=== PATIENT | male | born 1960 | race Caucasian/White ===

== ENCOUNTER 2018-05-28 05:49 | Inpatient (IN) ==
--- NOTE | 2018-05-08 09:18 | PAT Medication Instructions ---
Medication Instructions Date of Service May 08, 2018 Home Medications aspirin [Aspir-81] 81 mg PO DAILY atorvastatin 40 mg PO HS carbamazepine [Tegretol] 2 tab PO HS carbamazepine [Tegretol] 3 tab PO QAM carvedilol 3.125 mg PO BID clopidogrel 75 mg PO HS lamotrigine 300 mg PO HS multivitamin [Multiple Vitamins] 1 tab PO DAILY pantoprazole 40 mg PO HS ramipril 2.5 mg PO QAM ASK your prescriber and surgeon clopidogrel 75 mg PO HS aspirin [Aspir-81] 81 mg PO DAILY DO NOT take the morning of surgery multivitamin [Multiple Vitamins] 1 tab PO DAILY ramipril 2.5 mg PO QAM Take morning of surgery With a small sip of water, OTHERWISE NOTHING TO EAT OR DRINK AFTER MIDNIGHT: carbamazepine [Tegretol] 3 tab PO QAM carvedilol 3.125 mg PO BID Take evening before surgery atorvastatin 40 mg PO HS carbamazepine [Tegretol] 2 tab PO HS carvedilol 3.125 mg PO BID lamotrigine 300 mg PO HS pantoprazole 40 mg PO HS Other Notes If you have any questions please call us at [phone] or [phone] or [phone] or [phone]
--- NOTE | 2018-05-09 16:24 | PAT Medication Instructions ---
Medication Instructions Date of Service May 09, 2018 Home Medications aspirin [Aspir-81] 81 mg PO DAILY 05/02/18 05/02/18 05/02/18 atorvastatin 40 mg PO HS 05/02/18 05/02/18 05/01/18 carbamazepine [Tegretol] 2 tab PO HS 05/02/18 05/02/18 05/01/18 carbamazepine [Tegretol] 3 tab PO QAM 05/02/18 05/02/18 05/02/18 carvedilol 3.125 mg PO BID 05/02/18 05/02/18 05/02/18 clopidogrel 75 mg PO HS 05/02/18 05/02/18 05/01/18 lamotrigine 300 mg PO HS 05/02/18 05/02/18 05/01/18 multivitamin [Multiple Vitamins] 1 tab PO DAILY 05/02/18 05/02/18 05/02/18 pantoprazole 40 mg PO HS 05/02/18 05/02/18 05/01/18 ramipril 2.5 mg PO QAM Take morning of surgery With a small sip of water, OTHERWISE NOTHING TO EAT OR DRINK AFTER MIDNIGHT: Insulin Dependent Diabetic Patients * Test your blood sugar the morning of surgery * If Blood Sugar is GREATER THAN 150, take HALF of your regular dose of: * If Blood Sugar is LESS THAN 150, DO NOT TAKE ANY: Other Notes If you have any questions please call us at [phone] or [phone] or [phone] or [phone]
--- NOTE | 2018-05-10 12:01 | Anesthesiology Consultation ---
Date of Service May 10, 2018 Assessment & Plan (1) Encounter for pre-operative examination: - Continue ASA perioperatively; plavix on hold 7 days prior to surgery per surgeon/prescriber - Cardio= 10/02/17= "doing well from a cardiac standpoint.. remains active and has not had a recurrence in chest pains or shortness of breath." F/U in one year recommended. Chart Review Chart Review: Acceptable Risk for Surgery and Patient seen in Pre Admission Testing Teaching & Discussion Pre-Anesthesia Teaching/Discussion Notes: Instructed NPO after midnight before surgery,except medications with 15 cc of water. Medication instructions provided according to the PAT guidelines. History Surgery Operation Date: 05/28/18 12:05 Proposed Procedures p L3-S1 Decompression and Fusion - Joe Palafox DO Height/Weight Height: 5 ft 11 in Weight: 99.1 kg Allergies Allergy/AdvReac Type Severity Reaction Status Date / Time iv contrast AdvReac Intermediate SEE NOTES Uncoded 05/10/18 12:57 Medications Home Medications Medication Instructions Recorded Confirmed Last Taken aspirin [Aspir-81] 81 mg PO DAILY 05/02/18 05/02/18 05/02/18 atorvastatin 40 mg PO HS 05/02/18 05/02/18 05/01/18 carbamazepine [Tegretol] 2 tab PO HS 05/02/18 05/10/18 Unknown carbamazepine [Tegretol] 3 tab PO QAM 05/02/18 05/10/18 Unknown carvedilol 3.125 mg PO BID 05/02/18 05/02/18 05/02/18 clopidogrel 75 mg PO HS 05/02/18 05/02/18 05/01/18 lamotrigine 300 mg PO HS 05/02/18 05/02/18 05/01/18 multivitamin [Multiple Vitamins] 1 tab PO DAILY 05/02/18 05/02/18 05/02/18 pantoprazole 40 mg PO HS 05/02/18 05/02/18 05/01/18 ramipril 2.5 mg PO QAM 05/02/18 05/02/18 05/02/18 Past Medical History Medical History Acid reflux 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 CAD (coronary artery disease) S/P STENTS X 2 TO [facility] (2014) Grand mal seizure LAST SEIZURE 30+ YEARS AGO History of heart attack S/P STENTS X 2 TO [facility] (2014) Obesity Scoliosis Past Family History Family History Father Family history of lung cancer Past Surgical History Surgical History History of appendectomy History of cardiac cath 2015= STENTS X 2 History of colonoscopy History of foot surgery B/L (CYSTECTOMY) History of hernia repair Past Anesthesia History No Family Hx of Anesthesia Complications and Other DIFFICULTY URINATING POST-OP FOOT SURGERY History of PONV No Motion Sickness Screening History of Motion Sickness: No Social History Smoking Status: Never smoker Do You Dip or Chew Tobacco: No Hx Alcohol Use: No Hx Substance Use: No substance use type: does not use Exercise / Class Metabolic Activity III < 4 Walking/Shop/Light housework Review of Systems Patient reports LBP with B/L radiculopathy/neuropathy. Patient denies chest pain, shortness of breath, dyspnea on exertion, cough, wheezing, palpitations. Physical Exam Vital Signs VITALS BP 119/73 P 67 TEMP 97.5 SP02 96%RA RESP 18 PHYSICAL Full neck and c-spine range of motion. + cervicalgia with extension Full TMJ range of motion. TMD 3 finger breaths Mallampati Score 2 Dentition: "permanent partial" on lower Lungs: clear throughout to auscultation Cardiac: regular rate and rhythm, no murmurs noted Spine: normal Carotid arteries: negative bruit Extremities: no edema Testing Electrocardiogram Date: 05/10/18 Findings: + NSR @ (67) Chest X-Ray Date: 05/03/18 Findings: + NAD Left basilar subsegmental atelectasis without current evidence of alveolar consolidation. Heart mildly enlarged. Dextroscoliosis in thoracic spine again noted. Echocardiogram Date: 08/20/14 LVEF 60%. No RWMA. Mild MR. Cardiac Catheterization Date: 08/20/14 3V CAD (LAD, CX, RCA). LVEF "normal." Successful direct stenting to dRCA with Xience TRUNG. PTCA to right PDA. Unsuccessful PRCA of very small posterolateral branch 100% reduced to 40%. Laboratory Results 05/10/18 11:52 05/10/18 11:52 Blood Type B Positive 05/10/18 11:52 Antibody Screen NEGATIVE 05/10/18 11:52 PT 10.3 Seconds (9.0-12.0) 05/10/18 11:52 INR 1.0 (0.9-1.1) 05/10/18 11:52 APTT 24.6 Seconds (21.0-31.0) 05/10/18 11:52 Urine Color Dark Yellow 05/10/18 Unknown Urine Appearance Clear (Clear) 05/10/18 Unknown Urine pH 6.5 (4.5-7.5) 05/10/18 Unknown Ur Specific [place] 1.029 (1.000-1.030) 05/10/18 Unknown Urine Protein Negative (Negative) 05/10/18 Unknown Urine Glucose (UA) Negative (Negative) 05/10/18 Unknown Urine Ketones Trace (Negative) H 05/10/18 Unknown Urine Nitrite Negative (Negative) 05/10/18 Unknown Ur Leukocyte Esterase Negative (Negative) 05/10/18 Unknown
[2018-05-10 13:11] LABS: Basophils # (auto) 0.05 K/uL (0-0.2); Basophils % (auto) 0.9 %; Eosinophils # (auto) 0.14 K/uL (0-0.5); Eosinophils % (auto) 2.5 %; Hematocrit (blood only) 44.7 % (42-52); Hemoglobin 15.5 g/dL (14.0-18.0); Immature Granulocytes # (auto) 0.01 K/uL (0.00-0.02); Immature Granulocytes % (auto) 0.2 %; Lymphocytes # (auto) 2.17 K/uL (1.2-3.4); Lymphocytes % (auto) 38.3 %; Mean Corpuscular Hgb Conc 34.7 g/dL (32-36); Mean Corpuscular Volume 94.3 fL (80-100); Mean Platelet Volume 9.5 fL (7.4-10.4); Monocytes # (auto) 0.61 K/uL (0.11-0.59); Monocytes % (auto) 10.8 %; Neutrophils # (auto) 2.69 K/uL (1.4-6.5); Neutrophils % (auto) 47.3 %; Platelet Count 242 K/uL (130-400); RDW Coefficient of Variation 12.4 % (11.5-14.5); RDW Standard Deviation 42.6 fL (36.4-46.3); Red Blood Count 4.74 M/uL (4.7-6.1); White Blood Count 5.67 K/uL (4.8-10.8)
[2018-05-10 13:13] LABS: Appearance Urine Clear (Clear); Bilirubin Urine Negative (Negative); Blood Urine Negative (Negative); Color Urine Dark Yellow; Glucose Urine UA Negative (Negative); Ketones Urine Trace (Negative); Leukocyte Esterase Urine Negative (Negative); Nitrite Urine Negative (Negative); Protein Urine Negative (Negative); Specific Gravity Urine 1.029 (1.000-1.030); Urobilinogen Urine Negative (Negative); pH Urine 6.5 (4.5-7.5)
[2018-05-10 13:25] LABS: Partial Thromboplastin Ratio 0.9; Partial Thromboplastin Time 24.6 Seconds (21.0-31.0); Prothrombin Time 10.3 Seconds (9.0-12.0)
[2018-05-10 14:40] LABS: BUN Creatinine Ratio 13.3 (10-20); Calcium 8.2 mg/dl (8.5-10.1); Creatinine Clr Calc Pharmacy 88.4 ml/min; Est GFR (African American) 86.6; Est GFR (Non-African American) 74.7
[2018-05-28] MEDS ORDERED: CeleBREX 200 MG CAP PO SCH (06:00)
[2018-05-28] MEDS ORDERED: GABAPENTIN 300 MG PO SCH (06:00)
[2018-05-28] MEDS ORDERED: ACETAMINOPHEN 500 MG TAB PO SCH (06:00)
[2018-05-28] MEDS ORDERED: CEFAZOLIN 3000MG 65 ML IV SCH (06:00)
[2018-05-28] MEDS ORDERED: LR 15ML/HR IV SCH (06:00)
[2018-05-28] MEDS ORDERED: HYDROmorphone INJ 2 MG/ML SYR/VIAL ONE ×2 (06:28→09:11)
[2018-05-28] MEDS ORDERED: GLYCOPYRROLATE 0.2 MG/ML VIAL ONE (06:28)
[2018-05-28] MEDS ORDERED: NEOSTIGMINE METHYLSULFATE 1 MG/ML 10ML VIAL ONE (06:28)
[2018-05-28] MEDS ORDERED: LIDOCAINE HCL 2% 2 ML VIAL/AMP(20MG/ML) INFIL ONE (06:28)
[2018-05-28] MEDS ORDERED: ONDANSETRON INJ 2 MG/ML 2 ML VIAL ONE (06:28)
[2018-05-28] MEDS ORDERED: MIDAZOLAM HCL 1 MG/ML 2ML VIAL ONE (06:28)
[2018-05-28] MEDS ORDERED: DEXAMETHASONE SOD INJ 4 MG/ML VIAL ONE (06:28)
[2018-05-28] MEDS ORDERED: ROCURONIUM BROMIDE 10 MG/ML 5 ML VIAL ONE ×2 (06:28→10:17)
[2018-05-28] MEDS ORDERED: PROPOFOL IV EMULSION 10 MG/ML 20 ML VIAL IV ONE (06:28)
[2018-05-28] MEDS ORDERED: fentaNYL citrate 100 MCG/2 ML VIAL ONE ×4 (06:28→09:53)
[2018-05-28] MEDS ORDERED: BACITRACIN INJ 50,000 UNIT VIAL ONE (06:53)
[2018-05-28] MEDS ORDERED: BUPIVACAINE/EPINEPHRINE 0.5% MPF 1:200,000 30 ML VIAL ONE (06:53)
[2018-05-28] MEDS ORDERED: SODIUM CHLORIDE 0.9% INJ 10 ML VIAL ONE (07:14)
--- NOTE | 2018-05-28 07:29 | History & Physical Bridge Note ---
Date of Service May 28, 2018 History & Physical Bridge Note I have examined the patient, reviewed the History & Physical and in the interval since the performance of the History & Physical I have noted the following changes of clinical significance: no changes noted
--- NOTE | 2018-05-28 07:30 | History & Physical Report ---
Date of Service May 28, 2018 Assessment & Plan (1) Spinal stenosis, lumbar region with neurogenic claudication: L3-S1 decompression and fusion Present on Admission?: Yes History of Present Illness Chief Complaint: Back and leg pain Primary Care Provider: Roland Cali This is a 57-year-old male that presents with chronic persistent back and leg pain. After failing extensive course of nonoperative care is here for surgical intervention. Allergies Allergy/AdvReac Type Severity Reaction Status Date / Time iv contrast AdvReac Intermediate SEE NOTES Uncoded 05/28/18 06:12 Home Medications Home Medications Medication Instructions Recorded Confirmed Type aspirin [Aspir-81] 81 mg PO DAILY 05/02/18 05/02/18 History atorvastatin 40 mg PO HS 05/02/18 05/28/18 History carbamazepine [Tegretol] 2 tab PO HS 05/02/18 05/28/18 History carbamazepine [Tegretol] 3 tab PO QAM 05/02/18 05/10/18 History carvedilol 3.125 mg PO BID 05/02/18 05/02/18 History clopidogrel 75 mg PO HS 05/02/18 05/02/18 History lamotrigine 300 mg PO HS 05/02/18 05/02/18 History multivitamin [Multiple Vitamins] 1 tab PO DAILY 05/02/18 05/28/18 History ramipril 2.5 mg PO QAM 05/02/18 05/02/18 History Past Med/Surg History Family History Father Family history of lung cancer Social History Preferred Language: Salvadorean Communication Ability: Effective Communication Ability Comment: NO EYESIGHT RIGHT EYE Food Or Baggage Handling [place] Required: No Beliefs That Will Affect Care: None Current Living Situation: Spouse Other Information That Helps Us Care for You: No Feels Safe at Home: Yes Smoking Status: Never smoker Hx Alcohol Use: No Hx Substance Use: No Physical Exam Vital Signs (Past 24 Hours): Last Vital Signs Temp 36.8 C 05/28/18 06:16 Pulse 79 05/28/18 06:16 Resp 16 05/28/18 06:16 BP 134/83 05/28/18 06:16 Pulse Ox 95 05/28/18 06:16 Results & Data Medications Administered Acetaminophen (Tylenol) 1,000 mg PO PREOP GRACE Stop: 05/28/18 18:00 Last Admin: 05/28/18 06:31 Dose: 1,000 mg Documented by: [id number] Celecoxib (Celebrex) 200 mg PO PREOP GRACE Stop: 05/28/18 18:00 Last Admin: 05/28/18 06:31 Dose: 200 mg Documented by: [id number] Gabapentin (Neurontin) 300 mg PO PREOP GRACE Stop: 05/28/18 18:00 Last Admin: 05/28/18 06:31 Dose: 300 mg Documented by: [id number] Lactated Ringer's (Lr) 1,000 mls @ 15 mls/hr IV .Q24H GRACE Stop: 05/29/18 05:59 Last Admin: 05/28/18 06:34 Dose: 15 mls/hr Documented by: [id number]
[2018-05-28] MEDS ORDERED: MEPERIDINE HCL 25 MG/ML CARP IV PRN (07:35)
[2018-05-28] MEDS ORDERED: LABETALOL HCL IV 5 MG/ML 20ML IV PRN (07:35)
[2018-05-28] MEDS ORDERED: fentaNYL citrate 100 MCG/2 ML VIAL IV PRN (07:35)
[2018-05-28] MEDS ORDERED: PHENYLEPHRINE 100MCG/ML 5ML SYR IV PRN (07:35)
[2018-05-28] MEDS ORDERED: ONDANSETRON INJ 2 MG/ML 2 ML VIAL IV PRN (07:35)
[2018-05-28] MEDS ORDERED: ePHEDrine sulfate 50 MG/ML AMP IV PRN (07:35)
[2018-05-28] MEDS ORDERED: HYDROmorphone INJ 1 MG/ML SYRINGE IV PRN (07:35)
[2018-05-28] MEDS ORDERED: ATROPINE SULFATE 0.1 MG/ML 10ML SYR IV PRN (07:35)
[2018-05-28] MEDS ORDERED: FLOSEAL HEMOSTATIC MATRIX 10ML TOP ONE (08:11)
[2018-05-28] MEDS ORDERED: ePHEDrine sulfate 50 MG/ML SYR ONE (08:43)
[2018-05-28] MEDS ORDERED: PHENYLEPHRINE 100MCG/ML 5ML SYR ONE (08:43)
[2018-05-28] MEDS ORDERED: ePHEDrine sulfate 50 MG/ML AMP ONE (08:43)
[2018-05-28] MEDS ORDERED: ALBUMIN HUMAN 5% 12.5 GM/250 ML VIAL IV ONE ×2 (09:11→10:15)
[2018-05-28] MEDS ORDERED: METOCLOPRAMIDE HCL INJ 5 MG/ML 2 ML VIAL ONE (09:33)
--- NOTE | 2018-05-28 10:29 | Operative Report ---
Post Operative Report Pre & Post Diagnosis Operation Date: 05/28/18 07:45 Pre-Op Diagnosis: Spinal stenosis, lumbar region with neurogenic claudication Post-Op Diagnosis: Spinal stenosis, lumbar region with neurogenic claudication Procedure Operation Date: 05/28/18 07:45 Actual Procedures #1 lumbar decompression medial facetectomies foraminotomies L2-3 L3-4 L4-5 L5-S1 #2 posterior spinal fusion L3-4 L4-5 L5-S1. #3 placement posterior segmental instrumentation L3-S1. #4 interbody fusion L3-4 L4-5 per #5 placement of titanium cage 12 x 26 at L3-4 and 9 x 26 at L4-5. #6 treatment of local autograft in the posterior gutters. #7 placement Feese collagen sponge, mass graft in the posterior gutters and ostial amp and interbody space. Surgeon Joe Palafox DO Informatica Amna Vargas Estimated Blood Loss 750 Findings Consistent with Post-Op Diagnosis Specimens None Description of Procedure Patient was met with preoperatively case discussed all questions addressed. After informed consent obtained patient was taken to the operative suite underwent intubation and placed in a prone position on the Miguel table on top of the Lino frame. All bony prominences well-padded eyes inspected to ensure no external pressure placed upon. This point the lumbar spine was prepped and draped in the normal sterile fashion. Sharp dissection with the assistance of Bovie cautery was performed down to and exposing the lamina and transverse process of L3-L4-L5 and sacral ala bilaterally. From a caudal to cephalad fashion complete laminectomy of L5 L4 L3 partial laminectomy of L2 was performed including bilateral medial facetectomies and foraminotomies addressing severe stenosis. Pedicle screws were then placed in L3-L4-L5 and S1 levels bilaterally with assistance of fluoroscopy and the purposes madison placed by way of a transforaminal portion right complete discectomy of L4-5 was performed and endplates curetted to subcortical B bone and a 9 x 26 mm titanium cage filled ostium bone graft tapped in position. Then proceeded L3-[address] of a transforaminal approach on the right complete discectomy performed including the herniated disc completely removed. Endplates then curetted to subcortical mean bone and a 12 x 26 mm titanium cage filled with ostium bone graft tapped in position. The rods were then locked in final position bilaterally. The transverse processes of L3-L4-L5 and sacral ala bur to subcortical B bone. Infuse collagen sponge mass graft local autograft placed in the posterior gutters. 15 round KEERTHI drain inserted. Incision was then closed with 1 Vicryl in the fascia 2-0 Vicryl subtenons seen for Monocryl for final skin closure Steri- Strip sterile dressings placed. Patient will continue to PACU stable condition. Please note Amna Vargas present throughout the entire procedure involved in patient positioning complex portions of the surgery and final skin closure. I attest to the content of the Intraoperative Record and any orders documented therein. Any exceptions are noted below.
--- NOTE | 2018-05-28 10:34 | Fluoroscopy Report ---
FL lumbar spine 2-3V CLINICAL HISTORY: 57 years-old Male presenting with L4-5 DECOMPRESSION/FUSION. TECHNIQUE: 3 fluoroscopic image(s) recorded as part of an intraoperative procedure. COMPARISON: None. FINDINGS/IMPRESSION: Postsurgical changes of bilateral posterior transpedicular screw not fixation of L3-S1 with associate d laminectomy defects and interbody spacers at L3-4 and L4-5. Please see surgical report for further details. Fluoroscopy dosage (mGy): 19.43. Fluoroscopy time: 21.2 seconds. Number or time of high level fluoroscopy (HLF), digital spot, or digital subtraction images: 0. Electronically signed by: Jean Barone M.D. 05/28/2018 10:33 AM
[2018-05-28] MEDS ORDERED: ESMOLOL HCL INJ 10 MG/ML 10ML VIAL IV ONE (10:50)
--- NOTE | 2018-05-28 11:07 | Anesthesiology Progress Note ---
Date of Service May 28, 2018 Anesthesia Post Procedure Vital Signs Vital Signs: Temp Pulse Pulse Resp BP Pulse Ox 05/28/18 11:05 84 15 147/90 H 100 05/28/18 10:55 84 15 142/80 H 99 05/28/18 10:46 36.8 C 84 20 128/76 99 05/28/18 06:16 36.8 C 79 16 134/83 95 Pain Intensity Bilateral Lower Back: Pain Intensity: 2 Back: Pain Intensity: 0 Notes Mental Status: alert / awake / arousable Patient Amnestic to Procedure: Yes Nausea / Vomiting: adequately controlled Pain: adequately controlled Airway Patency, RR, SpO2: stable & adequate BP & HR: stable & adequate Hydration State: stable & adequate Anesthetic Complications: no major complications apparent and Pt Satisfied with anesthetic care Notes: The patient is awake and his vital signs are stable.
[2018-05-28] MEDS ORDERED: BISACODYL 10 MG SUPP PR PRN (11:41)
[2018-05-28] MEDS ORDERED: METOCLOPRAMIDE HCL INJ 5 MG/ML 2 ML VIAL IV PRN (11:41)
[2018-05-28] MEDS ORDERED: ONDANSETRON 4 MG TAB PO PRN (11:41)
[2018-05-28] MEDS ORDERED: DO NOT ADMINISTER FLU VACCINE PRN (11:41)
[2018-05-28] MEDS ORDERED: TRAMADOL HCL 50 MG TABLET PO PRN (11:41)
[2018-05-28] MEDS ORDERED: FAMOTIDINE 20 MG TAB PO PRN (11:41)
[2018-05-28] MEDS ORDERED: OXYCODONE HCL IR 5 MG TAB (IMMEDIATE RELEASE) PO PRN (11:41)
[2018-05-28] MEDS ORDERED: HYDROmorphone INJ 0.5 MG/0.5 ML SYR IV PRN (11:41)
[2018-05-28] MEDS ORDERED: DO NOT ADMINISTER PNEUMOCOCCAL VACCINE PRN (11:41)
[2018-05-28] MEDS ORDERED: ALUMINUM/MAGNESIUM SUSP 30 ML UDC PO PRN (11:41)
[2018-05-28] MEDS ORDERED: LORazepam 0.5 MG/1 ML VIAL IV PRN (11:41)
[2018-05-28] MEDS ORDERED: PROMETHAZINE HCL 12.5 MG in SODIUM CHLORIDE 0.9% 50 ML IV PRN (11:41)
[2018-05-28] MEDS ORDERED: ACETAMINOPHEN 1,000 MG/100 ML VIAL IV PRN (11:41)
[2018-05-28] MEDS ORDERED: LORazepam 0.5 MG TAB PO PRN (11:41)
[2018-05-28] MEDS ORDERED: SOD PHOSPHATE/SOD BIPHOSPHATE ENEMA 132 ML BTL PR PRN (11:41)
[2018-05-28] MEDS ORDERED: MAGNESIUM HYDROXIDE SUSP 30 ML UDC PO PRN (11:41)
[2018-05-28] MEDS: LACTATED RINGER'S 1,000 ML IV SCH ×2 (12:51→20:27)
[2018-05-28] MEDS ORDERED: LARYING-O-JET KIT (LTA) ONE (13:39)
[2018-05-28] MEDS: KETOROLAC TROMETHAMINE 15 MG/ML VIAL IV SCH ×3 (13:52→23:34)
--- NOTE | 2018-05-28 13:59 | Consultation ---
Date of Consultation May 28, 2018 Assessment & Plan (1) Status post lumbar surgery: Post op day# 0 S/P Lumbar Decompression and Fusion L3-S1 by Dr Palafox Currently post op pt reports pain controlled EBL#750ml -pain management per ortho -recommend avoiding tramadol as pt with seizure disorder -wound management per ortho -PT/OT as appropriate -DVT prophylaxis per ortho -incentive spirometry -monitor H&H for acute blood loss anemia (2) CAD (coronary artery disease): Hx STEMI and cardiac cath s/p Stent to RCA & Right posterior descending artery on 08/20/[address] [facility] Denies CP, SOB -plavix has been on hold for one week, resume when appropriate per ortho -continue aspirin, atorvastain, carvedilol -hold ramipril at this time while post-op and reassess tomorrow (3) Seizure disorder: Reports hasn't had a seizure for several years -continue Tegretol, lamotrigine -recommend avoiding tramadol DVT Prophylaxis -SCDs per ortho Follows with Dr Viraj Hooks for routine care Pt was seen with Dr Castillo. See addendum Pt will be followed tomorrow by Dr Castillo. Supervising Physician Co-Signing Physician Notes Pt was seen and examined. Agreed with Jimena FOSTER exam, assessment and plan. S/P day#0 Lumbar Decompression and Fusion L3-S1 by Dr Palafox. Pain control. Incentive spirometry. Fall precaution. Montior H/H. Thank you for the consult MD Jonathan History of Present Illness Reason for Consultation: Postop medical management Attending Physician: Joe Palafox DO History of Present Illness Patient is 57-year-old male with PMH seizure disorder, CAD s/p stent to RCA and right posterior descending in 2014 seen in postop medical management consult s/p lumbar decompression and fusion L3-S1 today by Dr. Palafox. Post op patient reports doing well current pain.Denies fever/chills, diaphoresis, N/V/D/C, REDDY, dizziness, syncope, vision changes, neck pain, CP, SOB, orthopnea, palpitations, cough, sore throat, choking, otalgia, rhinorrhea, abdominal pain, paresthesias, weakness, extremity weakness, extremity edema, rashes, urinary symptoms. Reports some mild numbness/tingling sensation to left foot. States prior to surgery had numbness tingling of bilateral feet and feels this has much improved. Currently has urinary catheter in. Reports last BM yesterday. Drinking fluids well. Denies any nausea or vomiting. Denies fever/chills, diaphoresis, REDDY, dizziness, seizure, CP, SOB, palpitations, cough, sore throat, choking, abdominal pain, p extremity edema, rashes. Allergies Allergy/AdvReac Type Severity Reaction Status Date / Time iv contrast AdvReac Intermediate SEE NOTES Uncoded 05/28/18 06:12 Home Medications Home Medications Medication Instructions Recorded Confirmed Type aspirin [Aspir-81] 81 mg PO DAILY 05/02/18 05/02/18 History atorvastatin 40 mg PO HS 05/02/18 05/28/18 History carvedilol 3.125 mg PO BID 05/02/18 05/02/18 History clopidogrel 75 mg PO HS 05/02/18 05/02/18 History multivitamin [Multiple Vitamins] 1 tab PO DAILY 05/02/18 05/28/18 History ramipril 2.5 mg PO BID 05/02/18 05/28/18 History carbamazepine [Tegretol XR] 400 mg PO PM 05/28/18 05/28/18 History carbamazepine [Tegretol XR] 600 mg PO DAILY 05/28/18 05/28/18 History oxycodone 5 mg PO Q4H PRN #30 tab 05/28/18 Rx lamotrigine [Lamictal XR] 300 mg PO DAILY 05/30/18 05/30/18 History Patient History Medical History CAD (coronary artery disease) (Chronic) Hx STEMI and cardiac cath s/p Stent to RCA & Right posterior descending artery on 08/20/[address] Alexei Ortiz [facility] Seizure disorder (Chronic) Blindness (Chronic) RIGHT EYE S/P IV CONTRAST DYE REACTION Obesity (Chronic) Scoliosis (Chronic) Acid reflux (Resolved) Surgical History History of cardiac cath (Chronic) H/O umbilical hernia repair (Chronic) H/O inguinal hernia repair (Chronic) History of colonoscopy (Chronic) History of foot surgery (Resolved) B/L (CYSTECTOMY) History of appendectomy Social History Preferred Language: Khmer Beliefs That Will Affect Care: None marital status: Current Living Situation: Spouse Other Information That Helps Us Care for You: No Feels Safe at Home: Yes Smoking Status: Never smoker Hx Alcohol Use: No Hx Substance Use: No Review of Systems As per HPI, all other systems reviewed and negative Physical Exam Vital Signs (Past 24 Hours): Last Vital Signs Temp 36.3 C L 05/28/18 13:48 Pulse 83 05/28/18 13:48 Resp 16 05/28/18 13:48 BP 120/74 05/28/18 13:48 Pulse Ox 100 05/28/18 13:48 Physical Exam: General: no distress, obeses Head: normocephalic, atraumatic Eyes:conjunctiva non-injected, anicteric ENT: normal inspection external ears, nose, mucous membranes moist Neck: supple, trachea midline Lungs: clear, no respiratory distress, no wheezing/rhonchi/rales CV: RRR, no murmur, no pretibial edema Abd: normal BS, soft, protuberant, non-tender Ext: no cyanosis, no calf tenderness, bilateral pedal pushes and pulls intact, distal pulses intact Neuro: A&O x 3, no focal deficits noted, normal affect Skin: warm, dry
[2018-05-28] MEDS: CEFAZOLIN 2000MG 2,000 MG/15 ML SYR IV SCH ×2 (17:59→23:34)
[2018-05-28] MEDS: CARBAMAZEPINE 200 MG PO SCH (20:30)
[2018-05-28] MEDS: DOCUSATE SODIUM/SENNA 50/8.6MG TAB PO SCH (20:31)
[2018-05-28] MEDS: ATORVASTATIN 40 MG TAB PO SCH (20:31)
[2018-05-28] MEDS: CARVEDILOL 3.125 MG TAB PO SCH (20:31)
[2018-05-28] MEDS: lamoTRIgine 100 MG TAB PO SCH (20:31)
[2018-05-28] MEDS ORDERED: carBAMazepine 200 MG TABLET PO SCH (21:00)
[2018-05-28] MEDS ORDERED: CARBAMAZEPINE 200 MG TABCR PO SCH (21:00)
[2018-05-29] MEDS: LACTATED RINGER'S 1,000 ML IV SCH (03:17)
[2018-05-29] MEDS: POLYETHYLENE (MIRALAX) 17 GM PACK PO SCH ×4 (05:14→23:17)
[2018-05-29] MEDS: KETOROLAC TROMETHAMINE 15 MG/ML VIAL IV SCH (05:14)
[2018-05-29 05:48] LABS: Basophils # (auto) 0.01 K/uL (0-0.2); Basophils % (auto) 0.1 %; Eosinophils # (auto) 0.05 K/uL (0-0.5); Eosinophils % (auto) 0.7 %; Hematocrit (blood only) 30.7 % (42-52); Hemoglobin 10.5 g/dL (14.0-18.0); Immature Granulocytes # (auto) 0.01 K/uL (0.00-0.02); Immature Granulocytes % (auto) 0.1 %; Lymphocytes # (auto) 1.38 K/uL (1.2-3.4); Lymphocytes % (auto) 20.4 %; Mean Corpuscular Hgb Conc 34.2 g/dL (32-36); Mean Platelet Volume 8.7 fL (7.4-10.4); Monocytes # (auto) 0.74 K/uL (0.11-0.59); Monocytes % (auto) 10.9 %; Neutrophils # (auto) 4.59 K/uL (1.4-6.5); Neutrophils % (auto) 67.8 %; Platelet Count 150 K/uL (130-400); RDW Coefficient of Variation 12.3 % (11.5-14.5); RDW Standard Deviation 41.8 fL (36.4-46.3); White Blood Count 6.78 K/uL (4.8-10.8)
[2018-05-29 06:22] LABS: BUN Creatinine Ratio 15.4 (10-20); Creatinine Clr Calc Pharmacy 104.3 ml/min; Est GFR (African American) 106.5; Est GFR (Non-African American) 91.9; Potassium 3.7 mmol/L (3.5-5.1)
--- NOTE | 2018-05-29 07:19 | Anesthesiology Progress Note ---
Date of Service May 29, 2018 Anesthesia Post Procedure Vital Signs Vital Signs: Temp Pulse Pulse Resp BP BP Pulse Ox 05/29/18 05:24 110/64 05/29/18 03:15 37.2 C 92 H 15 91/52 L 93 05/28/18 23:18 36.7 C 77 16 111/64 99 05/28/18 19:59 36.4 C L 78 17 107/65 100 05/28/18 14:35 82 18 114/71 100 05/28/18 13:48 36.3 C L 83 16 120/74 100 05/28/18 12:38 36.3 C L 84 16 126/79 97 05/28/18 12:10 36.3 C L 77 16 126/78 100 05/28/18 11:48 36.3 C L 82 16 151/84 H 98 05/28/18 11:25 82 15 143/88 H 97 05/28/18 11:15 36.6 C 81 14 142/83 H 97 05/28/18 11:05 84 15 147/90 H 100 05/28/18 10:55 84 15 142/80 H 99 05/28/18 10:46 36.8 C 84 20 128/76 99 Pain Intensity Bilateral Lower Back: Pain Intensity: 2 Back: Pain Intensity: 1 Notes Mental Status: alert / awake / arousable Patient Amnestic to Procedure: Yes Nausea / Vomiting: adequately controlled Pain: adequately controlled Airway Patency, RR, SpO2: stable & adequate BP & HR: stable & adequate Hydration State: stable & adequate Anesthetic Complications: no major complications apparent and Pt Satisfied with anesthetic care
[2018-05-29] MEDS: CARVEDILOL 3.125 MG TAB PO SCH ×2 (08:28→21:20)
[2018-05-29] MEDS: MULTIVITAMIN TAB PO SCH (08:28)
[2018-05-29] MEDS: ASPIRIN 81 MG ECTAB PO SCH (08:28)
[2018-05-29] MEDS: CARBAMAZEPINE 200 MG PO SCH ×2 (08:29→21:21)
[2018-05-29] MEDS ORDERED: CARBAMAZEPINE 200 MG TABCR PO SCH (09:00)
[2018-05-29] MEDS ORDERED: ENALAPRIL MALEATE 10 MG TAB PO SCH (09:00)
--- NOTE | 2018-05-29 11:35 | Orthopedic Progress Note ---
Date of Service May 29, 2018 Assessment & Plan (1) Spinal stenosis, lumbar region with neurogenic claudication: We will initiate physical therapy today advance his bowel regiment anticipate discharge home in the next few days. Present on Admission?: Yes Subjective Patient's back pain is controlled leg pain improved Physical Exam Vital Signs (Past 24 Hours): Last Vital Signs Temp 37.1 C 05/29/18 11:31 Pulse 87 05/29/18 11:31 Resp 18 05/29/18 11:31 BP 107/63 05/29/18 09:45 Pulse Ox 97 05/29/18 11:31 Physical Exam: Patient demonstrates good strength testing appears comfortable.
[2018-05-29 16:14] LABS: Appearance Urine Clear (Clear); Bacteria Urine Automated Negative (Negative); Bilirubin Urine Negative (Negative); Blood Urine 1+ (Negative); Cast Urine Automated 0 /lpf (0-5); Color Urine Yellow; Epithelial Cell Urine Auto 0-5 /lpf (0-5); Glucose Urine UA Negative (Negative); Ketones Urine Negative (Negative); Leukocyte Esterase Urine Negative (Negative); Nitrite Urine Negative (Negative); Protein Urine Negative (Negative); RBC Urine Automated 0-4 /hpf (0-4); Specific Gravity Urine 1.014 (1.000-1.030); Urobilinogen Urine Negative (Negative); WBC Urine Automated 0 /hpf (0-5)
--- NOTE | 2018-05-29 16:41 | Consultation ---
Date of Consultation May 29, 2018 History of Present Illness Attending Physician: Joe Palafox DO Allergies Allergy/AdvReac Type Severity Reaction Status Date / Time iv contrast AdvReac Intermediate SEE NOTES Uncoded 05/28/18 06:12 Home Medications Home Medications Medication Instructions Recorded Confirmed Type aspirin [Aspir-81] 81 mg PO DAILY 05/02/18 05/02/18 History atorvastatin 40 mg PO HS 05/02/18 05/28/18 History carvedilol 3.125 mg PO BID 05/02/18 05/02/18 History clopidogrel 75 mg PO HS 05/02/18 05/02/18 History lamotrigine 300 mg PO PM 05/02/18 05/28/18 History multivitamin [Multiple Vitamins] 1 tab PO DAILY 05/02/18 05/28/18 History ramipril 2.5 mg PO BID 05/02/18 05/28/18 History carbamazepine [Tegretol XR] 400 mg PO PM 05/28/18 05/28/18 History carbamazepine [Tegretol XR] 600 mg PO DAILY 05/28/18 05/28/18 History oxycodone 5 mg PO Q4H PRN #30 tab 05/28/18 Rx Patient History Medical History CAD (coronary artery disease) (Chronic) Hx STEMI and cardiac cath s/p Stent to RCA & Right posterior descending artery on 08/20/[address] Alexei Ortiz [facility] Seizure disorder (Chronic) Scoliosis (Chronic) Acid reflux (Resolved) Blindness (Chronic) RIGHT EYE S/P IV CONTRAST DYE REACTION Obesity (Chronic) Surgical History History of cardiac cath (Chronic) H/O umbilical hernia repair (Chronic) H/O inguinal hernia repair (Chronic) History of colonoscopy (Chronic) History of foot surgery (Resolved) B/L (CYSTECTOMY) History of appendectomy Social History Preferred Language: Eritrean Communication Ability: Effective Communication Ability Comment: NO EYESIGHT RIGHT EYE Confidential Secretary Required: No Beliefs That Will Affect Care: None Current Living Situation: Spouse Other Information That Helps Us Care for You: No Feels Safe at Home: Yes Smoking Status: Never smoker Hx Alcohol Use: No Hx Substance Use: No Physical Exam Vital Signs (Past 24 Hours): Last Vital Signs Temp 37.0 C 05/29/18 15:19 Pulse 89 05/29/18 15:19 Resp 17 05/29/18 15:19 BP 125/73 05/29/18 15:19 Pulse Ox 96 05/29/18 15:19
[2018-05-29] MEDS ORDERED: ALBUT/IPRATROP 3MG/0.5MG NEB 3 ML VIAL NEB PRN (17:11)
[2018-05-29] MEDS ORDERED: SODIUM CHLORIDE 0.9% 1000ML 1,000 ML IV SCH (17:15)
--- NOTE | 2018-05-29 18:06 | Hospitalist Progress Note ---
Date of Service May 29, 2018 Assessment & Plan (1) Status post lumbar surgery: S/P day 1Lumbar Decompression and Fusion L3-S1 by Dr Palafox Pain controlled Continue PT/OT Incentive spirometry Hgb dropped to 10.5 Monitor H/H (2) Acute blood loss anemia: Due to post-op Hgb pre-op was 15 Hgb dropped to 10.5 today Monitor CBC daily and transfuse if needed (3) CAD (coronary artery disease): Hx STEMI and cardiac cath s/p Stent to RCA & Right posterior descending artery on 08/20/[address] [facility] continue aspirin, atorvastain, carvedilol Denies any chest pain Resume plavix when bleeding stable (4) Seizure disorder: continue Tegretol, lamotrigine recommend avoiding tramadol No seizure activity for years Dizziness Possible related to acute blood loss Will give 1L NS Fall precaution Monitor H/H DVT Prophylaxis SCDs per ortho CODE STATUS FULL CODE Subjective Pt was seen and examined Sitting in chair with no distress Pt said that he feels dizzy He said that his pain is control Denies any chest pain, palpitation and SOB Physical Exam Vital Signs (Past 24 Hours): Last Vital Signs Temp 37.0 C 05/29/18 15:19 Pulse 89 05/29/18 15:19 Resp 17 05/29/18 15:19 BP 125/73 05/29/18 15:19 Pulse Ox 96 05/29/18 15:19 Physical Exam: General: no distress, obeses Head: normocephalic, atraumatic Eyes:conjunctiva non-injected, anicteric ENT: normal inspection external ears, nose, mucous membranes moist Neck: supple, trachea midline Lungs: clear, no respiratory distress, no wheezing/rhonchi/rales CV: RRR, no murmur, no pretibial edema Abd: normal BS, soft, protuberant, non-tender Ext: no cyanosis, no calf tenderness, bilateral pedal pushes and pulls intact, distal pulses intact Neuro: A&O x 3, no focal deficits noted, normal affect Skin: warm, dry
[2018-05-29] MEDS: lamoTRIgine 100 MG TAB PO SCH (21:18)
[2018-05-29] MEDS: DOCUSATE SODIUM/SENNA 50/8.6MG TAB PO SCH (21:19)
[2018-05-29] MEDS: ATORVASTATIN 40 MG TAB PO SCH (21:19)
[2018-05-30] MEDS: ACETAMINOPHEN 500 MG TAB PO PRN (02:15)
[2018-05-30] MEDS: ONDANSETRON INJ 2 MG/ML 2 ML VIAL IV PRN (02:19)
[2018-05-30] MEDS: POLYETHYLENE (MIRALAX) 17 GM PACK PO SCH ×3 (05:13→18:51)
[2018-05-30 06:08] LABS: Hematocrit (blood only) 32.8 % (42-52); Mean Corpuscular Hgb Conc 33.5 g/dL (32-36); Platelet Count 167 K/uL (130-400); RDW Coefficient of Variation 12.3 % (11.5-14.5); RDW Standard Deviation 41.7 fL (36.4-46.3); Red Blood Count 3.49 M/uL (4.7-6.1); White Blood Count 8.77 K/uL (4.8-10.8)
[2018-05-30 06:37] LABS: BUN Creatinine Ratio 12.8 (10-20); Calcium 7.9 mg/dl (8.5-10.1); Creatinine Clr Calc Pharmacy 109.1 ml/min; Est GFR (African American) 109.5; Est GFR (Non-African American) 94.5; Potassium 4.4 mmol/L (3.5-5.1)
[2018-05-30] MEDS: ASPIRIN 81 MG ECTAB PO SCH (08:43)
[2018-05-30] MEDS: MULTIVITAMIN TAB PO SCH (08:43)
[2018-05-30] MEDS: CARVEDILOL 3.125 MG TAB PO SCH ×2 (08:43→22:49)
--- NOTE | 2018-05-30 10:28 | Hospitalist Progress Note ---
Date of Service May 30, 2018 Assessment & Plan (1) Status post lumbar surgery: POD # 2 s/p Lumbar Decompression and Fusion L3-S1 by Dr Palafox -Pt is doing well post-operatively -Per ortho for pain control, wound care, anticoagulation and activities -Continue incentive spirometry, PT/OT (2) Acute blood loss anemia: Post-op anemia. Hgb stable at 11 -Hgb pre-op was 15 -Continue monitoring CBC, transfuse if needed (3) CAD (coronary artery disease): Hx STEMI and cardiac cath s/p Stent to RCA & Right posterior descending artery on 08/20/[address] [facility] -Continue aspirin, atorvastain, carvedilol -Denies any chest pain -Resume plavix as soon as recommended, per primary (4) Seizure disorder: Continue Tegretol, lamotrigine -Recommend avoiding tramadol -No seizure activity for years DVT Prophylaxis: SCDs per ortho Code status: FULL Dispo: per primary service Patient seen in collaboration with Dr. Cota. Please see addendum. Supervising Physician Co-Signing Physician Notes [place] [address] Operative Report Signed Patient: ANANYA FIGUEROA Date: 05/28/18 MR#: [id number] Phy: Joe Palafox D.O. Acct ID:[id number] Phy: Roland CaliLeena Date: 1960Fa Phy: Age: 57Location: [facility] Sex: M Room/Bed: cc: Joe Palafox D.O.~ *NOTICE TO RECEIVING CONSTITUTION PARTY/AGENCY This information is strictly Confidential and protected under [place] law. [place] law prohibits you from making any further disclosure of this information unless further disclosure is expressly permitted by the written consent of the person to whom it pertains or is authorized by law. A general authorization for the release of medical or other information is not sufficient for this purpose. Hospital accepts no responsibility if the information is made available to any other person, INCLUDING THE PATIENT. I have seen and examined the patient with physician administration assistant and agree with assessment and plans of the medical recommendations being given to orthopedic team for the patient who had pre-op diagnosis of Spinal stenosis with lumbar region with neurogenic claudication and then on 05/28/18 had the following orthopedic procedures: #1 lumbar decompression medial facetectomies foraminotomies L2-3 L3-4 L4-5 L5-S1 #2 posterior spinal fusion L3-4 L4-5 L5-S1. #3 placement posterior segmental instrumentation L3-S1. #4 interbody fusion L3-4 L4-5 per #5 placement of titanium cage 12 x 26 at L3-4 and 9 x 26 at L4-5. #6 treatment of local autograft in the posterior gutters. #7 placement Feese collagen sponge, mass graft in the posterior gutters and ostial amp and interbody space. On exam patient declines distress General: sitting up right on chair Back: presence of KEERTHI drain with dressing on lower back Lungs: clear to auscultation bilaterally, no wheezing Heart: regular rate Extremities/Neuro: able to move extremities -the post op CBC is stable, recommend to resume plavix once KEERTHI drain removed and determined to be sufficient amount of time post-op as per orthopedics, continue other medications as above and anti-seizure medications Subjective Pt was seen and examined, standing with walker about to begin PT. Denies back or leg pain. No dizziness with standing. No chest pain or SOB. Urinating without catheter. + Flatus but no BM yet. Physical Exam Vital Signs (Past 24 Hours): Last Vital Signs Temp 36.5 C 05/30/18 07:08 Pulse 77 05/30/18 07:08 Resp 19 05/30/18 07:08 BP 141/72 H 05/30/18 07:08 Pulse Ox 99 05/30/18 10:00 Physical Exam: General Appearance: WD/WN, no apparent distress, standing with walker Head: normocephalic, atraumatic Eyes: normal inspection, PERRL, EOMI ENT: hearing grossly normal, pharynx normal (moist mucous membranes) Neck: supple, no JVD, no adenopathy Respiratory/Chest: lungs clear to auscultation. No wheezes, rales or rhonci. No respiratory distress or accessory muscle use Cardiovascular: regular rate, rhythm, no murmur, normal peripheral pulses Abdomen/GI: normal bowel sounds, soft, non-tender to palpation Extremities/Musculoskelatal: Lumbosacral bandage clean, dry, intact. KEERTHI drain visualized. Normal capillary refill, no pedal edema Neurologic/Psych: alert, normal mood/affect, oriented x 3 Skin: normal color, warm/dry Results & Data Laboratory Results Short CBC 05/30/18 Range/Units 05:38 WBC 8.77 (4.8-10.8) K/uL Hgb 11.0 L (14.0-18.0) g/dL Hct 32.8 L (42-52) % Plt Count 167 (130-400) K/uL BMP 05/30/18 05:38 Sodium 137 Potassium 4.4 D Chloride 105 Carbon Dioxide 27 BUN 11 Creatinine 0.87 Glucose 109 H Calcium 7.9 L Urine 05/29/18 Range/Units 16:00 Urine Color Yellow Urine Appearance Clear (Clear) Urine pH 8.0 H (4.5-7.5) Ur Specific [place] 1.014 (1.000-1.030) Urine Protein Negative (Negative) Urine Glucose (UA) Negative (Negative)
[2018-05-30] MEDS: CARBAMAZEPINE 200 MG PO SCH ×2 (11:06→22:49)
--- NOTE | 2018-05-30 12:17 | Orthopedic Progress Note ---
Date of Service May 30, 2018 Assessment & Plan (1) Status post lumbar surgery: At this time we will continue physical therapy monitor his KEERTHI output and possible discharge home tomorrow. Present on Admission?: Yes Subjective Back pain is controlled leg symptoms improved Physical Exam Vital Signs (Past 24 Hours): Last Vital Signs Temp 36.5 C 05/30/18 07:08 Pulse 77 05/30/18 07:08 Resp 19 05/30/18 07:08 BP 141/72 H 05/30/18 07:08 Pulse Ox 99 05/30/18 10:00 Physical Exam: Patient is ambulating halls with a walker. He is comfortable. Is good strength testing.
[2018-05-30] MEDS ORDERED: Nursing to Pharmacy Communication ONE (18:16)
[2018-05-30] MEDS: lamoTRIgine 100 MG TAB PO SCH (20:02)
[2018-05-30] MEDS: ATORVASTATIN 40 MG TAB PO SCH (22:48)
[2018-05-30] MEDS: DOCUSATE SODIUM/SENNA 50/8.6MG TAB PO SCH (22:49)
[2018-05-31] MEDS: ONDANSETRON INJ 2 MG/ML 2 ML VIAL IV PRN (03:33)
[2018-05-31 06:12] LABS: Hematocrit (blood only) 32.2 % (42-52); Mean Corpuscular Hgb Conc 34.2 g/dL (32-36); Mean Corpuscular Volume 92.8 fL (80-100); Mean Platelet Volume 9.1 fL (7.4-10.4); Platelet Count 177 K/uL (130-400); RDW Coefficient of Variation 12.1 % (11.5-14.5); RDW Standard Deviation 41.1 fL (36.4-46.3); Red Blood Count 3.47 M/uL (4.7-6.1)
[2018-05-31 06:45] LABS: BUN Creatinine Ratio 10.4 (10-20); Calcium 8.1 mg/dl (8.5-10.1); Est GFR (African American) 102.4; Est GFR (Non-African American) 88.4; Potassium 4.2 mmol/L (3.5-5.1)
[2018-05-31] MEDS: ACETAMINOPHEN 500 MG TAB PO PRN (06:49)
--- NOTE | 2018-05-31 07:55 | Discharge Summary ---
Date of Service May 31, 2018 Admission HPI Per Admitting Provider This is a 57-year-old male that presents with chronic persistent back and leg pain. After failing extensive course of nonoperative care is here for surgical intervention. Principal Diagnosis Lumbar spinal stenosis with neurogenic claudication Discharge Data Allergies Allergy/AdvReac Type Severity Reaction Status Date / Time iv contrast AdvReac Intermediate SEE NOTES Uncoded 05/28/18 06:12 Consultations 05/28/18 11:41 Consult Case Management - Discharge Planning Routine Consult Hospitalist Routine Procedures Performed Operation Date: 05/28/18 07:45 Actual Procedures p L3-S1 Decompression and Fusion, Interbody Fusion L3-L4, L4-L5; Application of Osteoamp and Bone Morphogenetic Protein(Not Applicable) - Joe Palafox DO Ordered Studies 05/28/18 07:45 FL fluoroscopy <1hr Routine FL lumbar spine 2-3V Routine Hospital Course (1) Spinal stenosis, lumbar region with neurogenic claudication: Patient underwent lumbar decompression fusion tolerated this well was taken to orthopedic floor postoperative. Postop day 1 he was having some dizziness but recovered. He tolerated physical therapy wonderfully postop day #2 and 3 KEERTHI drain decreased appropriately. Subsequently discharged home. Total Time Total Time Spent Total Time Spent (In Minutes): Not applicable Discharge Plan Discharge Items Patient Disposition: Home - Self-Care Reason For Visit: Other Spondylosis with Radiculopathy, Lumbar Regio Discharge Diagnosis: lumbar stenosis Discharge Goals: Improve function Activity: Per 'Additional Instructions' section Non-emergency contact: Primary Care Provider Call non-emergency contact if: you have any medication questions Follow-up/Referrals: Roland Cali [Primary Care Provider] - Diet: Regular Addtl Provider Instructions: ACTIVITY RECOMMENDATIONS: SELF CARE INSTRUCTIONS AFTER THORACIC/LUMBAR FUSIONS 1. You may walk to your tolerance. It is good exercise for your legs and back. Expect some back and intermittent leg aches and pains. 2. You may perform "counter-top" level activities (make a sandwich, missy with a project, etc.). 3. No bending or lifting of more than 10 pounds or back twisting of any nature (roll like a log when turning in bed). 4. You may ride in a car for 20-30 minutes at a time. No driving until after your first visit with your doctor. 5. Frequent changes of position and restricting sitting to 30 minutes at a time will help limit the amount of back spasms and stiffness you may experience. 6. You may discontinue the use of ambulatory aids (cane, crutches, etc.) once your strength and confidence allow. 7. You may medical review coordinator the shower and let water strike your incision when you arrive home at least once daily. Do not take a tub bath, sit in a hot tub or go into a swimming pool until after your first recheck in the office. SPECIAL CARE INSTRUCTIONS: VERY IMPORTANT TO READ AND REVIEW A. Your surgical incision has been closed with a cosmetic suture under the skin that will dissolve in about 6 weeks. In 14 days, you can use a pair of clean scissors and cut the suture that is left outside of the skin at the ends of your incision. 1. The small skin tapes can be removed 7 days after surgery if they have not fallen off by that point. 2. You may keep the wound open to air as much as possible to promote healing after post-op day number 5 unless told otherwise by your doctor. 3. If you think the wound looks like it is becoming infected (redness or worsening drainage) and/or you are experiencing fever, chill or worsening back pain and muscle spasms, contact the office so that we may evaluate you as soon as possible. B. Complications are uncommon, but please contact us if you have any signs or symptoms of: 1. wound infection (fever higher than 102.5 degrees F, redness, separation of wound, drainage, or increasing pain from the incision) 2. blood clots in legs (pain, swelling, redness and warmth in legs) 3. urinary tract infection (fever higher than 102.5 degrees F, burning upon urination or increased frequency of urination) 4. nerve problems (inability to walk on your toes or heels, numbness, loss of bowel or bladder control) 5. any other symptoms that concern you C. Please call the office at if you have any concerns or questions about your operation or recovery. D. No smoking! Smoking drastically decreases the chance of a solid fusion. E. Do not take any anti-inflammatory medications (Indocin, Advil, Motrin, Aspirin, Naprosyn, etc.) as these may inhibit the chance of a solid fusion. Tylenol is okay to take for pain. MANAGING PAIN AFTER SPINAL SURGERY 1. Narcotic medication is intended for short-term use and will be provided for surgical pain. Surgical pain usually lasts for a period of 4-6 weeks. Narcotic medication includes Percocet, Vicodin, Darvocet, Tylenol #3 or Lortab. 2. Longer-term pain is more appropriately treated with non-narcotic medication such as Tylenol ES. 3. Muscle spasm is not appropriately treated with narcotics. Muscle relaxers such as Soma, Flexeril or Skelaxin can be used along with Tylenol ES. 4. Remember that we all live with some "aches and pains". This is not unusual or uncommon after an injury or as we get older. a. Back pain is expected and may include muscle spasms for 4 to 6 weeks after surgery. The pain should gradually improve. If the pain worsens for no apparent reason, please contact the office. b. Intermittent leg pain may also be experienced and should not be concerned about unless it worsens for no apparent reason. If so, please contact the office. 5. We will provide appropriate medication within the normal guidelines of their prescribed use. We will also be very cautious and aware of potential abuse and extended duration of patients' medication needs. a. Pain medications are for your comfort and to assist with sleep and rest so that the tissue can heal. They are not provided in order to return to normal activity and should not be used through the day. To do so or worsening pain at night can result from ongoing tissue damage and development of tolerance to the prescribed medicine. 6. Please allow 2-3 days to process refills. Prescriptions will not be mailed but must be picked up at the office. FOLLOW UP VISIT: Keep your scheduled follow-up appointment. Any questions, please call the office at . Prescriptions: New oxycodone 5 mg Tablet 5 mg PO Q4H PRN (Reason: Pain) Qty: 30 RF: 0 Continued carvedilol 3.125 mg Tablet 3.125 mg PO BID RF: 0 ramipril 2.5 mg Capsule 2.5 mg PO BID RF: 0 multivitamin [Multiple Vitamins] Tablet 1 tab PO DAILY RF: 0 atorvastatin 40 mg Tablet 40 mg PO HS RF: 0 clopidogrel 75 mg Tablet 75 mg PO HS RF: 0 aspirin [Aspir-81] 81 mg Tablet,Delayed Release (Dr/Ec) 81 mg PO DAILY RF: 0 carbamazepine [Tegretol XR] 200 mg Tablet Extended Release 12 Hr 600 mg PO DAILY RF: 0 carbamazepine [Tegretol XR] 200 mg Tablet Extended Release 12 Hr 400 mg PO PM RF: 0 No Action lamotrigine [Lamictal XR] 300 mg Tablet Extended Release 24hr 300 mg PO DAILY RF: 0 Stand-Alone Forms: [facility] Discharge Orders: Discharge Order (Routine); Ordered 05/31/18 Ordered By: Joe aPlafox Admission Data Admit Date/Time: 05/28/18 10:33 Attending Provider: Joe Palafox Admit Provider: Joe Palafox Primary Care Provider: Roland Cali. Other Providers: Denis Cota ; Redd Bowman Service: Surgical Services
[2018-05-31] MEDS: MULTIVITAMIN TAB PO SCH (09:33)
[2018-05-31] MEDS: CARVEDILOL 3.125 MG TAB PO SCH (09:33)
[2018-05-31] MEDS: ASPIRIN 81 MG ECTAB PO SCH (09:33)
[2018-05-31] MEDS: CARBAMAZEPINE 200 MG PO SCH (09:33)
== END 2018-05-31 12:27 | disposition home or self-care (01) | DRG 454 ==
LOC: ASU 05:49 → 3E 10:33
DX: M47.26 Other spondylosis with radiculopathy, lumbar region; Z68.30 Body mass index [BMI] 30.0-30.9, adult; D62 Acute posthemorrhagic anemia; K21.9 Gastro-esophageal reflux disease without esophagitis; M48.062 Spinal stenosis, lumbar region with neurogenic claudication; Z95.5 Presence of coronary angioplasty implant and graft; M41.9 Scoliosis, unspecified; Z79.82 Long term (current) use of aspirin; Z88.8 Allergy status to other drugs, medicaments and biological substances; I25.10 Atherosclerotic heart disease of native coronary artery without angina pectoris; I25.2 Old myocardial infarction; E66.9 Obesity, unspecified; Z79.02 Long term (current) use of antithrombotics/antiplatelets; G40.909 Epilepsy, unspecified, not intractable, without status epilepticus

== ENCOUNTER 2022-01-25 06:07 | Inpatient (IN) ==
--- NOTE | 2021-12-24 10:44 | PAT Medication Instructions ---
Medication Instructions Date of Service December 24, 2021 Home Medications Medication Instructions Recorded oxycodone 5 mg tablet 5 mg PO Q4H PRN Pain #30 tabs 05/28/18 aspirin 81 mg tablet,delayed release (Aspir-) 81 mg PO QAM atorvastatin 40 mg tablet 40 mg PO HS carvedilol 3.125 mg tablet 3.125 mg PO BID clopidogrel 75 mg tablet 75 mg PO QAM multivitamin (Multiple Vitamins tablet) 1 tab PO QAM ramipril 2.5 mg capsule 2.5 mg PO BID oxycodone 5 mg tablet 5 mg PO Q4H PRN Pain lamotrigine 300 mg tablet,extended release 24 hr (Lamictal XR) 300 mg PO HS carbamazepine 200 mg tablet,extended release,12 hr (Tegretol XR) 200 mg PO UD cyanocobalamin (vitamin B-12) 1,000 mcg capsule 1,000 mcg PO QAM ASK your prescriber and surgeon aspirin 81 mg tablet,delayed release (Aspir-) 81 mg PO QAM clopidogrel 75 mg tablet 75 mg PO QAM DO NOT take the morning of surgery multivitamin (Multiple Vitamins tablet) 1 tab PO QAM ramipril 2.5 mg capsule 2.5 mg PO BID cyanocobalamin (vitamin B-12) 1,000 mcg capsule 1,000 mcg PO QAM Take morning of surgery With a small sip of water, OTHERWISE NOTHING TO EAT OR DRINK AFTER MIDNIGHT: carvedilol 3.125 mg tablet 3.125 mg PO BID oxycodone 5 mg tablet 5 mg PO Q4H PRN Pain (if needed) carbamazepine 200 mg tablet,extended release,12 hr (Tegretol XR) 200 mg PO UD Take evening before surgery atorvastatin 40 mg tablet 40 mg PO HS carvedilol 3.125 mg tablet 3.125 mg PO BID ramipril 2.5 mg capsule 2.5 mg PO BID oxycodone 5 mg tablet 5 mg PO Q4H PRN Pain (if needed) lamotrigine 300 mg tablet,extended release 24 hr (Lamictal XR) 300 mg PO HS carbamazepine 200 mg tablet,extended release,12 hr (Tegretol XR) 200 mg PO UD Other Notes If you have any questions please call us at [phone] or [phone] or [phone] or [phone]
--- NOTE | 2021-12-30 09:45 | Anesthesiology Consultation ---
Date of Service December 30, 2021 Assessment & Plan (1) Encounter for pre-operative examination: - COVID screening: Per assessment on 12/30: No known COVID-19 positive contacts or current COVID-19 related symptoms. Travel screen negative. Patient vaccinated. At surgeon discretion if preop Covid testing being done. - S/P L3-S1 decompression/fusion (05/28/18): Grade 1 view, MAC#3, ETT 8.0 at [facility]. No issues noted per post-op anesthesia progress note. - ASA/plavix instructions: per surgeon/cardio - Pt scheduled to see cardiology prior to surgery. Awaiting cardiology office visit note ([facility], scheduled 01/05). Chart Review Chart Review: Patient seen in Pre Admission Testing Teaching & Discussion Pre-Anesthesia Teaching/Discussion Notes: Instructed NPO after midnight before surgery,except medications with 15 cc of water. Medication instructions provided according to the PAT guidelines. History Surgery Operation Date: 01/25/22 07:45 Proposed Procedures p L2-L3 Decompression and Fusion with Hardware Revision L3-L5, L3-S1 Hardware Removal, Spinal Cord Monitoring - Joe Palafox DO Height/Weight Height: 5 ft 11 in Weight: 95.8 kg Allergies Allergy/AdvReac Type Severity Reaction Status Date / Time Iodinated Contrast Media Allergy Severe SEE NOTES Verified 12/24/21 08:57 Medications Home Medications Medication Instructions Recorded Confirmed Last Taken aspirin 81 mg tablet,delayed 81 mg PO QAM 05/02/18 12/24/21 05/28/18 05:45 release (Aspir-) atorvastatin 40 mg tablet 40 mg PO HS 05/02/18 12/24/21 05/27/18 20:30 carvedilol 3.125 mg tablet 3.125 mg PO BID 05/02/18 12/24/21 05/27/18 20:30 clopidogrel 75 mg tablet 75 mg PO QAM 05/02/18 12/24/21 05/21/18 10:00 multivitamin (Multiple Vitamins 1 tab PO QAM 05/02/18 12/24/21 05/21/18 10:00 tablet) ramipril 2.5 mg capsule 2.5 mg PO BID 05/02/18 12/24/21 05/27/18 10:00 oxycodone 5 mg tablet 5 mg PO Q4H PRN Pain #30 tabs 05/28/18 12/24/21 Unknown lamotrigine 300 mg tablet,extended 300 mg PO HS 05/30/18 12/24/21 Unknown release 24 hr (Lamictal XR) carbamazepine 200 mg 200 mg PO UD 12/24/21 12/24/21 Unknown tablet,extended release,12 hr (Tegretol XR) cyanocobalamin (vitamin B-12) 1,000 mcg PO QAM 12/24/21 12/24/21 Unknown 1,000 mcg capsule Past Medical History Medical History Acid reflux 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 Ortiz/[facility] Degenerative disc disease Grand mal seizure disorder Pt unaware of when episodes occur as they happen when sleeping (no recent known episode) Follows with Dr. Cobian Myocardial Infarction 2014 Scoliosis Exercise / Class Metabolic Activity II 4-5 Yardwork/Stairs/Walk up hill Past Family History Family History Father Family history of lung cancer Other Aortic aneurysm Coronary heart disease No family history of adverse response to anesthesia Past Surgical History Surgical History Fusion of spine L3-S1 decompression/fusion (05/28/18): Grade 1 view, MAC#3, ETT 8.0 at [facility]. No issues noted per post-op anesthesia progress note. H/O inguinal hernia repair H/O sinus surgery H/O umbilical hernia repair History of appendectomy History of colonoscopy History of foot surgery RT/LEFT CYST REMOVED History of heart artery stent 2014 (stents x2) Past Anesthesia History No Hx of Anesthesia Complications and No Family Hx of Anesthesia Complications History of PONV No Hx of PONV and No Hx of Motion Sickness Social History Smoking Status: Never smoker Do You Dip or Chew Tobacco: No Hx Alcohol Use: No Hx Substance Use: No substance use type: does not use Review of Systems Patient denies chest pain, shortness of breath, dyspnea on exertion, fever, ch ills, cough, wheezing, palpitations. Physical Exam Vital Signs VITALS BP 114/73 P 72 TEMP 98.1 SP02 99%RA RESP 20 PHYSICAL Mildly decreased cervical extension range of motion. Full TMJ range of motion. TMD 3.5 finger breaths Mallampati Score 3 Dentition: partial lower ("cemented in") Lungs: clear throughout to auscultation Cardiac: regular rate and rhythm, no murmurs noted Spine: normal Carotid arteries: negative bruit Extremities: no edema Lab Results Anesthesia Preop Results Results Anesthesia Widget: WBC 5.79 K/ul (4.8-10.8) 12/30/21 Hgb 14.3 g/dl (14.0-18.0) 12/30/21 Hct 41.0 % (40.1-51.0) 12/30/21 Plt 249 K/uL (130-400) 12/30/21 Na 132 mmol/L (136-145) L 12/30/21 K 4.2 mmol/L (3.5-5.1) 12/30/21 Cl 100 mmol/L (98-107) 12/30/21 CO2 28 mmol/L (21-32) 12/30/21 BUN 10 mg/dl (6-23) 12/30/21 Creat 0.82 mg/dl (0.6-1.4) 12/30/21 Glucose Level 102 mg/dl (70-99(Fasting)) H 12/30/21 PT 10.8 Seconds (9.0-12.0) 12/30/21 PTT 27.2 Seconds (21.0-31.0) 12/30/21 INR 1.0 (0.9-1.1) 12/30/21 Urine Color Yellow 12/30/21 Urine Appearance Clear (Clear) 12/30/21 Urine pH 6.0 (4.5-7.5) 12/30/21 Urine Specific [place] 1.021 (1.000-1.030) 12/30/21 Urine Protein Negative (Negative) 12/30/21 Urine Glucose (UA) Negative (Negative) 12/30/21 Urine Ketones Negative (Negative) 12/30/21 Urine Blood Negative (Negative) 12/30/21 Urine Nitrite Negative (Negative) 12/30/21 Urine Bilirubin Negative (Negative) 12/30/21 Urine Urobilinogen Negative (Negative) 12/30/21 Urine Leukocyte Esterase Negative (Negative) 12/30/21 Blood Type B Positive 12/30/21 Antibody Screen NEGATIVE 12/30/21 Testing Electrocardiogram Date: 12/30/21 Findings: + NSR @ (68) Chest X-Ray Date: 12/30/21 FINDINGS: Cardiomediastinal and hilar silhouettes are within normal limits. No pneumothorax, pleural effusion, airspace consolidation or overt pulmonary edema. Minimal linear scarring versus atelectasis of the left lung base. 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 Thoracic dextroscoliosis of approximately 50 degrees. Partially imaged lumbar spinal fusion hardware. IMPRESSION: No acute process. Echocardiogram Date: 11/21/19 EF 60%. No significant valvular disease. COVID-19 Risk Screen Screening Information COVID-19 Screen Date: 12/30/21 Exposure 21 Days Family/Household +COVID Last 21 Days: No Exposure 10 Days Any COVID Exposure Last 10 Days: No Symptoms Last 10 Days Experienced COVID Sx Last 10 Days: No + COVID 0-90 Days COVID + in Last 0-90 Days: No
[~2022-01-25 06:07] MED LIST: ACETAMINOPHEN 500 MG TAB PO SCH; CeleBREX 200 MG CAP PO SCH; GABAPENTIN 600 MG DOSE PO SCH; LR 15ML/HR IV SCH; ceFAZolin 2000MG 2,000 MG/15 ML SYR IV SCH
[2022-01-25] MEDS ORDERED: ceFAZolin 330 MG/ML 1 GM VIAL ONE (07:05)
[2022-01-25] MEDS ORDERED: BUPIVACAINE/EPINEPHRINE 0.25% 1:200,000 30 ML VIAL ONE (07:05)
[2022-01-25] MEDS ORDERED: ROCURONIUM BROMIDE 10 MG/ML 5 ML VIAL IV ONE (07:18)
[2022-01-25] MEDS ORDERED: DEXAMETHASONE SOD INJ 4 MG/ML VIAL ONE (07:18)
[2022-01-25] MEDS ORDERED: NEOSTIGMINE METHYLSULFATE 1 MG/ML 10ML VIAL ONE (07:18)
[2022-01-25] MEDS ORDERED: MIDAZOLAM HCL 1 MG/ML 2ML VIAL ONE (07:18)
[2022-01-25] MEDS ORDERED: ePHEDrine sulfate 50 MG/ML SYR ONE (07:18)
[2022-01-25] MEDS ORDERED: LIDOCAINE 2% MPF LOCAL 5 ML VIAL INFIL ONE (07:18)
[2022-01-25] MEDS ORDERED: GLYCOPYRROLATE 0.2 MG/ML VIAL ONE (07:18)
[2022-01-25] MEDS ORDERED: fentaNYL citrate 100 MCG/2 ML VIAL ONE (07:18)
[2022-01-25] MEDS ORDERED: PHENYLEPHRINE 100MCG/ML 5ML SYR ONE (07:18)
[2022-01-25] MEDS ORDERED: PROPOFOL IV EMULSION 10 MG/ML 20 ML VIAL IV ONE (07:18)
[2022-01-25] MEDS ORDERED: LARYING-O-JET KIT (LTA) ONE (07:18)
[2022-01-25] MEDS ORDERED: ONDANSETRON INJ 2 MG/ML 2 ML VIAL ONE (07:18)
--- NOTE | 2022-01-25 07:27 | History & Physical Bridge Note ---
Date of Service January 25, 2022 History & Physical Bridge Note I have examined the patient, reviewed the History & Physical and in the interval since the performance of the History & Physical I have noted the following changes of clinical significance: no changes noted
--- NOTE | 2022-01-25 07:28 | History & Physical Report ---
Date of Service January 25, 2022 Assessment & Plan (1) Spinal stenosis, lumbar region with neurogenic claudication: Plan: L2-L3 decompression fusion with hardware revision L3-L5, L3-S1 hardware removal History of Present Illness Chief Complaint: Back and bilateral leg pain Primary Care Provider: Roland Cali MD This is a 61-year-old male who presents with chronic persistent back and leg pain after failing course of nonoperative care is here for surgical invention. Allergies Allergy/AdvReac Type Severity Reaction Status Date / Time Iodinated Contrast Media Allergy Severe SEE NOTES Verified 01/25/22 06:37 Home Medications Medication Instructions Recorded Confirmed Type aspirin 81 mg tablet,delayed 81 mg PO QAM 05/02/18 01/25/22 History release (Aspir-) atorvastatin 40 mg tablet 40 mg PO HS 05/02/18 01/25/22 History carvedilol 3.125 mg tablet (Coreg) 3.125 mg PO BID 05/02/18 01/25/22 History clopidogrel 75 mg tablet 75 mg PO QAM 05/02/18 01/25/22 History multivitamin (Multiple Vitamins 1 tab PO QAM 05/02/18 01/25/22 History tablet) ramipril 2.5 mg capsule (Altace) 2.5 mg PO BID 05/02/18 01/25/22 History oxycodone 5 mg tablet 5 mg PO Q4H PRN Pain #30 tabs 05/28/18 01/25/22 Rx lamotrigine 300 mg tablet,extended 300 mg PO HS 05/30/18 01/25/22 History release 24 hr (Lamictal XR) carbamazepine 200 mg 400 mg PO BID 12/24/21 01/25/22 History tablet,extended release,12 hr (Tegretol XR) cyanocobalamin (vitamin B-12) 1,000 mcg PO QAM 12/24/21 01/25/22 History 1,000 mcg capsule Past Med/Surg History Medical History Acid reflux 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 Ortiz/LI[facility] Degenerative disc disease Grand mal seizure disorder Pt unaware of when episodes occur as they happen when sleeping (no recent known episode) Follows with Dr. Cobian Myocardial Infarction 2015 Scoliosis Surgical History Fusion of spine L3-S1 decompression/fusion (05/28/18): Grade 1 view, MAC#3, ETT 8.0 at [facility]. No issues noted per post-op anesthesia progress note. 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
[2022-01-25] MEDS ORDERED: HYDROmorphone INJ 1 MG/ML SYRINGE IV PRN ×2 (07:43→11:54)
[2022-01-25] MEDS ORDERED: ONDANSETRON INJ 2 MG/ML 2 ML VIAL IV PRN ×2 (07:43→11:54)
[2022-01-25] MEDS ORDERED: fentaNYL citrate 100 MCG/2 ML VIAL IV PRN (07:43)
[2022-01-25] MEDS ORDERED: ATROPINE SULFATE 0.1 MG/ML 10ML SYR IV PRN (07:43)
[2022-01-25] MEDS ORDERED: ePHEDrine sulfate 50 MG/ML AMP IV PRN (07:43)
[2022-01-25] MEDS ORDERED: HYDROmorphone INJ 2 MG/ML SYR/VIAL ONE (08:09)
[2022-01-25] MEDS ORDERED: FLOSEAL HEMOSTATIC MATRIX 10ML TOP ONE (08:19)
--- NOTE | 2022-01-25 10:05 | Operative Report ---
Post Operative Report Pre & Post Diagnosis Operation Date: 01/25/22 07:45 Pre-Op Diagnosis: Lumbar spinal stenosis with neurogenic claudication Post-Op Diagnosis: same I identified the patient and participated in the time-out.: Yes Procedure Operation Date: 01/25/22 07:45 Actual Procedures 1. Removal of posterior segmental instrumentation L3-S1. #2 exploration of fusion L3-S1. #3 lumbar decompression bilateral medial facetectomies and foraminotomies L1-L2 L2-L3. #4 posterior spinal fusion L2-L3 per #5 placement posterior instrumentation L2-S1. #6 interbody fusion L2-L3. #7 placement of Spira 9 x 26 mm cage at L2-L3. #8 placement locally harvested morselized autograft in the posterior gutters. #9 placement of I factor model V toss inte rbody space and posterior gutters. Surgeon Joe Palafox, DO Training And Documentation Specialist Amna Vargas Estimated Blood Loss 600 Findings See Below Patient did have excessive EBL throughout the procedure creating significant technical difficulty with visualization performing decompression. This at least 50% increased operative time. Specimens none Indications This is a 61-year-old male who presents above-mentioned diagnosis after failed course of nonoperative care is here for surgical intervention. Description of Procedure Patient was met with identified informed consent obtained. Patient was then taken to the operative suite underwent an patient placed in a prone position the Jex table top Lino frame. All bony prominences well-padded eyes inspected to ensure no external pressure placed upon the. This point the lumbar spine was prepped and draped in a sterile fashion. Sharp dissection with the assistance of bradycardia from down to and exposing the lamina transverse processes of L2 and instrumentation at L3-L4-L5 and the S1 levels bilaterally. And then proceeded move the hardware bilaterally explore the fusion mass noting it to be mature and intact. Informed complete laminectomy of L2 partial laminectomy L1 including bilateral medial facetectomies and foraminotomies addressing severe spinal stenosis particular neuroforaminal disease at L2-L3 on the right. After complete decompression pedicle screw placed in L2-L3 and S1 bilaterally with assistance of fluoroscopy and appropriate sized madison placed. By way of transforaminal approach and right complete discectomy of L2-L3 was performed endplates curetted to subcortically bone and a 9 x 26 mm spiral cage with I factor tapped in position. I did place a small bit of DuraGen over sections of the dura that were quite thin secondary to bony ingrowth. This was done prophylactically. Transverse processes of L2 and L3 were then burred to s ubcortical and bone. I factor model V toss and locally harvested morselized autograft was placed in the posterior gutters. 15 round KEERTHI drain inserted. The incision was then closed with 1 Vicryl the fascia 2-0 Vicryl subcutaneously and 4 Monocryl for final skin closure. Steri-Strips dressings placed. Patient waken taken to PACU in stable condition. Please note Amna Vargas was present out the entire procedure involved in patient positioning complex portions of the surgery and final skin closure. I attest to the content of the Intraoperative Record and any orders documented therein. Any exceptions are noted below.
--- NOTE | 2022-01-25 11:14 | Fluoroscopy Report ---
FL lumbar spine 2-3V HISTORY: 61 years-old Male L2-L3 D/F, HARDWARE REVISION L3-L5, HARDWARE REMOVAL COMPARISON: Lumbar spine MRI 11/26/2021 TECHNIQUE: 2 spot fluoroscopic images of the lumbar spine were obtained utilizing 13.4 seconds fluoro scopy time FINDINGS: Posterior interbody madison and screw fusion hardware of the lumbar spine is partially imaged. Multilevel discectomy changes are noted along with spondylitic spurring. Exact numbering of the lumbar spine is limited secondary to magnification of the images. There is suggestion of a radiopaque sponge within the operative bed soft tissues posteriorly. Images were interpreted following completion of the surgery. IMPRESSION: Fluoroscopic assistance as above. ACT 112: Negative or not required by law. The above report was generated using voice recognition software. It may contain grammatical, syntax o r spelling errors. Electronically signed by: Holland Sorensen M.D. 01/25/2022 11:13 AM
--- NOTE | 2022-01-25 11:30 | Anesthesiology Progress Note ---
Date of Service January 25, 2022 Anesthesia Post Procedure Vital Signs Vital Signs: Temp Pulse Resp BP BP Pulse Ox O2 Del Method 01/25/22 11:25 36.1 C L 74 14 116/76 96 Nasal Cannula 01/25/22 11:15 72 12 122/81 97 Nasal Cannula 01/25/22 11:05 72 13 93/71 L 91 Room Air 01/25/22 10:55 73 13 131/83 93 Room Air 01/25/22 10:45 77 12 123/84 100 Oxymask 01/25/22 10:35 74 16 131/81 100 Oxymask 01/25/22 10:25 73 14 123/87 100 Oxymask 01/25/22 10:18 36.6 C 77 14 132/75 99 Oxymask 01/25/22 06:45 36.8 C 78 22 151/94 H 98 Room Air O2 Flow Rate 01/25/22 11:25 2 01/25/22 11:15 2 01/25/22 11:05 01/25/22 10:55 01/25/22 10:45 6 01/25/22 10:35 6 01/25/22 10:25 6 01/25/22 10:18 15 01/25/22 06:45 Pain Intensity Back: Pain Intensity: 2 Transfer of Care Handoff Completed per policy Notes Mental Status: alert / awake / arousable and participated in evaluation Patient Amnestic to Procedure: Yes Nausea / Vomiting: adequately controlled Pain: adequately controlled Airway Patency, RR, SpO2: stable & adequate BP & HR: stable & adequate Hydration State: stable & adequate Anesthetic Complications: no major complications apparent and Pt Satisfied with anesthetic care
[2022-01-25] MEDS ORDERED: traMADol HCL 50 MG TABLET PO PRN (11:54)
[2022-01-25] MEDS ORDERED: NALOXONE HCL 0.4 MG/1 ML VIAL/CARP IV PRN (11:54)
[2022-01-25] MEDS ORDERED: hydrOXYzine HCl 25 MG TAB PO PRN (11:54)
[2022-01-25] MEDS ORDERED: LORazepam 0.5 MG in SYRINGE 0 ML IV PRN (11:54)
[2022-01-25] MEDS ORDERED: FAMOTIDINE 20 MG TAB PO PRN (11:54)
[2022-01-25] MEDS ORDERED: ACETAMINOPHEN 1,000 MG/100 ML VIAL IV PRN (11:54)
[2022-01-25] MEDS ORDERED: PROMETHAZINE HCL 12.5 MG in SODIUM CHLORIDE 0.9% 50 ML IV PRN (11:54)
[2022-01-25] MEDS ORDERED: diphenhydrAMINE Capsule 25 MG CAP PO PRN (11:54)
[2022-01-25] MEDS ORDERED: ALUMINUM/MAGNESIUM SUSP 30 ML UDC PO PRN (11:54)
[2022-01-25] MEDS ORDERED: bisacodyL 10 MG SUPP PR PRN (11:54)
[2022-01-25] MEDS ORDERED: MAGNESIUM HYDROXIDE SUSP 30 ML UDC PO PRN (11:54)
[2022-01-25] MEDS ORDERED: SOD PHOSPHATE/SOD BIPHOSPHATE ENEMA 132 ML BTL PR PRN (11:54)
[2022-01-25] MEDS ORDERED: HYDROmorphone INJ 0.5 MG/0.5 ML SYR IV PRN (11:54)
[2022-01-25] MEDS ORDERED: LORazepam 0.5 MG TAB PO PRN (11:54)
[2022-01-25] MEDS ORDERED: METOCLOPRAMIDE HCL INJ 5 MG/ML 2 ML VIAL IV PRN (11:54)
[2022-01-25] MEDS ORDERED: ACETAMINOPHEN 500 MG TAB PO PRN (11:54)
[2022-01-25] MEDS ORDERED: ONDANSETRON 4 MG OD TAB PO PRN (11:54)
[2022-01-25] MEDS: LACTATED RINGER'S 1,000 ML IV SCH ×2 (16:17→23:42)
[2022-01-25] MEDS: ceFAZolin 2000MG 2,000 MG/15 ML SYR IV SCH ×2 (18:02→23:34)
--- NOTE | 2022-01-25 18:16 | Hospitalist Consultation ---
Date of Consultation January 25, 2022 Assessment & Plan (1) Spinal stenosis, lumbar region with neurogenic claudication: POD#0 L2-L3 decompression fusion with hardware revision L3-L5, L3-S1 hardware removal. Dural thinning noted on operative report with placement of DuraGen over sections of the dura that were quite thin secondary to bony ingrowth. Activity and wound care orders as per ortho Pain control with bowel regimen PT/OT Monitor H/H for acute blood loss anemia and transfuse blood products PRN EBL 600 cc (2) CAD (coronary artery disease): Appears stable, no reports chest pain History of STEMI s/p stenting to RCA and right PDA in 2014 Preop stress test negative for ischemia, EF 64% Continue ASA, statin, beta-alexis, ramipril; resume Plavix at the discretion of spine Ortho (3) Seizure disorder: Continue carbamazepine and lamotrigine -- patient reports he must take his own home medications (4) DVT prophylaxis: TEDs/SCDs as per spine Ortho Thank you for this consultation. We will follow the patient with you during their hospital stay. You can reach a member of the [facility] Hospitalist Team 19/09 via the [facility] Hospitalist role in [place] Text. Supervising Physician Co-Signing Physician Notes Patient seen and examined Reports only surgical site soreness Denied any other complaints at this time On exam, General: Well hydrated, no acute distress Eyes: PERRL, conjunctivae normal, not pale, anicteric sclerae, EOM intact bilaterally ENMT: External ear and nose normal, oropharynx normal Respiratory: Normal respiratory effort, no respiratory distress, lungs clear to auscultation, no crackles and no wheezes Cardiovascular: RRR S1 S2 Gastrointestinal (Abdomen): Soft, not distended, non-tender to palpation, no guarding, no palpable hepatosplenomegaly, normal bowel sounds Musculoskeletal: No pedal edema. Neurologic: Alert and oriented x 3, No focal weakness, sensation grossly intact Pain control, activity per Primary Surgeon Check CBC and BMP tomorrow Follow up with Surgeon about when it is safe to resume plavix Continue home ASA, atorvastatin Continue home tegretol and lamictal Informed his RN to have his BP checked before time for his antihypertensives tonight. Other plans as detailed by Gavi HARDEN History of Present Illness Reason for Consultation: Postop medical management Requesting Physician: Dr. Palafox Attending Physician: Joe Palafox, DO History of Present Illness 61-year-old male with PMH CAD s/p STEMI and stent to RCA and right PDA in 2014, history of seizure disorder, and other problems listed below who is s/p L2-L3 decompression fusion with hardware revision L3-L5, L3-S1 hardware removal today by Dr. Palafox. Postoperatively, the patient is doing well. He reports his pain is well controlled. No numbness or tingling or weakness to lower extremities. Denies chest pain or shortness of breath. No lightheadedness or dizziness. Denies abdominal pain and nausea. Tao catheter in place draining clear yellow urine. Allergies Allergy/AdvReac Type Severity Reaction Status Date / Time Iodinated Contrast Media Allergy Severe SEE NOTES Verified 01/25/22 06:37 Home Medications Medication Instructions Recorded Confirmed Type aspirin 81 mg tablet,delayed 81 mg PO QAM 05/02/18 01/25/22 History release (Aspir-) atorvastatin 40 mg tablet 40 mg PO HS 05/02/18 01/25/22 History carvedilol 3.125 mg tablet (Coreg) 3.125 mg PO BID 05/02/18 01/25/22 History clopidogrel 75 mg tablet 75 mg PO QAM 05/02/18 01/25/22 History multivitamin (Multiple Vitamins 1 tab PO QAM 05/02/18 01/25/22 History tablet) ramipril 2.5 mg capsule (Altace) 2.5 mg PO BID 05/02/18 01/25/22 History oxycodone 5 mg tablet 5 mg PO Q4H PRN Pain #30 tabs 05/28/18 01/25/22 Rx lamotrigine 300 mg tablet,extended 300 mg PO HS 05/30/18 01/25/22 History release 24 hr (Lamictal XR) carbamazepine 200 mg 400 mg PO BID 12/24/21 01/25/22 History tablet,extended release,12 hr (Tegretol XR) cyanocobalamin (vitamin B-12) 1,000 mcg PO QAM 12/24/21 01/25/22 History 1,000 mcg capsule Patient History Medical History Acid reflux 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 Ortiz/LIOR Degenerative disc disease Grand mal seizure disorder Pt unaware of when episodes occur as they happen when sleeping (no recent known episode) Follows with Dr. Cobian Myocardial Infarction 2014 Scoliosis Surgical History Fusion of spine L3-S1 decompression/fusion (05/28/18): Grade 1 view, MAC#3, ETT 8.0 at [facility]. No issues noted per post-op anesthesia progress note. H/O inguinal hernia repair H/O sinus surgery H/O umbilical hernia repair History of appendectomy History of colonoscopy History of foot surgery RT/LEFT CYST REMOVED History of heart artery stent 2014 (stents x2) Family History Father Family history of lung cancer Other Aortic aneurysm Coronary heart disease No family history of adverse response to anesthesia Social History Smoking Status: Never smoker Second Hand Exposure: Yes ( A CHILD); Do You Dip or Chew Tobacco: No; Hx Alcohol Use: No Hx Substance Use: No Preferred Language: Icelandic Communication Ability: Effective Block Hacker Required: No Beliefs That Will Affect Care: None marital status: Current Living Situation: Spouse Feels Safe at Home: Yes Safety Concerns: Feels Safe At This Time Assistive Devices: None and Walker Assistive Devices Comment: BLIND IN RT EYE>READING GLASSES Review of Systems Review of Systems: ROS per HPI, all other systems reviewed and negative Physical Exam Physical Exam: please refer to Dr. Joseph's addendum for physical exam Results & Data Results & Data ([facility]) Vital Signs (Past 12 Hours) Vital Signs Temp Pulse Pulse Resp BP BP Pulse Ox 01/25/22 16:09 36.6 C 92 H 16 112/73 97 01/25/22 15:15 89 12 109/79 93 01/25/22 14:45 90 12 130/78 96 01/25/22 14:15 88 14 111/71 96 01/25/22 14:00 88 15 100/65 97 01/25/22 13:30 86 14 113/69 98 01/25/22 13:15 81 13 106/63 96 01/25/22 13:00 85 13 109/64 97 01/25/22 12:55 82 12 88/66 L 98 01/25/22 12:25 81 17 89/66 L 99 01/25/22 12:10 78 14 103/72 99 01/25/22 11:55 78 20 82/62 L 93 01/25/22 11:40 73 10 L 98/69 L 98 01/25/22 11:25 36.1 C L 74 14 116/76 96 01/25/22 11:15 72 12 122/81 97 01/25/22 11:05 72 13 93/71 L 91 01/25/22 10:55 73 13 131/83 93 01/25/22 10:45 77 12 123/84 100 01/25/22 10:35 74 16 131/81 100 01/25/22 10:25 73 14 123/87 100 01/25/22 10:18 36.6 C 77 14 132/75 99 01/25/22 06:45 36.8 C 78 22 151/94 H 98 O2 Del Method O2 Flow Rate 01/25/22 16:09 Room Air 01/25/22 15:15 Room Air 01/25/22 14:45 Room Air 01/25/22 14:15 Room Air 01/25/22 14:00 Nasal Cannula 2 01/25/22 13:30 Nasal Cannula 2 01/25/22 13:15 Nasal Cannula 2 01/25/22 13:00 Nasal Cannula 2 01/25/22 12:55 Nasal Cannula 2 01/25/22 12:25 Nasal Cannula 2 01/25/22 12:10 Nasal Cannula 2 01/25/22 11:55 Nasal Cannula 2 01/25/22 11:40 Nasal Cannula 2 01/25/22 11:25 Nasal Cannula 2 01/25/22 11:15 Nasal Cannula 2 01/25/22 11:05 Room Air 01/25/22 10:55 Room Air 01/25/22 10:45 Oxymask 6 01/25/22 10:35 Oxymask 6 01/25/22 10:25 Oxymask 6 01/25/22 10:18 Oxymask 15 01/25/22 06:45 Room Air
[2022-01-25] MEDS: ATORVASTATIN 40 MG TAB PO SCH (19:58)
[2022-01-25] MEDS: LAMOTRIGINE 300 MG PO SCH (19:59)
[2022-01-25] MEDS: carvediloL 3.125 MG TAB PO SCH (19:59)
[2022-01-25] MEDS: DOCUSATE SODIUM/SENNA 50/8.6MG TAB PO SCH (20:00)
[2022-01-25] MEDS: CARBAMAZEPINE 200 MG PO SCH (20:02)
[2022-01-25] MEDS: ENALAPRIL MALEATE 10 MG TAB PO SCH (21:00)
[2022-01-25] MEDS: oxyCODONE HCL IR 5 MG TAB (IMMEDIATE RELEASE) PO PRN (23:14)
[2022-01-26] MEDS: oxyCODONE HCL IR 5 MG TAB (IMMEDIATE RELEASE) PO PRN (03:59)
[2022-01-26] MEDS: LACTATED RINGER'S 1,000 ML IV SCH (05:37)
[2022-01-26] MEDS: POLYETHYLENE (MIRALAX) 17 GM PACK PO SCH ×3 (05:42→17:50)
[2022-01-26 08:41] LABS: Basophils # (auto) 0.03 K/uL (0-0.2); Basophils % (auto) 0.4 %; Eosinophils # (auto) 0.07 K/uL (0-0.50); Eosinophils % (auto) 0.8 %; Hemoglobin 10.5 g/dl (14.0-18.0); Immature Granulocytes # (auto) 0.04 K/uL (0.00-0.02); Immature Granulocytes % (auto) 0.5 %; Lymphocytes # (auto) 2.29 K/uL (1.2-3.4); Lymphocytes % (auto) 27.4 %; Mean Corpuscular Hemoglobin 32.3 pg (25.0-34.0); Mean Corpuscular Volume 92.3 fL (80.0-100.0); Monocytes # (auto) 1.02 K/uL (0.24-0.82); Monocytes % (auto) 12.2 %; Neutrophils # (auto) 4.92 K/uL (1.4-6.5); Neutrophils % (auto) 58.7 %; Platelet Count 174 K/uL (130-400); RDW Standard Deviation 40.8 fL (36.4-46.3); Red Blood Count 3.25 M/uL (4.63-6.08); White Blood Count 8.37 K/ul (4.8-10.8)
[2022-01-26] MEDS: dexAMETHasone 6 MG in SYRINGE 0 ML IV SCH (08:48)
[2022-01-26] MEDS: MULTIVITAMIN TAB PO SCH (08:49)
[2022-01-26] MEDS: ASPIRIN 81 MG ECTAB PO SCH (08:49)
[2022-01-26] MEDS: CYANOCOBALAMIN (B-12) 500 MCG TABLET PO SCH (08:49)
[2022-01-26] MEDS: carvediloL 3.125 MG TAB PO SCH ×2 (08:49→20:31)
[2022-01-26] MEDS: ENALAPRIL MALEATE 10 MG TAB PO SCH ×2 (08:49→20:28)
[2022-01-26] MEDS: LAMOTRIGINE 300 MG PO SCH ×2 (08:50→20:28)
[2022-01-26] MEDS: CARBAMAZEPINE 200 MG PO SCH ×2 (08:51→20:35)
[2022-01-26] MEDS ORDERED: Nursing to Pharmacy Communication SCH (09:00)
[2022-01-26] MEDS ORDERED: CARBAMAZEPINE 200 MG PO SCH (09:00)
[2022-01-26 09:03] LABS: BUN Creatinine Ratio 10.4 (10-20); Calcium 7.8 mg/dl (8.5-10.1); Creatinine Clr Calc Pharmacy 115.9 ml/min; Est GFR (African American) 111.9 ml/min; Est GFR (Non-African American) 96.6 ml/min; Potassium 4.2 mmol/L (3.5-5.1)
--- NOTE | 2022-01-26 09:17 | Orthopedic Progress Note ---
Date of Service January 26, 2022 Assessment & Plan (1) Spinal stenosis, lumbar region with neurogenic claudication: Plan: At this time we will begin bed to chair transfers. If he tolerates this we will initiate more formalized physical therapy most likely tomorrow. Admission and Anticipated Discharge Date Admission Date: January 25, 2022 Subjective Patient's back pain is controlled denies any leg pain denies any nausea vomiting or headaches. Physical Exam Physical Exam: On exam appears comfortable is constricted testing. Results & Data ([facility]) Vital Signs (Past 12 Hours) Vital Signs Temp Pulse Resp BP Pulse Ox O2 Del Method 01/26/22 07:54 36.6 C 80 17 126/70 98 Room Air 01/26/22 03:00 36.6 C 78 18 116/70 99 Room Air 01/25/22 23:00 36.8 C 86 18 115/65 99 Room Air
--- NOTE | 2022-01-26 17:22 | Hospitalist Progress Note ---
Date of Service January 26, 2022 Assessment & Plan (1) Spinal stenosis, lumbar region with neurogenic claudication: Plan: S/P L2-L3 decompression fusion with hardware revision L3-L5, L3-S1 hardware removal. Dural thinning noted on operative report with placement of DuraGen over sections of the dura that were quite thin secondary to bony ingrowth. on 01/25/22 by Postoperative acute blood loss anemia Activity, DVT Px, and wound care as per ortho Pain control Bowel regimen to prevent constipation Incentive spirometer Continue PT OT Monitor CBC No indication of transfusion currently Blood pressure relatively low Monitor blood pressure Chronic hyponatremia Sodium 134 Monitor (2) CAD (coronary artery disease): Plan: H/O STEMI s/p stenting to RCA and right PDA in 2014 Preop stress test negative for ischemia, EF 64% Continue ASA, statin, beta-alexis, ramipril Resume Plavix at the discretion of spine Ortho (3) Seizure disorder: Plan: Continue carbamazepine and lamotrigine (4) DVT prophylaxis: Plan: TEDs/SCDs as per spine Ortho Thank you for this consultation. We will follow the patient with you during their hospital stay. You can reach a member of the [facility] Hospitalist Team 19/09 [facility] in [place] Text. Admission and Anticipated Discharge Date Admission Date: January 25, 2022 Subjective Patient is seen and examined at bedside Back pain at surgical site is controlled Prefers Tao catheter to be removed Denies any chest pain, shortness of breath, dizziness, nausea, abdominal pain No other complaints Review of Systems Review of Systems: All systems reviewed & are unremarkable except as noted in Subjective Physical Exam Physical Exam: Physical Exam: Vitals signs as noted above General Appearance:Moderately built and nourished, no apparent distress Head: normocephalic, Atraumatic Eyes: normal inspection, EOMI Neck: supple, Trachea midline Respiratory/Chest: Normal breath sounds, CTA, No accessory muscle use Cardiovascular: S1, S2, No murmur Abdomen/GI:Soft, Non tender, Bowel sounds present Back: Surgical site in dressing, +Drain Extremities/Musculoskeletal:normal inspection, no edema Neurologic/Psych:AAOX3, grossly no focal neurological deficits Skin: normal color, warm Results & Data Results & Data ([facility]) Vital Signs (Past 12 Hours) Vital Signs Temp Pulse Resp BP Pulse Ox O2 Del Method 01/26/22 16:36 88 103/58 L 96 Room Air 01/26/22 15:20 36.2 C L 91 H 18 94/60 L 98 Room Air 01/26/22 11:15 36.8 C 87 17 108/64 94 Room Air 01/26/22 07:54 36.6 C 80 17 126/70 98 Room Air Laboratory Results Short CBC 01/26/22 Range/Units 08:11 WBC 8.37 (4.8-10.8) K/ul Hgb 10.5 L (14.0-18.0) g/dl Hct 30.0 L (40.1-51.0) % Plt Count 174 (130-400) K/uL BMP 01/26/22 08:11 Sodium 134 L Potassium 4.2 Chloride 100 Carbon Dioxide 30 BUN 8 Creatinine 0.77 Glucose 103 H Calcium 7.8 L
[2022-01-26] MEDS: ATORVASTATIN 40 MG TAB PO SCH (20:29)
[2022-01-26] MEDS: DOCUSATE SODIUM/SENNA 50/8.6MG TAB PO SCH (20:33)
[2022-01-27] MEDS: POLYETHYLENE (MIRALAX) 17 GM PACK PO SCH ×2 (00:38→06:47)
[2022-01-27 08:59] LABS: Hematocrit (blood only) 30.2 % (40.1-51.0); Hemoglobin 10.8 g/dl (14.0-18.0); Mean Corpuscular Hemoglobin 32.6 pg (25.0-34.0); Mean Corpuscular Hgb Conc 35.8 g/dL (32.0-36.0); Mean Corpuscular Volume 91.2 fL (80.0-100.0); Platelet Count 206 K/uL (130-400); RDW Coefficient of Variation 11.9 % (11.5-14.5); RDW Standard Deviation 39.8 fL (36.4-46.3); Red Blood Count 3.31 M/uL (4.63-6.08); White Blood Count 10.79 K/ul (4.8-10.8)
[2022-01-27 09:22] LABS: BUN Creatinine Ratio 16.3 (10-20); Creatinine Clr Calc Pharmacy 111.6 ml/min; Est GFR (African American) 110.2 ml/min; Est GFR (Non-African American) 95.1 ml/min
[2022-01-27] MEDS: ASPIRIN 81 MG ECTAB PO SCH (10:22)
[2022-01-27] MEDS: carvediloL 3.125 MG TAB PO SCH ×2 (10:23→21:03)
[2022-01-27] MEDS: CYANOCOBALAMIN (B-12) 500 MCG TABLET PO SCH (10:24)
[2022-01-27] MEDS: MULTIVITAMIN TAB PO SCH (10:24)
[2022-01-27] MEDS: ENALAPRIL MALEATE 10 MG TAB PO SCH ×2 (10:24→20:58)
[2022-01-27] MEDS: CARBAMAZEPINE 200 MG PO SCH ×2 (10:25→21:03)
[2022-01-27] MEDS: dexAMETHasone 6 MG in SYRINGE 0 ML IV SCH (10:25)
--- NOTE | 2022-01-27 11:18 | Orthopedic Progress Note ---
Date of Service January 27, 2022 Assessment & Plan (1) Spinal stenosis, lumbar region with neurogenic claudication: Plan: Today we will initiate physical therapy monitor his progress. Possible discharge home Monday or Monday. Admission and Anticipated Discharge Date Admission Date: January 25, 2022 Subjective Patient's back pain is controlled leg symptoms markedly improved. Physical Exam Physical Exam: Patient is in the chair at the bedside. He is comfortable. He has good strength testing. Results & Data ([facility]) Vital Signs (Past 12 Hours) Vital Signs Temp Pulse Resp BP Pulse Ox O2 Del Method 01/27/22 10:21 88 114/71 01/27/22 07:32 36.7 C 89 16 127/73 97 Room Air
--- NOTE | 2022-01-27 15:15 | Hospitalist Progress Note ---
Date of Service January 27, 2022 Assessment & Plan (1) Spinal stenosis, lumbar region with neurogenic claudication: Plan: S/P L2-L3 decompression fusion with hardware revision L3-L5, L3-S1 hardware removal. Dural thinning noted on operative report with placement of DuraGen over sections of the dura that were quite thin secondary to bony ingrowth. on 01/25/22 by Postoperative acute blood loss anemia Activity, DVT Px, and wound care as per ortho Pain control Bowel regimen to prevent constipation Incentive spirometer Continue PT OT Monitor CBC No indication of PRBCs transfusion BP stable today Chronic hyponatremia Likely SIADH due to carbamazepine Sodium 130 today Check urine, serum osmolality, urine sodium Monitor sodium levels Possible Urinary retention Patient denies H/O BPH Bladder scan as needed Will consider Flomax if needed (2) CAD (coronary artery disease): Plan: H/O STEMI s/p stenting to RCA and right PDA in 2014 Preop stress test negative for ischemia, EF 64% Continue ASA, statin, beta-alexis, ramipril Resume Plavix at the discretion of spine Ortho (3) Seizure disorder: Plan: Continue carbamazepine and lamotrigine (4) DVT prophylaxis: Plan: TEDs/SCDs as per spine Ortho Thank you for this consultation. We will follow the patient with you during their hospital stay. You can reach a member of the [facility] Hospitalist Team 19/09 via the [place] Hospitalist role in [place] Text. Admission and Anticipated Discharge Date Admission Date: January 25, 2022 Subjective Patient is seen and examined at bedside States having decreased urinary output after removal of dominguez catheter Back pain is controlled Denies any chest pain, shortness of breath, dizziness, nausea, abdominal pain Had BM today Review of Systems Review of Systems: All systems reviewed & are unremarkable except as noted in Subjective Physical Exam Physical Exam: Physical Exam: Vitals signs as noted above General Appearance:Moderately built and nourished, no apparent distress Head: normocephalic, Atraumatic Eyes: normal inspection, EOMI Neck: supple, Trachea midline Respiratory/Chest: Normal breath sounds, CTA, No accessory muscle use Cardiovascular: S1, S2, No murmur Abdomen/GI:Soft, Non tender, Bowel sounds present Back: Surgical site in dressing, +Drain Extremities/Musculoskeletal:normal inspection, no edema Neurologic/Psych:AAOX3, grossly no focal neurological deficits Skin: normal color, warm Results & Data Results & Data ([facility]) Vital Signs (Past 12 Hours) Vital Signs Temp Pulse Resp BP Pulse Ox O2 Del Method 01/27/22 10:21 88 114/71 01/27/22 07:32 36.7 C 89 16 127/73 97 Room Air Laboratory Results Short CBC 01/27/22 Range/Units 08:22 WBC 10.79 (4.8-10.8) K/ul Hgb 10.8 L (14.0-18.0) g/dl Hct 30.2 L (40.1-51.0) % Plt Count 206 (130-400) K/uL BMP 01/27/22 08:22 Sodium 130 L Potassium 4.0 Chloride 99 Carbon Dioxide 28 BUN 13 Creatinine 0.80 Glucose 109 H Calcium 8.0 L
[2022-01-27] MEDS: ATORVASTATIN 40 MG TAB PO SCH (20:56)
[2022-01-27] MEDS: LAMOTRIGINE 300 MG PO SCH (20:58)
[2022-01-27] MEDS: DOCUSATE SODIUM/SENNA 50/8.6MG TAB PO SCH (21:04)
[2022-01-28] MEDS: MULTIVITAMIN TAB PO SCH (07:46)
[2022-01-28] MEDS: CYANOCOBALAMIN (B-12) 500 MCG TABLET PO SCH (07:47)
[2022-01-28] MEDS: ENALAPRIL MALEATE 10 MG TAB PO SCH (07:47)
[2022-01-28] MEDS: carvediloL 3.125 MG TAB PO SCH (07:48)
[2022-01-28] MEDS: ASPIRIN 81 MG ECTAB PO SCH (07:48)
[2022-01-28] MEDS: dexAMETHasone 6 MG in SYRINGE 0 ML IV SCH (07:49)
[2022-01-28] MEDS: CARBAMAZEPINE 200 MG PO SCH (07:53)
[2022-01-28 08:03] LABS: BUN Creatinine Ratio 14.1 (10-20); Creatinine Clr Calc Pharmacy 114.4 ml/min; Est GFR (African American) 111.3 ml/min; Est GFR (Non-African American) 96.1 ml/min; Potassium 3.7 mmol/L (3.5-5.1)
--- NOTE | 2022-01-28 11:17 | Discharge Summary ---
Date of Service January 28, 2022 Admission HPI Per Admitting Provider This is a 61-year-old male who presents with chronic persistent back and leg pain after failing course of nonoperative care is here for surgical invention. Principal Diagnosis Lumbar spinal stenosis with neurogenic claudication Discharge Data Allergies Allergy/AdvReac Type Severity Reaction Status Date / Time Iodinated Contrast Media Allergy Severe SEE NOTES Verified 01/25/22 06:37 Consultations 01/25/22 11:54 Consult Hospitalist Routine Procedures Performed Operation Date: 01/25/22 07:45 Actual Procedures p L2-L3 Decompression and Fusion, (Not Applicable) - Joe Palafox DO s L3-S1 Hardware Removal(Not Applicable) - Joe Palafox DO Ordered Studies 01/25/22 [place] lumbar spine 2-3V Routine Hospital Course (1) Status post lumbar surgery: Patient underwent lumbar decompression fusion tolerated well taken to orthopedic for postoperative. We did initiate physical therapy postop day 2. He fell this well. He has good strength testing. Socially discharged home. Discharge orders instructions from the chart for further view. Total Time Total Time Spent Total Time Spent (In Minutes): 20 minutes Discharge Plan Discharge Items Patient Disposition: Home - Self-Care Reason For Visit: Other Biomechanical Lesions of Lumbar Region Discharge Diagnosis: Lumbar spinal stenosis with radiculopathy Activity: As commented below Non-emergency contact: Primary Care Provider Call non-emergency contact if: you have any medication questions Follow-up/Referrals: Roland Cali MD [Primary Care Provider] - Diet: Regular Addtl Attending Provider Instructions: ACTIVITY RECOMMENDATIONS: SELF CARE INSTRUCTIONS AFTER THORACIC/LUMBAR FUSIONS 1. You may walk to your tolerance. It is good exercise for your legs and back. Expect some back and intermittent leg aches and pains. 2. You may perform "counter-top" level activities (make a sandwich, missy with a project, etc.). 3. No bending or lifting of more than 10 pounds or back twisting of any nature (roll like a log when turning in bed). 4. You may ride in a car for 20-30 minutes at a time. No driving until after your first visit with your doctor. 5. Frequent changes of position and restricting sitting to 30 minutes at a time will help limit the amount of back spasms and stiffness you may experience. 6. You may discontinue the use of ambulatory aids (cane, crutches, etc.) once your strength and confidence allow. 7. You may final tester the shower and let water strike your incision when you arrive home at least once daily. Do not take a tub bath, sit in a hot tub or go into a swimming pool until after your first recheck in the office. SPECIAL CARE INSTRUCTIONS: VERY IMPORTANT TO READ AND REVIEW A. Your surgical incision has been closed with a cosmetic suture under the skin that will dissolve in about 6 weeks. In 14 days, you can use a pair of clean scissors and cut the suture that is left outside of the skin at the ends of your incision. 1. The small skin tapes can be removed 7 days after surgery if they have not fallen off by that point. 2. You may keep the wound open to air as much as possible to promote healing after post-op day number 5 unless told otherwise by your doctor. 3. If you think the wound looks like it is becoming infected (redness or worsening drainage) and/or you are experiencing fever, chill or worsening back pain and muscle spasms, contact the office so that we may e valuate you as soon as possible. B. Complications are uncommon, but please contact us if you have any signs or symptoms of: 1. wound infection (fever higher than 102.5 degrees F, redness, separation of wound, drainage, or increasing pain from the incision) 2. blood clots in legs (pain, swelling, redness and warmth in legs) 3. urinary tract infection (fever higher than 102.5 degrees F, burning upon urination or increased frequency of urination) 4. nerve problems (inability to walk on your toes or heels, numbness, loss of bowel or bladder control) 5. any other symptoms that concern you C. Please call the office at if you have any concerns or questions about your operation or recovery. D. No smoking! Smoking drastically decreases the chance of a solid fusion. E. Do not take any anti-inflammatory medications (Indocin, Advil, Motrin, Aspirin, Naprosyn, etc.) as these may inhibit the chance of a solid fusion. Tylenol is okay to take for pain. MANAGING PAIN AFTER SPINAL SURGERY 1. Narcotic medication is intended for short-term use and will be provided for surgical pain. Surgical pain usually lasts for a period of 4-6 weeks. Narcotic medication includes Percocet, Vicodin, Darvocet, Tylenol #3 or Lortab. 2. Longer-term pain is more appropriately treated with non-narcotic medication such as Tylenol ES. 3. Muscle spasm is not appropriately treated with narcotics. Muscle relaxers such as Soma, Flexeril or Skelaxin can be used along with Tylenol ES. 4. Remember that we all live with some "aches and pains". This is not unusual or uncommon after an injury or as we get older. a. Back pain is expected and may include muscle spasms for 4 to 6 weeks after surgery. The pain should gradually improve. If the pain worsens for no apparent reason, please contact the office. b. Intermittent leg pain may also be experienced and should not be concerned about unless it worsens for no apparent reason. If so, please contact the office. 5. We will provide appropriate medication within the normal guidelines of their prescribed use. We will also be very cautious and aware of potential abuse and extended duration of patients' medication needs. a. Pain medications are for your comfort and to assist with sleep and rest so that the tissue can heal. They are not provided in order to return to normal activity and should not be used through the day. To do so or worsening pain at night can result from ongoing tissue damage and development of tolerance to the prescribed medicine. 6. Please allow 2-3 days to process refills. Prescriptions will not be mailed but must be picked up at the office. FOLLOW UP VISIT: Keep your scheduled follow-up appointment. Any questions, please call the office at . Pending Studies at Discharge: No Stand-Alone Forms: My [facility] [employer], Smoking Cessation Medications and DC Order Prescriptions: New oxycodone 5 mg tablet 5 mg PO Q6H PRN (Reason: pain, severe) Qty: 30 0RF tramadol 50 mg tablet 50 mg PO Q6H PRN (Reason: pain, moderate) Qty: 30 0RF Continued carvedilol [Coreg] 3.125 mg Tablet 3.125 mg PO BID ramipril [Altace] 2.5 mg Capsule 2.5 mg PO BID multivitamin [Multiple Vitamins] Tablet 1 tab PO QAM atorvastatin 40 mg Tablet 40 mg PO HS clopidogrel 75 mg Tablet 75 mg PO QAM aspirin [Aspir-81] 81 mg Tablet,Delayed Release (Dr/Ec) 81 mg PO QAM oxycodone 5 mg Tablet 5 mg PO Q4H PRN (Reason: Pain) Qty: 30 0RF lamotrigine [Lamictal XR] 300 mg Tablet Extended Release 24hr 300 mg PO HS carbamazepine [Tegretol XR] 200 mg Tablet Extended Release 12 Hr 400 mg PO BID cyanocobalamin (vitamin B-12) 1,000 mcg Capsule 1,000 mcg PO QAM Discharge Orders: Discharge Order (Routine); Ordered 01/28/22 Ordered By: Joe Palafox Admission Data Admit Date/Time: 01/25/22 10:10 Attending Provider: Joe Palafox Admit Provider: Joe Palafox Primary Care Provider: Roland Cali Other Providers: Bina Eugene ; Jamal Clement
--- NOTE | 2022-01-28 13:23 | Hospitalist Progress Note ---
Date of Service January 28, 2022 Assessment & Plan (1) Spinal stenosis, lumbar region with neurogenic claudication: Plan: S/P L2-L3 decompression fusion with hardware revision L3-L5, L3-S1 hardware removal. Dural thinning noted on operative report with placement of DuraGen over sections of the dura that were quite thin secondary to bony ingrowth. 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 We will follow the patient with you during their hospital stay. You can reach a member of the [facility] Hospitalist Team 19/09 via the [facility] Hospitalist role in [place] Text. Admission and Anticipated Discharge Date Admission Date: January 25, 2022 Subjective Patient is seen and examined at bedside No urinary retention Discussed with patient's family at bedside Plan to be discharged home today Back pain is better Denies any chest pain, shortness of breath, dizziness, nausea, abdominal pain Review of Systems Review of Systems: All systems reviewed & are unremarkable except as noted in Subjective Physical Exam Physical Exam: Physical Exam: Vitals signs as noted above General Appearance:Moderately built and nourished, no apparent distress Head: normocephalic, Atraumatic Eyes: normal inspection, EOMI Neck: supple, Trachea midline Respiratory/Chest: Normal breath sounds, CTA, No accessory muscle use Cardiovascular: S1, S2, No murmur Abdomen/GI:Soft, Non tender, Bowel sounds present Back: Surgical site in dressing Extremities/Musculoskeletal:normal inspection, no edema Neurologic/Psych:AAOX3, grossly no focal neurological deficits Skin: normal color, warm Results & Data Results & Data ([facility]) Vital Signs (Past 12 Hours) Vital Signs Temp Pulse Pulse Pulse Resp BP BP 01/28/22 12:00 36.6 C 89 77 81 16 119/67 109/67 01/28/22 08:42 81 109/67 01/28/22 07:50 36.6 C 87 16 119/17 L Pulse Ox O2 Del Method 01/28/22 12:00 100 01/28/22 08:42 100 Room Air 01/28/22 07:50 98 Room Air
== END 2022-01-28 12:55 | disposition home or self-care (01) | DRG 454 ==
LOC: ASU 06:07 → PACUINP 10:10 → 3E 16:07
DX: Z79.899 Other long term (current) drug therapy; G40.409 Other generalized epilepsy and epileptic syndromes, not intractable, without status epilepticus; Z79.02 Long term (current) use of antithrombotics/antiplatelets; D62 Acute posthemorrhagic anemia; Z47.2 Encounter for removal of internal fixation device; Z91.041 Radiographic dye allergy status; R33.9 Retention of urine, unspecified; I25.2 Old myocardial infarction; Z98.1 Arthrodesis status; Z95.5 Presence of coronary angioplasty implant and graft; I25.10 Atherosclerotic heart disease of native coronary artery without angina pectoris; E22.2 Syndrome of inappropriate secretion of antidiuretic hormone; Z20.822 Contact with and (suspected) exposure to COVID-19; Z79.82 Long term (current) use of aspirin; M48.062 Spinal stenosis, lumbar region with neurogenic claudication

== ENCOUNTER 2022-10-05 10:02 | Inpatient (IN) ==
--- NOTE | 2022-09-27 08:23 | Anesthesiology Consultation ---
Date of Service September 27, 2022 Assessment & Plan (1) Encounter for pre-operative examination: - will attempt to obtain 09/27/22 [facility] cardiology office note. - medical clearance 09/26/22: "...having back surgery with Dr. Palafox...[place] in [place]...RCA stent and two angioplasties without stents...stress test last year... 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 Chart Review Chart Review: Pending: Refer to Additional Notes / Consult section and Patient NOT seen in Pre Admission Testing History Surgery Operation Date: 10/05/22 10:05 Proposed Procedures p L1-L2 Decompression, T11-L2 Fusion, Possible Hardware Removal Spinal Cord Monitoring - Joe Palafox, Height/Weight Height: 5 ft 11 in Weight: 97.522 kg Allergies Allergy/AdvReac Type Severity Reaction Status Date / Time Iodinated Contrast Media Allergy Severe SEE NOTES Verified 09/26/22 16:31 Medications Home Medications Medication Instructions Recorded Confirmed Last Taken aspirin 81 mg tablet,delayed 81 mg PO QAM 05/02/18 09/26/22 01/22/22 release (Aspir-) atorvastatin 40 mg tablet 40 mg PO HS 05/02/18 09/26/22 01/24/22 20:00 carvedilol 3.125 mg tablet (Coreg) 3.125 mg PO BID 05/02/18 09/26/22 01/25/22 06:00 clopidogrel 75 mg tablet 75 mg PO QAM 05/02/18 09/26/22 01/18/22 multivitamin (Multiple Vitamins 1 tab PO QAM 05/02/18 09/26/22 01/20/22 tablet) ramipril 2.5 mg capsule (Altace) 2.5 mg PO BID 05/02/18 09/26/22 01/23/22 20:00 lamotrigine 300 mg tablet,extended 300 mg PO HS 05/30/18 09/26/22 01/24/22 20:00 release 24 hr (Lamictal XR) carbamazepine 200 mg 400 mg PO BID 12/24/21 09/26/22 01/25/22 06:00 tablet,extended release,12 hr (Tegretol XR) cyanocobalamin (vitamin B-12) 1,000 mcg PO QAM 12/24/21 09/26/22 01/20/22 1,000 mcg capsule Past Medical History Medical History Acid reflux 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 Ortiz/LIOR Degenerative disc disease Grand mal seizure disorder Pt unaware of when episodes occur as they happen when sleeping (no recent known episode) Follows with Dr. Cobian Myocardial Infarction 2015 Scoliosis Past Family History Family History Father Family history of lung cancer Other Aortic aneurysm Coronary heart disease No family history of adverse response to anesthesia Past Surgical History Surgical History Fusion of spine L3-S1 decompression/fusion (05/28/18): Grade 1 view, MAC#3, ETT 8.0 at [facility]. No issues noted per post-op anesthesia progress note. 01/25/22 [facility] H/O inguinal hernia repair H/O sinus surgery H/O umbilical hernia repair History of appendectomy History of colonoscopy History of foot surgery RT/LEFT CYST REMOVED History of heart artery stent 2014 (stents x2) Social History Smoking Status: Never smoker Do You Dip or Chew Tobacco: No Hx Alcohol Use: No Hx Substance Use: No substance use type: does not use Lab Results Anesthesia Preop Results Results Anesthesia Widget: WBC 5.70 K/ul (4.8-10.8) 09/14/22 Hgb 14.6 g/dl (14.0-18.0) 09/14/22 Hct 41.2 % (42.0-52.0) L 09/14/22 Plt 247 K/uL (130-400) 09/14/22 Na 131 mmol/L (136-145) L 09/14/22 K 4.5 mmol/L (3.5-5.1) 09/14/22 Cl 99 mmol/L (98-107) 09/14/22 CO2 26 mmol/L (21-32) 09/14/22 BUN 10 mg/dl (6-23) 09/14/22 Creat 0.97 mg/dl (0.6-1.4) 09/14/22 Glucose Level 130 mg/dl (70-99(Fasting)) H 09/14/22 PT 11.1 Seconds (9.0-12.0) 09/14/22 PTT 27.4 Seconds (21.0-31.0) 09/14/22 INR 1.0 (0.9-1.1) 09/14/22 Blood Type B Positive 09/14/22 Antibody Screen NEGATIVE 09/14/22 Testing Electrocardiogram Date: 09/14/22 NSR, rate 73 bpm Chest X-Ray Date: 09/14/22 No acute cardiopulmonary findings Echocardiogram Date: 01/18/22 EF 55% No obvious RWMA No significant valvular pathology Stress Test Date: 01/18/22 Pharmacologic MPHR 63% Negative for ischemia EF 64% Cervical Spine Date: 06/02/22 CT Degenerative changes without evidence of acute bony injury
[~2022-10-05 10:02] MED LIST changes: +LR 60ML/HR IV SCH
[2022-10-05] MEDS ORDERED: ATROPINE SULFATE 0.1 MG/ML 10ML SYR IV PRN (11:09)
[2022-10-05] MEDS ORDERED: PROMETHAZINE HCL 6.25 MG in SODIUM CHLORIDE 0.9% 50 ML IV PRN (11:09)
[2022-10-05] MEDS ORDERED: ONDANSETRON INJ 2 MG/ML 2 ML VIAL IV PRN (11:09)
[2022-10-05] MEDS ORDERED: ePHEDrine sulfate 50 MG/ML AMP IV PRN (11:09)
[2022-10-05] MEDS ORDERED: ONDANSETRON INJ 2 MG/ML 2 ML VIAL ONE (11:41)
[2022-10-05] MEDS ORDERED: DEXAMETHASONE SOD INJ 4 MG/ML VIAL ONE (11:41)
[2022-10-05] MEDS ORDERED: LIDOCAINE 2% 2 ML VIAL/AMP(20MG/ML) INFIL ONE (11:41)
[2022-10-05] MEDS ORDERED: MIDAZOLAM HCL 1 MG/ML 2ML VIAL ONE (11:41)
[2022-10-05] MEDS ORDERED: PROPOFOL IV EMULSION 10 MG/ML 20 ML VIAL IV ONE (11:41)
[2022-10-05] MEDS ORDERED: fentaNYL citrate PF 100 MCG/2 ML VIAL ONE (11:41)
[2022-10-05] MEDS ORDERED: ROCURONIUM BROMIDE 10 MG/ML 5 ML VIAL IV ONE (11:41)
--- NOTE | 2022-10-05 11:55 | History & Physical Bridge Note ---
Date of Service October 05, 2022 History & Physical Bridge Note I have examined the patient, reviewed the History & Physical and in the interval since the performance of the History & Physical I have noted the following changes of clinical significance: no changes noted
--- NOTE | 2022-10-05 11:57 | History & Physical Report ---
Date of Service October 05, 2022 Assessment & Plan (1) Spinal stenosis, lumbar region with neurogenic claudication: Plan: L1-L2 decompression, T11-L2 fusion, possible hardware removal History of Present Illness Chief Complaint: Back and leg pain Primary Care Provider: Roland Cali MD This is a 62-year-old male who presents with chronic persistent back and leg pain after failing course of nonoperative care is here for surgical invention. Allergies Allergy/AdvReac Type Severity Reaction Status Date / Time Iodinated Contrast Media Allergy Severe SEE NOTES Verified 10/05/22 10:25 Home Medications Medication Instructions Recorded Confirmed Type aspirin 81 mg tablet,delayed 81 mg PO QAM 05/02/18 10/05/22 History release (Aspir-) atorvastatin 40 mg tablet 40 mg PO HS 05/02/18 10/05/22 History carvedilol 3.125 mg tablet (Coreg) 3.125 mg PO BID 05/02/18 10/05/22 History clopidogrel 75 mg tablet 75 mg PO QAM 05/02/18 10/05/22 History multivitamin (Multiple Vitamins 1 tab PO QAM 05/02/18 10/05/22 History tablet) ramipril 2.5 mg capsule (Altace) 2.5 mg PO BID 05/02/18 10/05/22 History lamotrigine 300 mg tablet,extended 300 mg PO HS 05/30/18 10/05/22 History release 24 hr (Lamictal XR) carbamazepine 200 mg 400 mg PO BID 12/24/21 10/05/22 History tablet,extended release,12 hr (Tegretol XR) cyanocobalamin (vitamin B-12) 1,000 mcg PO QAM 12/24/21 10/05/22 History 1,000 mcg capsule Past Med/Surg History Medical History Acid reflux 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 Ortiz/LIOR Degenerative disc disease Grand mal seizure disorder Pt unaware of when episodes occur as they happen when sleeping (no recent known episode) Follows with Dr. Cobian Myocardial Infarction 2015 Scoliosis Surgical History Fusion of spine L3-S1 decompression/fusion (05/28/18): Grade 1 view, MAC#3, ETT 8.0 at [facility]. No issues noted per post-op anesthesia progress note. 01/25/22 [facility] H/O inguinal hernia repair H/O sinus surgery H/O umbilical hernia repair History of appendectomy History of colonoscopy History of foot surgery RT/LEFT CYST REMOVED History of heart artery stent 2014 (stents x2) Family History Father Family history of lung cancer Other Aortic aneurysm Coronary heart disease No family history of adverse response to anesthesia Social History Smoking Status: Never smoker Second Hand Exposure: Yes (as a child); Do You Dip or Chew Tobacco: No; Hx Alcohol Use: No Hx Substance Use: No Preferred Language: Mauritian Communication Ability: Effective Communication Ability Comment: NO EYESIGHT RIGHT EYE Bellows Tester Required: No Beliefs That Will Affect Care: None marital status: Current Living Situation: Spouse Feels Safe at Home: Yes Safety Concerns: Feels Safe At This Time Assistive Devices: Glasses Physical Exam Physical Exam: Patient is alert and oriented Heart regular rhythm Lungs clear Results & Data Results & Data Vital Signs (Past 12 Hours) Vital Signs Temp Pulse Resp BP Pulse Ox O2 Del Method 10/05/22 10:23 36.4 C L 76 20 126/79 99 Room Air
[2022-10-05] MEDS ORDERED: ceFAZolin 330 MG/ML 1 GM VIAL ONE (12:22)
[2022-10-05] MEDS ORDERED: BUPIVACAINE/EPINEPHRINE 0.25% 1:200,000 30 ML VIAL ONE (12:22)
[2022-10-05] MEDS ORDERED: ePHEDrine sulfate 50 MG/ML AMP ONE (12:58)
[2022-10-05] MEDS ORDERED: FLOSEAL HEMOSTATIC MATRIX 10ML TOP ONE (13:24)
[2022-10-05] MEDS ORDERED: KETAMINE 50 MG/5 ML SYRINGE ONE (13:47)
[2022-10-05] MEDS ORDERED: SUGAMMADEX SODIUM 200 MG/2 ML VIAL IV ONE (14:22)
--- NOTE | 2022-10-05 14:26 | Operative Report ---
Post Operative Report Pre & Post Diagnosis Operation Date: 10/05/22 11:55 Pre-Op Diagnosis: Spinal stenosis, lumbar region with neurogenic claudication Post-Op Diagnosis: Spinal stenosis, lumbar region with neurogenic claudication I identified the patient and participated in the time-out.: Yes Procedure Operation Date: 10/05/22 11:55 Actual Procedures #1 lumbar decompression with bilateral medial facetectomies and foraminotomies T12-L1 L1-L2. #2 posterior spinal fusion T11-L2. #3 placement posterior segmental instrumentation T11-L1 with connectors at L2-L3. #4 interbody fusion L1-L2. #5 placement of Spira 10 x 26 mm at L1-L2. #6 placement locally harvested morselized autograft in the posterior gutters. #7 placement I factor in the interbody space and infuse collagen sponge bone mass graft in the posterior lateral gutters. Surgeon Joe Palafox DO Customer Supply Chain Analyst Amna Vargas Estimated Blood Loss 200 Findings Consistent with Post-Op Diagnosis Specimens None Indications This is a 62-year-old male well-known to me the presents above-mentioned diagnosis after failing course of nonoperative care is here for surgical in tervention. Description of Procedure Patient was met with identified informed consent obtained. Patient was then taken to the operative suite underwent ablation placed in a prone position on the Miguel table top Lino frame. All bony prominences well-padded eyes inspected to ensure no external pressure placed upon the. This point the thoracolumbar spine was prepped and draped in a sterile fashion. Sharp dissection with the assistance of Bovie cautery performed down to and exposing the lamina transverse processes of T11 T12-L1 and L2. I then proceeded to perform a complete laminectomy of L1 partial laminectomy of T12 addressing severe central and lateral recess as well as foraminal stenosis. Pedicle screws then placed in T11-T12 and L1 bilaterally with assistance of fluoroscopy and by way of a transforaminal approach on the right complete discectomy of L1 and L2 was performed endplates corrected to subcortically bone and a 10 x 26 mm Spira cage with I factor tapped in position. Connectors were then attached to the previous [place] at L2-L3 and appropriate sized rods were then contoured and locked into position bilaterally. The transverse processes of T11-T12 L1-L2 were burred to subcortical bleeding bone. Infuse collagen sponge from mass graft and locally harvested morselized autograft was placed in the posterior gutters. 15 round KEERTHI inserted. The incision was then closed with 1 Vicryl the fascia 2-0 Vicryl subcutaneously and 4 Monocryl for final skin closure. Steri-Strip sterile dressings placed. Patient waken taken to PACU stable condition. Please note spinal cord monitoring was utilized at the procedure no changes noted. Lastly Amna Vargas was present at the entire surgeon while the patient positioning complex portion of the surgery and final skin closure. I attest to the content of the Intraoperative Record and any orders documented therein. Any exceptions are noted below.
[2022-10-05] MEDS: fentaNYL citrate PF 100 MCG/2 ML VIAL IV PRN ×4 (15:18→15:33)
[2022-10-05] MEDS: HYDROmorphone INJ 1 MG/ML SYRINGE IV PRN ×3 (15:38→15:48)
--- NOTE | 2022-10-05 16:11 | Anesthesiology Progress Note ---
Date of Service October 05, 2022 Anesthesia Post Procedure Vital Signs Vital Signs: Temp Pulse Resp BP Pulse Ox O2 Del Method O2 Flow Rate 10/05/22 15:55 79 17 119/69 97 Nasal Cannula 4 10/05/22 15:45 77 18 127/75 100 Oxymask 5 10/05/22 15:35 76 19 113/77 97 Oxymask 5 10/05/22 15:25 76 19 145/84 H 100 Oxymask 5 10/05/22 15:15 75 19 112/79 100 Oxymask 5 10/05/22 15:05 74 20 162/118 H 100 Oxymask 5 10/05/22 14:49 36.5 C 78 20 162/85 H 98 Oxymask 5 10/05/22 10:23 36.4 C L 76 20 126/79 99 Room Air Pain Intensity Lower Back: Pain Intensity: 4 Transfer of Care Handoff Completed per policy Notes Mental Status: alert / awake / arousable Patient Amnestic to Procedure: Yes Nausea / Vomiting: adequately controlled Pain: adequately controlled Airway Patency, RR, SpO2: stable & adequate BP & HR: stable & adequate Hydration State: stable & adequate Anesthetic Complications: no major complications apparent and Pt Satisfied with anesthetic care
[2022-10-05] MEDS ORDERED: oxyCODONE HCL IR 5 MG TAB (IMMEDIATE RELEASE) PO PRN (16:30)
[2022-10-05] MEDS ORDERED: HYDROmorphone INJ 0.5 MG/0.5 ML SYR IV PRN (16:30)
[2022-10-05] MEDS ORDERED: LORazepam 0.5 MG TAB PO PRN (16:30)
[2022-10-05] MEDS ORDERED: NALOXONE HCL 0.4 MG/1 ML VIAL/CARP IV PRN (16:30)
[2022-10-05] MEDS ORDERED: LORazepam 2 MG/1 ML VIAL IV PRN (16:30)
[2022-10-05] MEDS ORDERED: DO NOT ADMINISTER FLU VACCINE PRN (16:30)
[2022-10-05] MEDS ORDERED: METOCLOPRAMIDE HCL INJ 5 MG/ML 2 ML VIAL IV PRN (16:30)
[2022-10-05] MEDS ORDERED: traMADol HCL 50 MG TABLET PO PRN (16:30)
[2022-10-05] MEDS ORDERED: ACETAMINOPHEN 1,000 MG/100 ML VIAL IV PRN (16:30)
[2022-10-05] MEDS ORDERED: hydrOXYzine HCl 25 MG TAB PO PRN (16:30)
[2022-10-05] MEDS ORDERED: ALUMINUM/MAGNESIUM SUSP 30 ML UDC PO PRN (16:30)
[2022-10-05] MEDS ORDERED: ACETAMINOPHEN 500 MG TAB PO PRN (16:30)
[2022-10-05] MEDS ORDERED: FAMOTIDINE 20 MG TAB PO PRN (16:30)
[2022-10-05] MEDS ORDERED: MAGNESIUM HYDROXIDE SUSP 30 ML UDC PO PRN (16:30)
[2022-10-05] MEDS ORDERED: ONDANSETRON 4 MG OD TAB PO PRN (16:30)
[2022-10-05] MEDS ORDERED: diphenhydrAMINE Capsule 25 MG CAP PO PRN (16:30)
[2022-10-05] MEDS ORDERED: DO NOT ADMINISTER PNEUMOCOCCAL VACCINE PRN (16:30)
[2022-10-05] MEDS ORDERED: bisacodyL 10 MG SUPP PR PRN (16:30)
[2022-10-05] MEDS ORDERED: PROMETHAZINE HCL 12.5 MG in SODIUM CHLORIDE 0.9% 50 ML IV PRN (16:30)
[2022-10-05] MEDS ORDERED: SOD PHOSPHATE/SOD BIPHOSPHATE ENEMA 132 ML BTL PR PRN (16:30)
[2022-10-05] MEDS: LACTATED RINGER'S 1,000 ML IV SCH ×2 (17:45→20:54)
--- NOTE | 2022-10-05 19:33 | Consultation ---
Date of Consultation October 05, 2022 Assessment & Plan (1) S/P spinal surgery: (2) Spinal stenosis, lumbar region with neurogenic claudication: Post op day# 0 S/P T12-L2 decompression and fusion by Dr Vivienne LAY#200 ml Pain management per ortho Wound management per ortho PT/OT as appropriate DVT prophylaxis per ortho Incentive spirometry Monitor H&H for acute blood loss anemia; pre-op Hgb: 14.6 (3) CAD (coronary artery disease): H/O STEMI, S/P stent RCA & right PDA in 2014 Hold plavix, resume per ortho spine Continue aspirin, atorvastatin, carvedilol, ramipril (4) Seizure disorder: Continue lamotrigine, Tegretol Would recommend avoiding tramadol DVT Prophylaxis SCDs Disposition per primary service [place] for routine care Pt was seen and care coordinated with Dr Eugene. See addendum Thank you for this consultation. We will follow the patient with you during their hospital stay. You can reach a [facility] via [facility] Supervising Physician Co-Signing Physician Notes I have seen and examined the patient and have discussed the case with the provider above. I agree with the assessment and plan as stated. 62 yo M s/p lumbar spine surgery today. Pain is well managed and he denies any nausea or SOB or other issues. Has chronic peripheral that is unchanged. Hemodynamically stable and afebrile. Lower extremities are warm and well perfused. Exam as otherwise noted above. Cont medical management per plan above. Thank you for this consultation. DO Jabier History of Present Illness Requesting Physician: Dr Palafox Reason for Consultation: Post op medical management Attending Physician: Joe Palafox DO History of Present Illness Patient is 62-year-old male with PMH CAD, STEMI s/p stent 2014, seizure disorder seen in medical consultation s/p decompression and fusion T12-L2 by Dr. Palafox today. Postop patient reports pain controlled. Last BM 2 days ago. Has Tao catheter in place. Denies fever/chills, diaphoresis, N/V/D, REDDY, dizziness, syncope, CP, SOB, palpitations, cough, sore throat, abdominal pain, paresthesias, extremity weakness, extremity edema, rashes, urinary symptoms. Allergies Allergy/AdvReac Type Severity Reaction Status Date / Time Iodinated Contrast Media Allergy Severe SEE NOTES Verified 10/05/22 10:25 Home Medications Medication Instructions Recorded Confirmed Type aspirin 81 mg tablet,delayed 81 mg PO QAM 05/02/18 10/05/22 History release (Aspir-) atorvastatin 40 mg tablet 40 mg PO HS 05/02/18 10/05/22 History carvedilol 3.125 mg tablet (Coreg) 3.125 mg PO BID 05/02/18 10/05/22 History clopidogrel 75 mg tablet 75 mg PO QAM 05/02/18 10/05/22 History multivitamin (Multiple Vitamins 1 tab PO QAM 05/02/18 10/05/22 History tablet) ramipril 2.5 mg capsule (Altace) 2.5 mg PO BID 05/02/18 10/05/22 History lamotrigine 300 mg tablet,extended 300 mg PO HS 05/30/18 10/05/22 History release 24 hr (Lamictal XR) carbamazepine 200 mg 400 mg PO BID 12/24/21 10/05/22 History tablet,extended release,12 hr (Tegretol XR) cyanocobalamin (vitamin B-12) 1,000 mcg PO QAM 12/24/21 10/05/22 History 1,000 mcg capsule Patient History Medical History Acid reflux 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 Ortiz/[facility] Degenerative disc disease Grand mal seizure disorder Pt unaware of when episodes occur as they happen when sleeping (no recent known episode) Follows with Dr. Cobian Myocardial Infarction 2014 Scoliosis Surgical History Fusion of spine L3-S1 decompression/fusion (05/28/18): Grade 1 view, MAC#3, ETT 8.0 at [facility]. No issues noted per post-op anesthesia progress note. 01/25/22 [facility] H/O inguinal hernia repair H/O sinus surgery H/O umbilical hernia repair History of appendectomy History of colonoscopy History of foot surgery RT/LEFT CYST REMOVED History of heart artery stent 2014 (stents x2) Family History Father Family history of lung cancer Other Aortic aneurysm Coronary heart disease No family history of adverse response to anesthesia Social History Smoking Status: Never smoker Second Hand Exposure: Yes (as a child); Do You Dip or Chew Tobacco: No; Hx Alcohol Use: No Hx Substance Use: No Preferred Language: Zimbabwean Communication Ability: Effective Communication Ability Comment: NO EYESIGHT RIGHT EYE Power Superintendent Required: No Beliefs That Will Affect Care: None marital status: Current Living Situation: Spouse Feels Safe at Home: Yes Safety Concerns: Feels Safe At This Time Assistive Devices: Glasses Review of Systems Review of Systems: All systems reviewed & are unremarkable except as noted in HPI & below Physical Exam Physical Exam: General: no distress, WDWN Head: normocephalic, atraumatic Eyes: conjunctiva non-injected, anicteric ENT: normal inspection external ears, nose, mucous membranes moist Neck: supple, trachea midline Lungs: clear, no respiratory distress, no wheezing/rhonchi/rales CV: RRR, no murmur, no JVD, no pretibial edema Abd: normal BS, soft, non-tender Back: surgical dressing in place, +KEERTHI drain with serosanguineous drainage Ext: no cyanosis, no calf tenderness; bilateral pedal pushes and pulls intact, d istal pulses intact, sensation to light touch intact Neuro: A&O x 3, no focal deficits noted, normal affect Skin: warm, dry Results & Data Vital Signs (Past 12 Hours) Vital Signs Temp Pulse Pulse Resp BP BP Pulse Ox 10/05/22 19:23 36.6 C 84 16 111/71 100 10/05/22 18:30 36.8 C 83 18 114/75 100 10/05/22 17:20 36.3 C L 81 18 107/68 100 10/05/22 16:50 36.4 C L 83 18 101/71 98 10/05/22 16:30 36.7 C 81 16 99/67 L 96 10/05/22 16:05 36.6 C 80 18 118/77 99 10/05/22 15:55 79 17 119/69 97 10/05/22 15:45 77 18 127/75 100 10/05/22 15:35 76 19 113/77 97 10/05/22 15:25 76 19 145/84 H 100 10/05/22 15:15 75 19 112/79 100 10/05/22 15:05 74 20 162/118 H 100 10/05/22 14:49 36.5 C 78 20 162/85 H 98 10/05/22 10:23 36.4 C L 76 20 126/79 99 O2 Del Method O2 Flow Rate 10/05/22 19:23 Nasal Cannula 3.0 10/05/22 18:30 Nasal Cannula 3 10/05/22 17:20 Nasal Cannula 3 10/05/22 16:50 Nasal Cannula 3 10/05/22 16:30 Nasal Cannula 3 10/05/22 16:05 Nasal Cannula 2 10/05/22 15:55 Nasal Cannula 4 10/05/22 15:45 Oxymask 5 10/05/22 15:35 Oxymask 5 10/05/22 15:25 Oxymask 5 10/05/22 15:15 Oxymask 5 10/05/22 15:05 Oxymask 5 10/05/22 14:49 Oxymask 5 10/05/22 10:23 Room Air
--- NOTE | 2022-10-05 19:40 | Fluoroscopy Report ---
INTRAOPERATIVE RADIOGRAPHS CLINICAL HISTORY: Lumbar spinal fusion surgery. Fluoro time: 46 seconds Ka,r: 40.78 mGy FINDINGS: 2 spot fluoroscopic views of the thoracal lumbar spine are presented. There is evidence of multilevel thoracolumbar laminectomy and posterior fusion. This extends from the lower thoracic spine into the lumbar spine. The exact levels cannot be delineated on the provided images. Discectomy galarza ge is seen in the upper lumbar levels. The orthopedic hardware appears intact. IMPRESSION: Intraoperative images from multilevel thoracolumbar spinal fusion surgery as above. Electronically signed by: Naeem Dominguez M.D. 10/05/2022 7:38 PM
[2022-10-05] MEDS: DOCUSATE SODIUM/SENNA 50/8.6MG TAB PO SCH (21:20)
[2022-10-05] MEDS: carvediloL 3.125 MG TAB PO SCH (21:20)
[2022-10-05] MEDS: ceFAZolin 2000MG 2,000 MG/15 ML SYR IV SCH (21:20)
[2022-10-05] MEDS: ENALAPRIL MALEATE 10 MG TAB PO SCH (21:20)
[2022-10-05] MEDS: LAMOTRIGINE 300 MG PO SCH (21:21)
[2022-10-05] MEDS: ATORVASTATIN 40 MG TAB PO SCH (21:21)
[2022-10-05 22:07] LABS: Appearance Urine Clear (Clear); Bacteria Urine Automated Negative (Negative); Bilirubin Urine Negative (Negative); Blood Urine Negative (Negative); Color Urine Yellow; Glucose Urine UA 3+ (Negative); Ketones Urine Trace (Negative); Leukocyte Esterase Urine Trace (Negative); Nitrite Urine Negative (Negative); Protein Urine Negative (Negative); RBC Urine Automated 0-4 /hpf (0-4); Specific Gravity Urine 1.016 (1.000-1.030); Urobilinogen Urine Negative (Negative)
[2022-10-06] MEDS: HYDROmorphone INJ 1 MG/ML SYRINGE IV PRN ×3 (02:16→22:45)
[2022-10-06] MEDS: ceFAZolin 2000MG 2,000 MG/15 ML SYR IV SCH (04:24)
[2022-10-06] MEDS: POLYETHYLENE (MIRALAX) 17 GM PACK PO SCH ×4 (06:25→22:46)
[2022-10-06] MEDS: LACTATED RINGER'S 1,000 ML IV SCH (06:25)
[2022-10-06 08:08] LABS: Basophils # (auto) 0.03 K/uL (0-0.2); Basophils % (auto) 0.3 %; Eosinophils # (auto) 0.06 K/uL (0-0.50); Eosinophils % (auto) 0.6 %; Hematocrit (blood only) 32.4 % (42.0-52.0); Hemoglobin 11.2 g/dl (14.0-18.0); Immature Granulocytes # (auto) 0.05 K/uL (0.01-0.20); Immature Granulocytes % (auto) 0.5 %; Lymphocytes # (auto) 2.59 K/uL (1.2-3.4); Lymphocytes % (auto) 25.3 %; Mean Corpuscular Hemoglobin 31.9 pg (25.0-34.0); Mean Corpuscular Hgb Conc 34.6 g/dL (32.0-36.0); Mean Corpuscular Volume 92.3 fL (80.0-100.0); Mean Platelet Volume 9.1 fL (9.4-12.4); Monocytes # (auto) 1.14 K/uL (0.11-0.59); Monocytes % (auto) 11.2 %; Neutrophils # (auto) 6.35 K/uL (1.40-6.50); Neutrophils % (auto) 62.1 %; Platelet Count 211 K/uL (130-400); RDW Coefficient of Variation 11.8 % (11.5-14.5); RDW Standard Deviation 39.6 fL (36.4-46.3); Red Blood Count 3.51 M/uL (4.70-6.10); White Blood Count 10.22 K/ul (4.8-10.8)
[2022-10-06] MEDS: ASPIRIN 81 MG ECTAB PO SCH (08:21)
[2022-10-06] MEDS: CYANOCOBALAMIN (B-12) 500 MCG TABLET PO SCH (08:23)
[2022-10-06] MEDS: carvediloL 3.125 MG TAB PO SCH ×2 (08:23→20:14)
[2022-10-06] MEDS: MULTIVITAMIN TAB PO SCH (08:25)
[2022-10-06] MEDS: ENALAPRIL MALEATE 10 MG TAB PO SCH ×2 (08:25→20:14)
[2022-10-06] MEDS: dexAMETHasone 6 MG in SYRINGE 0 ML IV SCH (08:27)
--- NOTE | 2022-10-06 08:36 | Orthopedic Progress Note ---
Date of Service October 06, 2022 Assessment & Plan (1) Spinal stenosis, lumbar region with neurogenic claudication: Plan: Will initiate physical therapy this morning monitor his KEERTHI output hopefully discharge home in the next few days. Admission and Anticipated Discharge Date Admission Date: October 05, 2022 Subjective Back pain controlled leg pain improved Physical Exam Physical Exam: Patient is currently in bed. Is constricted testing. Appears comfortable. Results & Data Vital Signs (Past 12 Hours) Vital Signs Temp Pulse Pulse Resp BP Pulse Ox O2 Del Method 10/06/22 07:22 36.8 C 80 16 94/60 L 97 Room Air 10/06/22 03:19 36.5 C 75 16 104/63 97 Room Air 10/05/22 23:20 36.6 C 88 16 111/66 96 Room Air 10/05/22 21:17 92 H 104/71 98 Nasal Cannula O2 Flow Rate 10/06/22 07:22 10/06/22 03:19 10/05/22 23:20 10/05/22 21:17 3
[2022-10-06 08:40] LABS: BUN Creatinine Ratio 15.7 (10-20); Calcium 7.9 mg/dl (8.6-10.3); Creatinine Clr Calc Pharmacy 99.8 ml/min; Est GFR (African American) 104.7 ml/min; Est GFR (Non-African American) 90.4 ml/min; Potassium 4.4 mmol/L (3.5-5.1)
--- NOTE | 2022-10-06 09:00 | Hospitalist Progress Note ---
Date of Service October 06, 2022 Assessment & Plan (1) S/P spinal surgery: (2) Acute hyponatremia: (3) SIADH (syndrome of inappropriate ADH production): Plan: Acute hyponatremia likely related to SIADH in post operative setting. He is asymptomatic and tolerating PO. Pain and nausea appears to be limited. He is taking carbamazepine and in post op setting this may cause SIADH. Uncertain why he is being given 600mg qHS when home dose is 400mg hs. Will decrease to home dose now. Free water restriction. NSS overnight with Na trend. Consult nephrology. (4) Spinal stenosis, lumbar region with neurogenic claudication: Plan: Post op day# 1 S/P T12-L2 decompression and fusion by Dr Vivienne LAY#200 ml Pain management per ortho Wound management per ortho PT/OT as appropriate DVT prophylaxis per ortho Incentive spirometry Monitor H&H for acute blood loss anemia; pre-op Hgb: 14.6, post op 11.2 Expected post op anemia (5) CAD (coronary artery disease): Plan: chronic, stable H/O STEMI, S/P stent RCA & right PDA in 2014 Hold plavix, resume per ortho spine Continue aspirin, atorvastatin, carvedilol, ramipril (6) Seizure disorder: Plan: Continue lamotrigine, Tegretol Would recommend avoiding tramadol as this may lower the seizure threshold. DVT Prophylaxis SCDs Disposition per primary service Follows with Dr Cali in [place] for routine care Bina Eugene DO [facility] Hospitalist Admission and Anticipated Discharge Date Admission Date: October 05, 2022 Subjective 62 yo M s/o lumbar surgery POD #1 doing well ambulating around room independently KEERTHI drain in place tolerating PO-asking for advanced diet no BM yet but he is passing gas Review of Systems 2 Review of Systems: All systems were reviewed and negative except as indicated on HPI above. Physical Exam Physical Exam: CONSTITUTIONAL: WNWD, vitals as above, generally well-appearing, NAD EYES: normal conjunctivae, no scleral icterus ENT: external ear and nose normal, MMM NECK: trachea midline RESPIRATORY: clear to auscultation bilaterally, no crackles, rales or wheezes, normal respiratory effort CARDIOVASCULAR: regular rate and rhythm, S1 and 2 heard without murmurs, gallops or rubs, no JVD, no peripheral edema CHEST: inspection of chest was normal GASTROINTESTINAL: soft, nontender, ND, no guarding MUSCULOSKELETAL: strength 5/5 throughout, head is normocephalic and atraumatic SKIN: warm and dry NEUROLOGIC: CN 2-12 grossly intact, no sensory deficit, normal cognition, normal speech, no tremor PSYCHIATRIC: alert cooperative and oriented to person, place and time. Euthymic mood, makes good eye contact, language grossly intact, recent and remote memory grossly intact. Results & Data Results & Data Vital Signs (Past 12 Hours) Vital Signs Temp Pulse Pulse Resp BP Pulse Ox O2 Del Method 10/06/22 07:22 36.8 C 80 16 94/60 L 97 Room Air 10/06/22 03:19 36.5 C 75 16 104/63 97 Room Air 10/05/22 23:20 36.6 C 88 16 111/66 96 Room Air 10/05/22 21:17 92 H 104/71 98 Nasal Cannula O2 Flow Rate 10/06/22 07:22 10/06/22 03:19 10/05/22 23:20 10/05/22 21:17 3 Laboratory Results Short CBC 10/06/22 Range/Units 07:18 WBC 10.22 (4.8-10.8) K/ul Hgb 11.2 L (14.0-18.0) g/dl Hct 32.4 L (42.0-52.0) % Plt Count 211 (130-400) K/uL BMP 10/06/22 07:18 Sodium 127 L Potassium 4.4 Chloride 95 L Carbon Dioxide 27 BUN 14 Creatinine 0.89 Glucose 104 H Calcium 7.9 L Urine 10/05/22 Range/Units 21:00 Urine Color Yellow Urine Appearance Clear (Clear) Urine pH 6.0 (4.5-7.5) Ur Specific [place] 1.016 (1.000-1.030) Urine Protein Negative (Negative) Urine Glucose (UA) 3+ H (Negative) Medications Administered Current Inpatient Medications Acetaminophen (Acetaminophen 500 Mg Tab) 1,000 mg PO Q8H PRN PRN Reason: MILD Pain Scale 1,2,3 & Pre PT Stop: 11/04/22 16:29 Al Hydrox/Mg Hydrox/Simethicone (Aluminum/Magnesium Susp 30 Ml Udc) 30 ml PO Q6H PRN PRN Reason: Dyspepsia Stop: 11/04/22 16:29 Aspirin (Aspirin 81 Mg Ectab) 81 mg PO QAM [facility] Stop: 11/05/22 08:59 Last Admin: 10/06/22 08:21 Dose: 81 mg Atorvastatin Calcium (Atorvastatin 40 Mg Tab) 40 mg PO HS [facility] Stop: 11/04/22 20:59 Last Admin: 10/05/22 21:21 Dose: 40 mg Bisacodyl (Bisacodyl 10 Mg Supp) 10 mg [place] DAILY PRN PRN Reason: Constipation Stop: 11/04/22 16:29 Carbamazepine (Carbamazepine 200 Mg Tabcr) 400 mg PO QAM [facility] Stop: 11/05/22 08:59 Last Admin: 10/06/22 08:22 Dose: 400 mg Carbamazepine (Carbamazepine 200 Mg Tabcr) 600 mg PO [facility] Stop: 11/04/22 20:59 Last Admin: 10/05/22 21:21 Dose: 600 mg Carvedilol (Carvedilol 3.125 Mg Tab) 3.125 mg PO BID [facility] Stop: 11/04/22 20:59 Last Admin: 10/06/22 08:23 Dose: Not Given Cyanocobalamin (Cyanocobalamin (B-12) 500 Mcg Tablet) 1,000 mcg PO QAM [facility] Stop: 11/05/22 08:59 Last Admin: 10/06/22 08:23 Dose: 1,000 mcg Diphenhydramine HCl (Diphenhydramine Capsule 25 Mg Cap) 25 mg PO Q6H PRN PRN Reason: Allergic Rhinitis/Insomnia Stop: 11/04/22 16:29 Enalapril Maleate (Enalapril Maleate 10 Mg Tab) 10 mg PO BID [facility] Stop: 11/04/22 20:59 Last Admin: 10/06/22 08:25 Dose: Not Given Famotidine (Famotidine 20 Mg Tab) 20 mg PO Q12H PRN PRN Reason: Dyspepsia Stop: 11/04/22 16:29 Hydromorphone HCl (Hydromorphone Inj 0.5 Mg/0.5 Ml Syr) 0.5 mg IV Q3H PRN PRN Reason: MODERATE Pain (Scale 4,5,6) & Pre PT Stop: 10/19/22 16:29 Hydromorphone HCl (Hydromorphone Inj 1 Mg/Ml Syringe) 1 mg IV Q3H PRN PRN Reason: SEVERE Pain (Scale 7,8,9,10) Stop: 10/19/22 16:29 Last Admin: 10/06/22 06:23 Dose: 1 mg Hydroxyzine HCl (Hydroxyzine Hcl 25 Mg Tab) 25 mg PO Q8H PRN PRN Reason: Anxiety Stop: 11/04/22 16:29 Lactated Ringer's (Lr) 1,000 mls @ 150 mls/hr IV .Q6H40M [facility] Stop: 11/04/22 16:29 Last Admin: 10/06/22 06:25 Dose: 150 mls/hr Promethazine HCl 12.5 mg/ (Sodium Chloride) 50.5 mls @ 202 mls/hr IV Q6H PRN PRN Reason: Nausea &/or Vomiting Stop: 11/04/22 16:29 Acetaminophen (Ofirmev) 1,000 mg in 100 mls @ 400 mls/hr IV Q8H PRN PRN Reason: Pain Rating 1-3 & Pre PT Stop: 10/06/22 16:31 Dexamethasone 6 mg/ Syringe 1.5 mls @ 1 mls/min IV DAILY [facility] Stop: 10/08/22 09:02 Last Admin: 10/06/22 08:27 Dose: 1 mls/min Influenza Virus Vaccine Quadrival (Do Not Administer Flu Vaccine) 1 each N/A PRN PRN PRN Reason: Notification Stop: 11/04/22 16:29 Lamotrigine (Lamotrigine Er 300mg Tab) 1 each PO HS [facility] Stop: 11/04/22 20:59 Last Admin: 10/05/22 21:21 Dose: 1 each Lorazepam (Lorazepam 0.5 Mg Tab) 0.5 mg PO Q8H PRN PRN Reason: Sedation/Anxiety Stop: 11/04/22 16:29 Lorazepam (Lorazepam 2 Mg/1 Ml Vial) 0.5 mg IV Q8H PRN PRN Reason: Sedation/Anxiety Stop: 11/04/22 16:29 Magnesium Hydroxide (Magnesium Hydroxide Susp 30 Ml Udc) 30 ml PO Q24H PRN PRN Reason: Constipation Stop: 11/04/22 16:29 Metoclopramide HCl (Metoclopramide Hcl Inj 5 Mg/Ml 2 Ml Vial) 10 mg IV Q6H PRN PRN Reason: Nausea &/or Vomiting Stop: 11/04/22 16:29 Multivitamins (Multivitamin Tab) 1 tab PO QAM [facility] Stop: 11/05/22 08:59 Last Admin: 10/06/22 08:25 Dose: 1 tab Naloxone HCl (Naloxone Hcl 0.4 Mg/1 Ml Vial/Carp) 0.1 mg IV Q5M PRN PRN Reason: Oversedation/Resp depression Stop: 11/04/22 16:29 Ondansetron HCl (Ondansetron Inj 2 Mg/Ml 2 Ml Vial) 4 mg IV Q6H PRN PRN Reason: Nausea &/or Vomiting Stop: 11/04/22 16:29 Ondansetron HCl (Ondansetron 4 Mg Od Tab) 4 mg PO Q6H PRN PRN Reason: Nausea Stop: 11/04/22 16:29 Oxycodone HCl (Oxycodone Hcl Ir 5 Mg Tab (Immediate Release)) 5 - 10 mg PO Q4H PRN PRN Reason: Pain & Pre PT Stop: 10/19/22 16:29 Pneumococcal Polyvalent Vaccine (Do Not Administer Pneumococcal Vaccine) 1 each N/A PRN PRN PRN Reason: Notification Stop: 11/04/22 16:29 Polyethylene Glycol (Polyethylene (Miralax) 17 Gm Pack) 17 gm PO Q6 [facility] Stop: 11/05/22 05:59 Last Admin: 10/06/22 06:25 Dose: 17 gm Senna/Docusate Sodium (Docusate Sodium/Senna 50/8.6mg Tab) 2 tab PO HS [facility] Stop: 11/04/22 20:59 Last Admin: 10/05/22 21:20 Dose: 2 tab Sodium Biphosphate/Sodium Phosphate (Sod Phosphate/Sod Biphosphate Enema 132 Ml Btl) 132 ml [place] ONE PRN PRN Reason: Constipation Stop: 11/04/22 16:29
[2022-10-06 11:09] LABS: Appearance Urine Clear (Clear); Bacteria Urine Automated Negative (Negative); Bilirubin Urine Negative (Negative); Blood Urine Negative (Negative); Color Urine Dark Yellow; Epithelial Cell Urine Auto 20-30 /lpf (0-5); Glucose Urine UA Negative (Negative); Ketones Urine Trace (Negative); Leukocyte Esterase Urine 1+ (Negative); Nitrite Urine Negative (Negative); Protein Urine Trace (Negative); RBC Urine Automated 0-4 /hpf (0-4); Specific Gravity Urine 1.028 (1.000-1.030); Urobilinogen Urine Negative (Negative)
[2022-10-06 12:32] LABS: Creatinine Urine Random 191.3 mg/dl
[2022-10-06 17:51] LABS: BUN Creatinine Ratio 17.7 (10-20); Calcium 8.1 mg/dl (8.6-10.3); Creatinine Clr Calc Pharmacy 112.4 ml/min; Est GFR (Non-African American) 94.9 ml/min; Potassium 4.3 mmol/L (3.5-5.1)
[2022-10-06] MEDS: ATORVASTATIN 40 MG TAB PO SCH (20:14)
[2022-10-06] MEDS: LAMOTRIGINE 300 MG PO SCH (20:14)
[2022-10-06] MEDS: DOCUSATE SODIUM/SENNA 50/8.6MG TAB PO SCH (20:14)
[2022-10-06] MEDS ORDERED: SODIUM CHLORIDE 0.9% 1000ML 1,000 ML IV SCH (21:45)
[2022-10-06 23:34] LABS: BUN Creatinine Ratio 17.1 (10-20); Calcium 7.8 mg/dl (8.6-10.3); Creatinine Clr Calc Pharmacy 108.3 ml/min; Est GFR (African American) 108.3 ml/min; Est GFR (Non-African American) 93.5 ml/min; Potassium 4.2 mmol/L (3.5-5.1)
[2022-10-07 03:56] LABS: Basophils # (auto) 0.04 K/uL (0-0.2); Basophils % (auto) 0.4 %; Eosinophils # (auto) 0.05 K/uL (0-0.50); Eosinophils % (auto) 0.5 %; Hematocrit (blood only) 28.9 % (42.0-52.0); Hemoglobin 10.3 g/dl (14.0-18.0); Immature Granulocytes # (auto) 0.05 K/uL (0.01-0.20); Immature Granulocytes % (auto) 0.5 %; Lymphocytes # (auto) 2.13 K/uL (1.2-3.4); Lymphocytes % (auto) 21.5 %; Mean Corpuscular Hemoglobin 32.1 pg (25.0-34.0); Mean Corpuscular Hgb Conc 35.6 g/dL (32.0-36.0); Mean Platelet Volume 8.6 fL (9.4-12.4); Monocytes # (auto) 1.32 K/uL (0.11-0.59); Monocytes % (auto) 13.3 %; Neutrophils # (auto) 6.34 K/uL (1.40-6.50); Neutrophils % (auto) 63.8 %; Platelet Count 173 K/uL (130-400); RDW Coefficient of Variation 11.7 % (11.5-14.5); RDW Standard Deviation 37.9 fL (36.4-46.3); Red Blood Count 3.21 M/uL (4.70-6.10); White Blood Count 9.93 K/ul (4.8-10.8)
[2022-10-07 04:09] LABS: BUN Creatinine Ratio 16.9 (10-20); Calcium 7.5 mg/dl (8.6-10.3); Est GFR (African American) 107.8 ml/min; Potassium 4.3 mmol/L (3.5-5.1)
[2022-10-07] MEDS ORDERED: FUROSEMIDE INJ 20 MG/2 ML VIAL IV ONE (04:30)
[2022-10-07] MEDS ORDERED: PROMETHAZINE HCL 12.5 MG in SODIUM CHLORIDE 0.9% 50 ML IV STA (05:03)
[2022-10-07] MEDS: HYDROmorphone INJ 1 MG/ML SYRINGE IV PRN (05:20)
[2022-10-07] MEDS: POLYETHYLENE (MIRALAX) 17 GM PACK PO SCH ×3 (05:49→17:51)
[2022-10-07] MEDS ORDERED: LORazepam 2 MG/1 ML VIAL IV PRN (06:17)
[2022-10-07] MEDS ORDERED: LORazepam 0.5 MG TAB PO PRN (06:17)
--- NOTE | 2022-10-07 06:50 | Communication Note ---
Date of Service: October 07, 2022 4 AM Serum sodium 123 since yesterday afternoon despite IV fluid Serum carbamazepine level 12.6 Total of 3284 mL of crystalloid IVF in the last 24 hours as per RN. Later noted to have nausea, vomiting symptoms without abdominal pain as per RN. AP Acute on chronic hyponatremia Slightly supratherapeutic carbamazepine level Hx SIADH Stop IVF Lasix 1 dose now Continue fluid restriction orders Continue to hold Tegretol and recheck level tomorrow Await nephrology input.
--- NOTE | 2022-10-07 07:40 | XRay Report ---
SINGLE VIEW CHEST CLINICAL HISTORY: Hyponatremia FINDINGS: An AP, portable, upright chest radiograph is compared to study dated 09/14/2022. The heart a ppears enlarged. The pulmonary vasculature is noncongested. Chronic interstitial thickening is simila r to previous. There is bibasilar scarring/atelectasis. The lungs and pleural spaces are otherwise cl ear. No pneumothorax is seen. The skeletal structures are osteopenic. The bony thorax is grossly inta ct. There is degenerative change and scoliosis noted in the spine. Thoracolumbar spinal rods are in p lace. IMPRESSION: No active disease in the chest. ACT 112: Negative or not required by law. Electronically signed by: Naeem Dominguez M.D. 10/07/2022 7:39 AM
--- NOTE | 2022-10-07 08:34 | Hospitalist Progress Note ---
Date of Service October 07, 2022 Assessment & Plan (1) S/P spinal surgery: (2) Acute hyponatremia: Plan: Symptoms of nausea reportedly developed overnight. Na remained low but stable at 123 overnight. Fluid restriction in place. Was more euvolemic yesterday but not he is hypotensive. Giving a bolus of NSS now. Fluids were held overnight. He required two doses of hydromorphone 1mg IV overnight for uncontrolled pain. He continues to have nausea, all which are contributing to lowering the Na. Carbamazepine held with level ordered. Discussed the case with nephrology who is seeing him for this issue this morning. (3) SIADH (syndrome of inappropriate ADH production): Plan: Acute hyponatremia likely related to SIADH in post operative setting. He is asymptomatic and tolerating PO. Pain and nausea present as noted above. He is taking carbamazepine and in post op setting this may cause SIADH. Uncertain why he is being given 600mg qHS when home dose is 400mg hs. Confirmed with patient his correct dose, and elevated dose last evening likely resulted in some of the symptoms this morning. I did contact poison control center in [place] about the situation. Tegretol level is 12.6 with high end of reference range 12. Consumer Insight Manager reports they wouldn't expect this to be contributing much to his symptoms, however, patient has been on this medication for many years and states it can make him sick like this. They state it is fine to continue dosing which we will do this morning. Cont with Lasix per nephrology with goal Na129 or less by this afternoon. Transfer to PCU for closer monitoring. (4) Spinal stenosis, lumbar region with neurogenic claudication: Plan: Post op day# 2 S/P T12-L2 decompression and fusion by Dr Vivienne LAY#200 ml Regarding pain management, he hasn't been given any tylenol and apparently needed hydropmorphone in higher doses overnight. Added scheduled Tylenol IV (pt vomiting) for now to stay ahead of pain Wound management per ortho PT/OT as appropriate DVT prophylaxis per ortho Incentive spirometry Monitor H&H for acute blood loss anemia; pre-op Hgb: 14.6, post op 11.2-->10.3 today Expected post op anemia (5) CAD (coronary artery disease): Plan: chronic, stable H/O STEMI, S/P stent RCA & right PDA in 2014 Hold plavix, resume per ortho spine Continue aspirin, atorvastatin, carvedilol, ramipril (6) Seizure disorder: Plan: Continue lamotrigine, Tegretol held in setting of hyponatremia. Tegretol level is pending. Will restart this afternoon as long as level is not exhibiting toxicity. Would recommend avoiding tramadol for pain as this may lower the seizure threshold. DVT Prophylaxis SCDs Disposition per primary service Follows with Dr Cali in [place] for routine care I spent a total of60 minutes coordinating, documenting, and providing care for this patient excluding time spent in the performance of separately billed services Bnia Eugene DO [facility] and Anticipated Discharge Date Admission Date: October 05, 2022 Subjective 62 yo M s/o lumbar surgery POD #2 More nauseous this morning, feeling ill We discussed that he was given 600mg of carbamazepine last evening Typically he takes 400mg BID He agreed that will typically make him nauseous He was also given two doses of hydromorphone 1mg pushes which can contribute to nasuea Na remained 123 overnight Given Lasix 20mg IV around 0400 this am. As he was more hypotensive this am, giving a small bolus of fluid Discussed with nephrology and will continue with the lasix today for goal Na 129 or less He was transferred to PCU for closer monitoring during this time. Dr. Palafox was updated at the bedside Patient's , Denisse, was updated by phone and verbalized understanding of the plan. Review of Systems Review of Systems: All systems were reviewed and negative except as indicated on HPI above. Physical Exam Physical Exam: CONSTITUTIONAL: WNWD, vitals as above, generally well-appearing, NAD EYES: normal conjunctivae, no scleral icterus ENT: external ear and nose normal, MMM NECK: trachea midline RESPIRATORY: clear to auscultation bilaterally, no crackles, rales or wheezes, normal respiratory effort CARDIOVASCULAR: regular rate and rhythm, S1 and 2 heard without murmurs, gallops or rubs, no JVD, no peripheral edema CHEST: inspection of chest was normal GASTROINTESTINAL: soft, generalized tenderness after vomiting, ND, no guarding MUSCULOSKELETAL: strength 5/5 throughout, head is normocephalic and atraumatic SKIN: warm and dry NEUROLOGIC: CN 2-12 grossly intact, no sensory deficit, normal cognition, normal speech, no tremor PSYCHIATRIC: alert cooperative and oriented to person, place and time. Euthymic mood, makes good eye contact, language grossly intact, recent and remote memory grossly intact. Results & Data Results & Data Vital Signs (Past 12 Hours) Vital Signs Temp Pulse Resp BP Pulse Ox O2 Del Method 10/07/22 08:20 37.0 C 81 17 93/59 L 99 Room Air 10/07/22 06:12 36.8 C 85 16 120/64 95 Room Air 10/07/22 05:22 37.0 C 89 16 145/73 H 92 Room Air Laboratory Results Short CBC 10/07/22 Range/Units 03:37 WBC 9.93 (4.8-10.8) K/ul Hgb 10.3 L (14.0-18.0) g/dl Hct 28.9 L (42.0-52.0) % Plt Count 173 (130-400) K/uL BMP 10/06/22 10/06/22 10/06/22 07:18 16:54 22:40 Sodium 127 L 123 L 123 L Potassium 4.4 4.3 4.2 Chloride 95 L 93 L 92 L Carbon Dioxide 27 24 25 BUN 14 14 14 Creatinine 0.89 0.79 0.82 Glucose 104 H 113 H 104 H Calcium 7.9 L 8.1 L 7.8 L 10/07/22 03:37 Sodium 123 L Potassium 4.3 Chloride 94 L Carbon Dioxide 26 BUN 14 Creatinine 0.83 Glucose 108 H Calcium 7.5 L Urine 10/06/22 Range/Units 10:46 Urine Color Dark Yellow Urine Appearance Clear (Clear) Urine pH 6.0 (4.5-7.5) Ur Specific [place] 1.028 (1.000-1.030) Urine Protein Trace H (Negative) Urine Glucose (UA) Negative (Negative) Diagnostic Findings Chest X-Ray 10/07/22 04:30 SINGLE VIEW CHEST CLINICAL HISTORY: Hyponatremia FINDINGS: An AP, portable, upright chest radiograph is compared to study dated 09/14/2022. The heart appears enlarged. The pulmonary vasculature is noncongested. Chronic interstitial thickening is similar to previous. There is bibasilar scarring/atelectasis. The lungs and pleural spaces are otherwise clear. No pneumothorax is seen. The skeletal structures are osteopenic. The bony thorax is grossly intact. There is degenerative change and scoliosis noted in the spine. Thoracolumbar spinal rods are in place. IMPRESSION: No active disease in the chest. ACT 112: Negative or not required by law. Electronically signed by: Naeem Dominguez M.D. 10/07/2022 7:39 AM Medications Administered Current Inpatient Medications Acetaminophen (Acetaminophen 500 Mg Tab) 1,000 mg PO Q8H PRN PRN Reason: MILD Pain Scale 1,2,3 & Pre PT Stop: 11/04/22 16:29 Al Hydrox/Mg Hydrox/Simethicone (Aluminum/Magnesium Susp 30 Ml Udc) 30 ml PO Q6H PRN PRN Reason: Dyspepsia Stop: 11/04/22 16:29 Aspirin (Aspirin 81 Mg Ectab) [facility] [place] Stop: 11/05/22 08:59 Last Admin: 10/06/22 08:21 Dose: 81 mg Atorvastatin Calcium (Atorvastatin 40 Mg Tab) 40 mg PO HS [facility] Stop: 11/04/22 20:59 Last Admin: 10/06/22 20:14 Dose: 40 mg Bisacodyl (Bisacodyl 10 Mg Supp) 10 mg IA DAILY PRN PRN Reason: Constipation Stop: 11/04/22 16:29 Carbamazepine (Carbamazepine 200 Mg Tabcr) 400 mg PO BID [facility] Stop: 11/06/22 08:59 Carvedilol (Carvedilol 3.125 Mg Tab) 3.125 mg PO BID [facility] Stop: 11/04/22 20:59 Last Admin: 10/06/22 20:14 Dose: 3.125 mg Cyanocobalamin (Cyanocobalamin (B-12) 500 Mcg Tablet) 1,000 mcg PO QAM [facility] Stop: 11/05/22 08:59 Last Admin: 10/06/22 08:23 Dose: 1,000 mcg Diphenhydramine HCl (Diphenhydramine Capsule 25 Mg Cap) 25 mg PO Q6H PRN PRN Reason: Allergic Rhinitis/Insomnia Stop: 11/04/22 16:29 Enalapril Maleate (Enalapril Maleate 10 Mg Tab) 10 mg PO BID [facility] Stop: 11/04/22 20:59 Last Admin: 10/06/22 20:14 Dose: 10 mg Famotidine (Famotidine 20 Mg Tab) 20 mg PO Q12H PRN PRN Reason: Dyspepsia Stop: 11/04/22 16:29 Hydromorphone HCl (Hydromorphone Inj 0.5 Mg/0.5 Ml Syr) 0.5 mg IV Q3H PRN PRN Reason: MODERATE Pain (Scale 4,5,6) & Pre PT Stop: 10/19/22 16:29 Hydromorphone HCl (Hydromorphone Inj 1 Mg/Ml Syringe) 1 mg IV Q3H PRN PRN Reason: SEVERE Pain (Scale 7,8,9,10) Stop: 10/19/22 16:29 Last Admin: 10/07/22 05:20 Dose: 1 mg Hydroxyzine HCl (Hydroxyzine Hcl 25 Mg Tab) 25 mg PO Q8H PRN PRN Reason: Anxiety Stop: 11/04/22 16:29 Promethazine HCl 12.5 mg/ (Sodium Chloride) 50.5 mls @ 202 mls/hr IV Q6H PRN PRN Reason: Nausea &/or Vomiting Stop: 11/04/22 16:29 Dexamethasone 6 mg/ Syringe 1.5 mls @ 1 mls/min IV DAILY [facility] Stop: 10/08/22 09:02 Last Admin: 10/06/22 08:27 Dose: 1 mls/min Sodium Chloride (Nss 1000ml) 1,000 mls @ 999 mls/hr IV .Q1H1M ONE Stop: 10/07/22 09:35 Influenza Virus Vaccine Quadrival (Do Not Administer Flu Vaccine) 1 each N/A PRN PRN PRN Reason: Notification Stop: 11/04/22 16:29 Lamotrigine (Lamotrigine Er 300mg Tab) 1 each PO HS [facility] Stop: 11/04/22 20:59 Last Admin: 10/06/22 20:14 Dose: 1 each Lorazepam (Lorazepam 0.5 Mg Tab) 0.5 mg PO Q8H PRN PRN Reason: Anxiety Stop: 11/04/22 16:29 Lorazepam (Lorazepam 2 Mg/1 Ml Vial) 0.5 mg IV Q8H PRN PRN Reason: Anxiety Stop: 11/04/22 16:29 Magnesium Hydroxide (Magnesium Hydroxide Susp 30 Ml Udc) 30 ml PO Q24H PRN PRN Reason: Constipation Stop: 11/04/22 16:29 Metoclopramide HCl (Metoclopramide Hcl Inj 5 Mg/Ml 2 Ml Vial) 10 mg IV Q6H PRN PRN Reason: Nausea &/or Vomiting Stop: 11/04/22 16:29 Multivitamins (Multivitamin Tab) 1 tab PO QAM [facility] Stop: 11/05/22 08:59 Last Admin: 10/06/22 08:25 Dose: 1 tab Naloxone HCl (Naloxone Hcl 0.4 Mg/1 Ml Vial/Carp) 0.1 mg IV Q5M PRN PRN Reason: Oversedation/Resp depression Stop: 11/04/22 16:29 Ondansetron HCl (Ondansetron Inj 2 Mg/Ml 2 Ml Vial) 4 mg IV Q6H PRN PRN Reason: Nausea &/or Vomiting Stop: 11/04/22 16:29 Ondansetron HCl (Ondansetron 4 Mg Od Tab) 4 mg PO Q6H PRN PRN Reason: Nausea Stop: 11/04/22 16:29 Oxycodone HCl (Oxycodone Hcl Ir 5 Mg Tab (Immediate Release)) 5 - 10 mg PO Q4H PRN PRN Reason: Pain & Pre PT Stop: 10/19/22 16:29 Pneumococcal Polyvalent Vaccine (Do Not Administer Pneumococcal Vaccine) 1 each N/A PRN PRN PRN Reason: Notification Stop: 11/04/22 16:29 Polyethylene Glycol (Polyethylene (Miralax) 17 Gm Pack) 17 gm PO Q6 [facility] Stop: 11/05/22 05:59 Last Admin: 10/07/22 05:49 Dose: Not Given Senna/Docusate Sodium (Docusate Sodium/Senna 50/8.6mg Tab) 2 tab PO HS [facility] Stop: 11/04/22 20:59 Last Admin: 10/06/22 20:14 Dose: 2 tab Sodium Biphosphate/Sodium Phosphate (Sod Phosphate/Sod Biphosphate Enema 132 Ml Btl) 132 ml IA ONE PRN PRN Reason: Constipation Stop: 11/04/22 16:29
[2022-10-07] MEDS ORDERED: SODIUM CHLORIDE 0.9% 1000ML 1,000 ML IV ONE (08:35)
[2022-10-07] MEDS: ONDANSETRON INJ 2 MG/ML 2 ML VIAL IV PRN ×2 (09:09→18:02)
[2022-10-07] MEDS: ENALAPRIL MALEATE 10 MG TAB PO SCH (09:17)
[2022-10-07] MEDS: carvediloL 3.125 MG TAB PO SCH ×2 (09:17→21:31)
[2022-10-07] MEDS: dexAMETHasone 6 MG in SYRINGE 0 ML IV SCH (09:19)
[2022-10-07] MEDS: MULTIVITAMIN TAB PO SCH (09:24)
[2022-10-07] MEDS: ASPIRIN 81 MG ECTAB PO SCH ×2 (09:24→09:31)
[2022-10-07] MEDS: CYANOCOBALAMIN (B-12) 500 MCG TABLET PO SCH ×2 (09:24→09:31)
--- NOTE | 2022-10-07 09:27 | Orthopedic Progress Note ---
Date of Service October 07, 2022 Assessment & Plan (1) Spinal stenosis, lumbar region with neurogenic claudication: Plan: This point we will withhold physical therapy until he is medically stable. At that point I anticipate he will progress appropriately hopefully discharge home by the end of the weekend. Admission and Anticipated Discharge Date Admission Date: October 05, 2022 Subjective Patient struggling a bit this morning. He has been diagnosed with hyponatremia which is limiting his ability to ambulate safely today. Physical Exam Physical Exam: On exam he is alert and oriented. He is cooperative. His strength testing. Results & Data Vital Signs (Past 12 Hours) Vital Signs Temp Pulse Resp BP Pulse Ox O2 Del Method 10/07/22 08:52 86 132/73 10/07/22 08:20 37.0 C 81 17 93/59 L 99 Room Air 10/07/22 06:12 36.8 C 85 16 120/64 95 Room Air 10/07/22 05:22 37.0 C 89 16 145/73 H 92 Room Air
[2022-10-07] MEDS: ACETAMINOPHEN 1,000 MG/100 ML VIAL IV SCH ×2 (10:15→17:56)
[2022-10-07] MEDS ORDERED: FUROSEMIDE INJ 20 MG/2 ML VIAL IV SCH (12:00)
[2022-10-07] MEDS: UREA (UREA-NA) 15 GM PACK PO SCH ×2 (13:05→22:12)
--- NOTE | 2022-10-07 14:30 | Nephrology Consultation ---
Date of Consultation October 07, 2022 Assessment & Plan (1) Acute hyponatremia: Hyponatremia -likely 2/ to SIADH.He has been on Carbamezepine for many years which can cause SIADH. Also pain and nausea are non Osmotic stimulus for ADH Release. -His urine is very concentrated, He will likley take time before his sodium is in safe levels> 130.I would be comfortable with sodium in late 120's to early 130's. - start on Furosemide 20 mg IV TID with urea 30 mg BID Q4 Sodium until 130, q12 after that,target 122-128 until evening today> 135 until tmrw evening. - Control pain and nausea. - He will need OP Nephrology f/u in 2-3 weeks time with repeat BMP, Final recs regarding the diuretic and Urea will be given at the time of discharge. (2) S/P spinal surgery: History of Present Illness Reason for Consultation: Hyponatremia Attending Physician: Joe Palafox, History of Present Illness 62-year-old male with PMH CAD, STEMI s/p stent 2014, seizure disorder, s/p decompression and fusion T12-L2 He was received by the medical team post operatively for Hyponatremian( Na 127), he received Iv Fluids and his sodim dropped to 123 afetr which Fluids were stopped, Urine analysis was consitant with SIADH He has been on Carbmazepine for many years. On Review he was still c/o postop pain , but this has improved, Ocassional Na usea. Passing urine , renal fucntions are normal.No SOB and no extremity edema. Allergies Allergy/AdvReac Type Severity Reaction Status Date / Time Iodinated Contrast Media Allergy Severe SEE NOTES Verified 10/05/22 10:25 Home Medications Medication Instructions Recorded Confirmed Type aspirin 81 mg tablet,delayed 81 mg PO QAM 05/02/18 10/05/22 History release (Aspir-) atorvastatin 40 mg tablet 40 mg PO HS 05/02/18 10/05/22 History carvedilol 3.125 mg tablet (Coreg) 3.125 mg PO BID 05/02/18 10/05/22 History clopidogrel 75 mg tablet 75 mg PO QAM 05/02/18 10/05/22 History multivitamin (Multiple Vitamins 1 tab PO QAM 05/02/18 10/05/22 History tablet) ramipril 2.5 mg capsule (Altace) 2.5 mg PO BID 05/02/18 10/05/22 History lamotrigine 300 mg tablet,extended 300 mg PO HS 05/30/18 10/05/22 History release 24 hr (Lamictal XR) carbamazepine 200 mg 400 mg PO BID 12/24/21 10/05/22 History tablet,extended release,12 hr (Tegretol XR) cyanocobalamin (vitamin B-12) 1,000 mcg PO QAM 12/24/21 10/05/22 History 1,000 mcg capsule oxycodone 5 mg tablet 5 mg PO Q6H PRN pain #30 tabs 10/06/22 Rx tramadol 50 mg tablet 50 mg PO Q6H PRN pain, moderate 10/06/22 Rx #30 tabs Patient History Medical History Acid reflux 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 Ortiz/[facility] Degenerative disc disease Grand mal seizure disorder Pt unaware of when episodes occur as they happen when sleeping (no recent known episode) Follows with Dr. Cobian Myocardial Infarction 2014 Scoliosis Surgical History Fusion of spine L3-S1 decompression/fusion (05/28/18): Grade 1 view, MAC#3, ETT 8.0 at [facility]. No issues noted per post-op anesthesia progress note. 01/25/22 [facility] H/O inguinal hernia repair H/O sinus surgery H/O umbilical hernia repair History of appendectomy History of colonoscopy History of foot surgery RT/LEFT CYST REMOVED History of heart artery stent 2014 (stents x2) Family History Father Family history of lung cancer Other Aortic aneurysm Coronary heart disease No family history of adverse response to anesthesia Social History Smoking Status: Never smoker Second Hand Exposure: Yes (as a child); Do You Dip or Chew Tobacco: No; Hx Alcohol Use: No Hx Substance Use: No Preferred Language: Icelandic Communication Ability: Effective Communication Ability Comment: NO EYESIGHT RIGHT EYE Independent Beauty Consultant Required: No Beliefs That Will Affect Care: None marital status: Current Living Situation: Spouse Feels Safe at Home: Yes Safety Concerns: Feels Safe At This Time Assistive Devices: Walker Review of Systems Review of Systems: All systems reviewed & are unremarkable except as noted in HPI & below Physical Exam Physical Exam: CONSTITUTIONAL: Comfortable RESPIRATORY: clear to auscultation bilaterally, no crackles, rales or wheezes, normal respiratory effort CARDIOVASCULAR: regular rate and rhythm, S1 and 2 heard without murmurs, gallops or rubs, no JVD, no peripheral edema GASTROINTESTINAL: soft, nontender, ND, no guarding MUSCULOSKELETAL: NO edema SKIN: warm and dry Results & Data Vital Signs (Past 12 Hours) Vital Signs Temp Pulse Resp BP Pulse Ox O2 Del Method 10/07/22 11:00 36.8 C 78 18 135/83 93 Room Air 10/07/22 08:52 86 132/73 10/07/22 08:20 37.0 C 81 17 93/59 L 99 Room Air 10/07/22 06:12 36.8 C 85 16 120/64 95 Room Air 10/07/22 05:22 37.0 C 89 16 145/73 H 92 Room Air Laboratory Results 10/07/22 03:37 10/07/22 14:02
[2022-10-07] MEDS: FUROSEMIDE INJ 20 MG/2 ML VIAL IV SCH (20:13)
[2022-10-07] MEDS: DOCUSATE SODIUM/SENNA 50/8.6MG TAB PO SCH (21:31)
[2022-10-07] MEDS: SODIUM CHLORIDE 1 GM TABLET PO SCH (21:31)
[2022-10-07] MEDS: LAMOTRIGINE 300 MG PO SCH (21:32)
[2022-10-07] MEDS: ATORVASTATIN 40 MG TAB PO SCH (22:15)
[2022-10-08] MEDS: POLYETHYLENE (MIRALAX) 17 GM PACK PO SCH ×4 (00:21→17:58)
[2022-10-08] MEDS: ACETAMINOPHEN 1,000 MG/100 ML VIAL IV SCH ×3 (01:47→17:57)
[2022-10-08] MEDS: FUROSEMIDE INJ 20 MG/2 ML VIAL IV SCH ×3 (02:02→14:01)
[2022-10-08] MEDS: ONDANSETRON INJ 2 MG/ML 2 ML VIAL IV PRN (02:06)
[2022-10-08 06:06] LABS: Hematocrit (blood only) 28.9 % (42.0-52.0); Hemoglobin 10.6 g/dl (14.0-18.0); Mean Corpuscular Hemoglobin 31.9 pg (25.0-34.0); Mean Corpuscular Hgb Conc 36.7 g/dL (32.0-36.0); Platelet Count 202 K/uL (130-400); RDW Coefficient of Variation 11.5 % (11.5-14.5); RDW Standard Deviation 36.4 fL (36.4-46.3); Red Blood Count 3.32 M/uL (4.70-6.10); White Blood Count 9.07 K/ul (4.8-10.8)
[2022-10-08 06:23] LABS: Creatinine Clr Calc Pharmacy 118.4 ml/min; Est GFR (African American) 112.4 ml/min; Est GFR (Non-African American) 96.9 ml/min; Magnesium 1.7 mg/dl (1.7-2.4); Potassium 3.5 mmol/L (3.5-5.1)
--- NOTE | 2022-10-08 07:30 | Orthopedic Progress Note ---
Date of Service October 08, 2022 Assessment & Plan (1) Spinal stenosis, lumbar region with neurogenic claudication: Plan: Patient is doing well in terms of his lumbar surgery. His symptoms are improving. His sodium is increasing. They want to get him to a level greater than 130. We will continue with mobilization efforts and see him tomorrow morning to see how he is coming along. We will continue with GI DVT prophylaxis as well as pain control measures. Admission and Anticipated Discharge Date Admission Date: October 05, 2022 Subjective Patient was seen bedside in room 232. He was resting comfortably. He is not having any leg pain. His back is sore but controlled with pain medication. He has no complaints this morning. He denies any other numbness, tingling, or paresthesias. Physical Exam Physical Exam: On exam he is alert and oriented. His visual holt are grossly intact. His strength and sensation are both intact. His abdomen soft nontender his calves are supple nontender cardiovascular exam reveals no gross abnormalities. Results & Data Vital Signs (Past 12 Hours) Vital Signs Temp Pulse Pulse Pulse Resp BP BP 10/08/22 07:00 78 10/08/22 02:50 36.6 C 74 20 111/65 10/07/22 22:00 79 10/07/22 19:45 10/07/22 22:56 36.9 C 72 16 110/67 10/07/22 20:22 76 126/80 Pulse Ox O2 Del Method 10/08/22 07:00 10/08/22 02:50 96 Room Air 10/07/22 22:00 10/07/22 19:45 Room Air 10/07/22 22:56 97 Room Air 10/07/22 20:22
[2022-10-08] MEDS: ASPIRIN 81 MG ECTAB PO SCH (08:33)
[2022-10-08] MEDS: CYANOCOBALAMIN (B-12) 500 MCG TABLET PO SCH (08:33)
[2022-10-08] MEDS: carvediloL 3.125 MG TAB PO SCH ×2 (08:34→21:08)
[2022-10-08] MEDS: dexAMETHasone 6 MG in SYRINGE 0 ML IV SCH (08:34)
[2022-10-08] MEDS: SODIUM CHLORIDE 1 GM TABLET PO SCH ×4 (08:34→20:26)
[2022-10-08] MEDS: UREA (UREA-NA) 15 GM PACK PO SCH ×2 (08:34→20:25)
--- NOTE | 2022-10-08 09:35 | Hospitalist Progress Note ---
Date of Service October 08, 2022 Assessment & Plan (1) S/P spinal surgery: (2) Acute hyponatremia: Plan: Euvolemic, nausea has resolved. Continues on home dose carbamazepine for seizures which is 400mg PO BID. Cont treatment for SIADH including Lasix, salt tabs. Na 124 today with goal >130 prior to discharge. Appreciate continued nephrology recommendations. (3) Carbamazepine toxicity: Plan: Given a higher dose of this med (600mg) than he typically takes at home x 1, possibly contributing to his symptoms of nausea and illness based on his prior experience with this medication. Home dosage was corrected. Resolved. (4) SIADH (syndrome of inappropriate ADH production): Plan: Cont plan as noted above. (5) Spinal stenosis, lumbar region with neurogenic claudication: Plan: Post op day# 3 S/P T12-L2 decompression and fusion by Dr Vivienne LAY#200 ml Pain appears more controlled. Cont scheduled Tylenol. Wound management per ortho PT/OT as appropriate DVT prophylaxis per ortho Incentive spirometry Monitor H&H for anemia; stable Expected post op anemia (6) CAD (coronary artery disease): Plan: chronic, stable H/O STEMI, S/P stent RCA & right PDA in 2014 Hold plavix, resume per ortho spine Continue aspirin, atorvastatin, carvedilol, ramipril (7) Seizure disorder: Plan: Continue lamotrigine, Tegretol held in setting of hyponatremia. Tegretol level is pending. Will restart this afternoon as long as level is not exhibiting toxicity. Would recommend avoiding tramadol for pain as this may lower the seizure t hreshold. DVT Prophylaxis SCDs Disposition per primary service Follows with Dr Cali in [place] for routine care I spent a total of60 minutes coordinating, documenting, and providing care for this patient excluding time spent in the performance of separately billed services [facility]ina Eugene [facility] and Anticipated Discharge Date Admission Date: October 05, 2022 Subjective 62 yo M s/o lumbar surgery POD #3 nausea has resolved and pain seems more under control Had 1 BM Ambulating wtih walker around the floor Na still 124. Lasix 20mg IV increased to every 6 hours last night with addition of salt tabs. at bedside and updated. Review of Systems Review of Systems: All systems were reviewed and negative except as indicated on HPI above. Physical Exam Physical Exam: CONSTITUTIONAL: WNWD, vitals as above, generally well-appearing, NAD EYES: normal conjunctivae, no scleral icterus ENT: external ear and nose normal, MMM NECK: trachea midline RESPIRATORY: clear to auscultation bilaterally, no crackles, rales or wheezes, normal respiratory effort CARDIOVASCULAR: regular rate and rhythm, S1 and 2 heard without murmurs, gallops or rubs, no JVD, no peripheral edema CHEST: inspection of chest was normal GASTROINTESTINAL: soft, generalized tenderness after vomiting, ND, no guarding MUSCULOSKELETAL: strength 5/5 throughout, head is normocephalic and atraumatic, KEERTHI drain in place. SKIN: warm and dry NEUROLOGIC: CN 2-12 grossly intact, no sensory deficit, normal cognition, normal speech, no tremor PSYCHIATRIC: alert cooperative and oriented to person, place and time. Euthymic mood, makes good eye contact, language grossly intact, recent and remote memory grossly intact. Results & Data Results & Data Vital Signs (Past 12 Hours) Vital Signs Temp Pulse Pulse Pulse Resp BP Pulse Ox 10/08/22 07:08 36.6 C 71 18 117/70 96 10/08/22 07:00 78 10/08/22 02:50 36.6 C 74 20 111/65 96 10/07/22 22:00 79 10/07/22 22:56 36.9 C 72 16 110/67 97 O2 Del Method 10/08/22 07:08 Room Air 10/08/22 07:00 10/08/22 02:50 Room Air 10/07/22 22:00 10/07/22 22:56 Room Air Laboratory Results Short CBC 10/08/22 Range/Units 05:28 WBC 9.07 (4.8-10.8) K/ul Hgb 10.6 L (14.0-18.0) g/dl Hct 28.9 L (42.0-52.0) % Plt Count 202 (130-400) K/uL BMP 10/07/22 10/07/22 10/07/22 09:24 14:02 17:49 Sodium 122 L 122 L 121 L Potassium Chloride Carbon Dioxide BUN Creatinine Glucose Calcium 10/07/22 10/08/22 22:30 05:28 Sodium 123 L 124 L Potassium 3.5 Chloride 89 L Carbon Dioxide 29 BUN 15 Creatinine 0.75 Glucose 113 H Calcium 8.0 L Medications Administered Current Inpatient Medications Acetaminophen (Acetaminophen 500 Mg Tab) 1,000 mg PO Q8H PRN PRN Reason: MILD Pain Scale 1,2,3 & Pre PT Stop: 11/04/22 16:29 Al Hydrox/Mg Hydrox/Simethicone (Aluminum/Magnesium Susp 30 Ml Udc) 30 ml PO Q6H PRN PRN Reason: Dyspepsia Stop: 11/04/22 16:29 Aspirin (Aspirin 81 Mg Ectab) 81 mg PO QAM [facility] Stop: 11/05/22 08:59 Last Admin: 10/08/22 08:33 Dose: 81 mg Atorvastatin Calcium (Atorvastatin 40 Mg Tab) 40 mg PO HS [facility] Stop: 11/04/22 20:59 Last Admin: 10/07/22 22:15 Dose: 40 mg Bisacodyl (Bisacodyl 10 Mg Supp) 10 mg [place] DAILY PRN PRN Reason: Constipation Stop: 11/04/22 16:29 Carbamazepine (Carbamazepine 200 Mg Tabcr) 400 mg PO BID [facility] Stop: 11/06/22 08:59 Last Admin: 10/08/22 08:33 Dose: 400 mg Carvedilol (Carvedilol 3.125 Mg Tab) 3.125 mg PO BID [facility] Stop: 11/04/22 20:59 Last Admin: 10/08/22 08:34 Dose: 3.125 mg Cyanocobalamin (Cyanocobalamin (B-12) 500 Mcg Tablet) 1,000 mcg PO QAM [facility] Stop: 11/05/22 08:59 Last Admin: 10/08/22 08:33 Dose: 1,000 mcg Diphenhydramine HCl (Diphenhydramine Capsule 25 Mg Cap) 25 mg PO Q6H PRN PRN Reason: Allergic Rhinitis/Insomnia Stop: 11/04/22 16:29 Famotidine (Famotidine 20 Mg Tab) 20 mg PO Q12H PRN PRN Reason: Dyspepsia Stop: 11/04/22 16:29 Furosemide (Furosemide Inj 20 Mg/2 Ml Vial) 20 mg IV Q6H [facility] Stop: 11/06/22 19:59 Last Admin: 10/08/22 08:33 Dose: 20 mg Hydromorphone HCl (Hydromorphone Inj 0.5 Mg/0.5 Ml Syr) 0.5 mg IV Q3H PRN PRN Reason: MODERATE Pain (Scale 4,5,6) & Pre PT Stop: 10/19/22 16:29 Hydroxyzine HCl (Hydroxyzine Hcl 25 Mg Tab) 25 mg PO Q8H PRN PRN Reason: Anxiety Stop: 11/04/22 16:29 Promethazine HCl 12.5 mg/ (Sodium Chloride) 50.5 mls @ 202 mls/hr IV Q6H PRN PRN Reason: Nausea &/or Vomiting Stop: 11/04/22 16:29 Acetaminophen (Ofirmev) 1,000 mg in 100 mls @ 400 mls/hr IV Q8H [facility] Stop: 10/10/22 09:44 Last Infusion: 10/08/22 02:02 Dose: Infused Influenza Virus Vaccine Quadrival (Do Not Administer Flu Vaccine) 1 each N/A PRN PRN PRN Reason: Notification Stop: 11/04/22 16:29 Lamotrigine (Lamotrigine Er 300mg Tab) 1 each PO HS [facility] Stop: 11/04/22 20:59 Last Admin: 10/07/22 21:32 Dose: 1 each Lorazepam (Lorazepam 0.5 Mg Tab) 0.5 mg PO Q8H PRN PRN Reason: Anxiety Stop: 11/04/22 16:29 Lorazepam (Lorazepam 2 Mg/1 Ml Vial) 0.5 mg IV Q8H PRN PRN Reason: Anxiety Stop: 11/04/22 16:29 Magnesium Hydroxide (Magnesium Hydroxide Susp 30 Ml Udc) 30 ml PO Q24H PRN PRN Reason: Constipation Stop: 11/04/22 16:29 Metoclopramide HCl (Metoclopramide Hcl Inj 5 Mg/Ml 2 Ml Vial) 10 mg IV Q6H PRN PRN Reason: Nausea &/or Vomiting Stop: 11/04/22 16:29 Naloxone HCl (Naloxone Hcl 0.4 Mg/1 Ml Vial/Carp) 0.1 mg IV Q5M PRN PRN Reason: Oversedation/Resp depression Stop: 11/04/22 16:29 Ondansetron HCl (Ondansetron Inj 2 Mg/Ml 2 Ml Vial) 4 mg IV Q6H PRN PRN Reason: Nausea &/or Vomiting Stop: 11/04/22 16:29 Last Admin: 10/08/22 02:06 Dose: 4 mg Ondansetron HCl (Ondansetron 4 Mg Od Tab) 4 mg PO Q6H PRN PRN Reason: Nausea Stop: 11/04/22 16:29 Oxycodone HCl (Oxycodone Hcl Ir 5 Mg Tab (Immediate Release)) 5 - 10 mg PO Q4H PRN PRN Reason: Pain & Pre PT Stop: 10/19/22 16:29 Pneumococcal Polyvalent Vaccine (Do Not Administer Pneumococcal Vaccine) 1 each N/A PRN PRN PRN Reason: Notification Stop: 11/04/22 16:29 Polyethylene Glycol (Polyethylene (Miralax) 17 Gm Pack) 17 gm PO Q6 [facility] Stop: 11/05/22 05:59 Last Admin: 10/08/22 05:48 Dose: Not Given Senna/Docusate Sodium (Docusate Sodium/Senna 50/8.6mg Tab) 2 tab PO HS [facility] Stop: 11/04/22 20:59 Last Admin: 10/07/22 21:31 Dose: Not Given Sodium Biphosphate/Sodium Phosphate (Sod Phosphate/Sod Biphosphate Enema 132 Ml Btl) 132 ml [place] ONE PRN PRN Reason: Constipation Stop: 11/04/22 16:29 Sodium Chloride (Sodium Chloride 1 Gm Tablet) 2 gm PO BID [facility] Stop: 11/06/22 20:59 Last Admin: 10/08/22 08:34 Dose: 2 gm Urea (Urea (Urea-Na) 15 Gm Pack) 30 gm PO BID [facility] Stop: 11/06/22 12:29 Last Admin: 10/08/22 08:34 Dose: Not Given (3) Carbamazepine toxicity Encounter type: sequela Injury intent: accidental or unintentional Qualified Code(s): T42.1X1S - Poisoning by iminostilbenes, accidental (unintentional), sequela
[2022-10-08] MEDS ORDERED: MAGNESIUM SULFATE / D5W 1 GM/100 ML BAG IV ONE (12:56)
--- NOTE | 2022-10-08 15:57 | Nephrology Progress Note ---
Date of Service October 08, 2022 Assessment & Plan Admission and Anticipated Discharge Date Admission Date: October 05, 2022 Subjective Assessment & Plan (1) Acute hyponatremia: Sec to Severe SIADH. pain and nausea as well as Surgery are potent triggers for ADH Release. His urine osm is very high which means difficult to get the na Up easily. last one is 125. for today change to lasix 40 iv q8h to overcome the high urine osm. Continue urea 30 bid. add Salt tab 1 gm bid. lower FFR to 1200 ml per day. can do BMP q8h now. Control pain and nausea. He will need OP Nephrology f/u in 2-3 weeks time with repeat BMP. Final recs regarding the diuretic and Urea will be given at the time of discharge. S--feels fine. Making urine 2400 ml . Eating fine. Vital signs fine Physical Exam Physical Exam: CONSTITUTIONAL: Comfortable RESPIRATORY: clear to auscultation bilaterally, no crackles, rales or wheezes, normal respiratory effort CARDIOVASCULAR: regular rate and rhythm, S1 and 2 heard without murmurs, gallops or rubs, no JVD, no peripheral edema GASTROINTESTINAL: soft, nontender, ND, no guarding MUSCULOSKELETAL: NO edema SKIN: warm and dry Results & Data Vital Signs (Past 12 Hours) Vital Signs Temp Pulse Pulse Resp BP Pulse Ox O2 Del Method 10/08/22 11:08 36.8 C 77 18 120/74 95 Room Air 10/08/22 07:08 36.6 C 71 18 117/70 96 Room Air 10/08/22 07:00 78
[2022-10-08] MEDS ORDERED: FUROSEMIDE INJ 20 MG/2 ML VIAL IV SCH (16:00)
[2022-10-08] MEDS: FUROSEMIDE 40 MG/4 ML VIAL IV SCH (17:57)
[2022-10-08] MEDS: DOCUSATE SODIUM/SENNA 50/8.6MG TAB PO SCH (20:24)
[2022-10-08] MEDS: POTASSIUM CHLORIDE CRTAB 20 MEQ TABCR PO SCH (20:25)
[2022-10-08] MEDS: ATORVASTATIN 40 MG TAB PO SCH (20:25)
[2022-10-08] MEDS: LAMOTRIGINE 300 MG PO SCH (20:26)
[2022-10-09] MEDS: POLYETHYLENE (MIRALAX) 17 GM PACK PO SCH ×3 (00:03→11:45)
[2022-10-09] MEDS: ACETAMINOPHEN 1,000 MG/100 ML VIAL IV SCH ×2 (02:24→11:11)
[2022-10-09] MEDS: FUROSEMIDE 40 MG/4 ML VIAL IV SCH ×2 (02:25→08:35)
--- NOTE | 2022-10-09 07:15 | Orthopedic Progress Note ---
Date of Service October 09, 2022 Assessment & Plan (1) Spinal stenosis, lumbar region with neurogenic claudication: Plan: From an orthopedic perspective the patient is stable. His sodium levels still are low however. We will continue with GI DVT prophylaxis and continue with fluid restriction. We will see how he does over the next 24 hours and see if he is safe for home discharge tomorrow. Admission and Anticipated Discharge Date Admission Date: October 05, 2022 Subjective Patient is doing well postop day #4. His sodium still remains low at 128 today. He has minimal complaints. His leg pain has improved. He denies any other numbness, tingling, or paresthesias. Physical Exam Physical Exam: On exam he is alert and oriented. His visual holt are grossly intact. His abdomen soft nontender his calves are supple nontender. Strength and sensation are both intact. Cardiovascular exam reveals no gross abnormalities Results & Data Vital Signs (Past 12 Hours) Vital Signs Temp Pulse Pulse Pulse Resp BP BP 10/09/22 02:35 36.8 C 79 18 93/61 L 10/08/22 21:59 79 10/08/22 23:22 36.9 C 79 20 115/64 10/08/22 19:30 10/08/22 20:16 36.9 C 76 20 135/86 Pulse Ox O2 Del Method 10/09/22 02:35 97 Room Air 10/08/22 21:59 10/08/22 23:22 96 Room Air 10/08/22 19:30 Room Air 10/08/22 20:16 98 Room Air
[2022-10-09 07:19] LABS: Hematocrit (blood only) 32.3 % (42.0-52.0); Hemoglobin 11.9 g/dl (14.0-18.0); Mean Corpuscular Hemoglobin 32.4 pg (25.0-34.0); Mean Corpuscular Hgb Conc 36.8 g/dL (32.0-36.0); Mean Platelet Volume 9.3 fL (9.4-12.4); Platelet Count 258 K/uL (130-400); RDW Coefficient of Variation 11.7 % (11.5-14.5); RDW Standard Deviation 37.7 fL (36.4-46.3); Red Blood Count 3.67 M/uL (4.70-6.10); White Blood Count 8.85 K/ul (4.8-10.8)
[2022-10-09 07:44] LABS: BUN Creatinine Ratio 12.8 (10-20); Calcium 8.5 mg/dl (8.6-10.3); Creatinine Clr Calc Pharmacy 94.5 ml/min; Est GFR (African American) 98.9 ml/min; Est GFR (Non-African American) 85.3 ml/min; Potassium 3.3 mmol/L (3.5-5.1)
[2022-10-09] MEDS: CYANOCOBALAMIN (B-12) 500 MCG TABLET PO SCH (08:33)
[2022-10-09] MEDS: ASPIRIN 81 MG ECTAB PO SCH (08:33)
[2022-10-09] MEDS: POTASSIUM CHLORIDE CRTAB 20 MEQ TABCR PO SCH (08:33)
[2022-10-09] MEDS: carvediloL 3.125 MG TAB PO SCH (08:33)
[2022-10-09] MEDS: SODIUM CHLORIDE 1 GM TABLET PO SCH ×2 (08:33→10:23)
[2022-10-09] MEDS: UREA (UREA-NA) 15 GM PACK PO SCH (08:34)
[2022-10-09] MEDS ORDERED: POTASSIUM CHLORIDE CRTAB 20 MEQ TABCR PO SCH (09:00)
[2022-10-09] MEDS ORDERED: POTASSIUM CHLORIDE CRTAB 20 MEQ TABCR PO STA ×2 (10:05→10:08)
--- NOTE | 2022-10-09 10:09 | Hospitalist Progress Note ---
Date of Service October 09, 2022 Assessment & Plan (1) S/P spinal surgery: (2) Acute hyponatremia: Plan: Euvolemic, nausea has resolved. Continues on home dose carbamazepine for seizures which is 400mg PO BID. Cont treatment for SIADH including Lasix, salt tabs. Na 129 today. Discharge recs per nephrology with close followup wtih them in one week. (3) Carbamazepine toxicity: Plan: Given a higher dose of this med (600mg) than he typically takes at home x 1, possibly contributing to his symptoms of nausea and illness based on his prior experience with this medication. Home dosage was corrected. Resolved. (4) SIADH (syndrome of inappropriate ADH production): Plan: Cont plan as noted above. (5) Spinal stenosis, lumbar region with neurogenic claudication: Plan: Post op day#4 S/P T12-L2 decompression and fusion by Dr Vivienne LAY#200 ml Pain appears more controlled. Cont scheduled Tylenol. Wound management per ortho PT/OT as appropriate DVT prophylaxis per ortho Incentive spirometry Monitor H&H for anemia; stable Expected post op anemia (6) CAD (coronary artery disease): Plan: chronic, stable H/O STEMI, S/P stent RCA & right PDA in 2014 Hold plavix, resume per ortho spine Continue aspirin, atorvastatin, carvedilol, ramipril (7) Seizure disorder: Plan: Continue lamotrigine, Tegretol held in setting of hyponatremia. Tegretol level is pending. Will restart this afternoon as long as level is not exhibiting toxicity. Would recommend avoiding tramadol for pain as this may lower the seizure threshold. DVT Prophylaxis SCDs Disposition per primary service Follows with Dr Cali in [place] for routine care I spent a total of60 minutes coordinating, documenting, and providing care for this patient excluding time spent in the performance of separately billed services Bina Eugene DO [facility] Hospitalist Admission and Anticipated Discharge Date Admission Date: October 05, 2022 Subjective 62 yo M s/o lumbar surgery POD #4 pain remains well controlled Na up to 129 with treatment. tolerating PO Denies nausea or other symptoms Eager to return home today and states he isn't getting any sleep and doesn't want to provoke a seizure. Review of Systems Review of Systems: All systems were reviewed and negative except as indicated on HPI above. Physical Exam Physical Exam: CONSTITUTIONAL: WNWD, vitals as above, generally well-appearing, NAD EYES: normal conjunctivae, no scleral icterus ENT: external ear and nose normal, MMM NECK: trachea midline RESPIRATORY: clear to auscultation bilaterally, no crackles, rales or wheezes, normal respiratory effort CARDIOVASCULAR: regular rate and rhythm, S1 and 2 heard without murmurs, gallops or rubs, no JVD, no peripheral edema CHEST: inspection of chest was normal GASTROINTESTINAL: soft, generalized tenderness after vomiting, ND, no guarding MUSCULOSKELETAL: strength 5/5 throughout, head is normocephalic and atraumatic, KEERTHI drain in place. SKIN: warm and dry NEUROLOGIC: CN 2-12 grossly intact, no sensory deficit, normal cognition, normal speech, no tremor PSYCHIATRIC: alert cooperative and oriented to person, place and time. Euthymic mood, makes good eye contact, language grossly intact, recent and r emote memory grossly intact. Results & Data Results & Data Vital Signs (Past 12 Hours) Vital Signs Temp Pulse Pulse Pulse Resp BP Pulse Ox 10/09/22 07:00 77 10/09/22 07:17 36.7 C 70 18 143/74 H 96 10/09/22 02:35 36.8 C 79 18 93/61 L 97 10/08/22 23:22 36.9 C 79 20 115/64 96 O2 Del Method 10/09/22 07:00 10/09/22 07:17 Room Air 10/09/22 02:35 Room Air 10/08/22 23:22 Room Air Laboratory Results Short CBC 10/09/22 Range/Units 06:15 WBC 8.85 (4.8-10.8) K/ul Hgb 11.9 L (14.0-18.0) g/dl Hct 32.3 L (42.0-52.0) % Plt Count 258 (130-400) K/uL BMP 10/08/22 10/08/22 10/09/22 14:35 20:01 01:00 Sodium 125 L 127 L 128 L Potassium Chloride Carbon Dioxide BUN Creatinine Glucose Calcium 10/09/22 06:15 Sodium 129 L Potassium 3.3 L Chloride 92 L Carbon Dioxide 31 BUN 12 Creatinine 0.94 Glucose 107 H Calcium 8.5 L Medications Administered Current Inpatient Medications Acetaminophen (Acetaminophen 500 Mg Tab) 1,000 mg PO Q8H PRN PRN Reason: MILD Pain Scale 1,2,3 & Pre PT Stop: 11/04/22 16:29 Al Hydrox/Mg Hydrox/Simethicone (Aluminum/Magnesium Susp 30 Ml Udc) 30 ml PO Q6H PRN PRN Reason: Dyspepsia Stop: 11/04/22 16:29 Aspirin (Aspirin 81 Mg Ectab) 81 mg PO QAM [facility] Stop: 11/05/22 08:59 Last Admin: 10/09/22 08:33 Dose: 81 mg Atorvastatin Calcium (Atorvastatin 40 Mg Tab) 40 mg PO HS [facility] Stop: 11/04/22 20:59 Last Admin: 10/08/22 20:25 Dose: 40 mg Bisacodyl (Bisacodyl 10 Mg Supp) 10 mg [place] DAILY PRN PRN Reason: Constipation Stop: 11/04/22 16:29 Carbamazepine (Carbamazepine 200 Mg Tabcr) 400 mg PO BID [facility] Stop: 11/06/22 08:59 Last Admin: 10/09/22 08:36 Dose: 400 mg Carvedilol (Carvedilol 3.125 Mg Tab) 3.125 mg PO BID [facility] Stop: 11/04/22 20:59 Last Admin: 10/09/22 08:33 Dose: 3.125 mg Cyanocobalamin (Cyanocobalamin (B-12) 500 Mcg Tablet) 1,000 mcg PO QAM [facility] Stop: 11/05/22 08:59 Last Admin: 10/09/22 08:33 Dose: 1,000 mcg Diphenhydramine HCl (Diphenhydramine Capsule 25 Mg Cap) 25 mg PO Q6H PRN PRN Reason: Allergic Rhinitis/Insomnia Stop: 11/04/22 16:29 Famotidine (Famotidine 20 Mg Tab) 20 mg PO Q12H PRN PRN Reason: Dyspepsia Stop: 11/04/22 16:29 Furosemide (Furosemide 40 Mg/4 Ml Vial) 40 mg IV Q8H [facility] Stop: 11/07/22 15:59 Last Admin: 10/09/22 08:35 Dose: 40 mg Hydromorphone HCl (Hydromorphone Inj 0.5 Mg/0.5 Ml Syr) 0.5 mg IV Q3H PRN PRN Reason: MODERATE Pain (Scale 4,5,6) & Pre PT Stop: 10/19/22 16:29 Hydroxyzine HCl (Hydroxyzine Hcl 25 Mg Tab) 25 mg PO Q8H PRN PRN Reason: Anxiety Stop: 11/04/22 16:29 Promethazine HCl 12.5 mg/ (Sodium Chloride) 50.5 mls @ 202 mls/hr IV Q6H PRN PRN Reason: Nausea &/or Vomiting Stop: 11/04/22 16:29 Acetaminophen (Ofirmev) 1,000 mg in 100 mls @ 400 mls/hr IV Q8H [facility] Stop: 10/10/22 09:44 Last Infusion: 10/09/22 02:39 Dose: Infused Influenza Virus Vaccine Quadrival (Do Not Administer Flu Vaccine) 1 each N/A PRN PRN PRN Reason: Notification Stop: 11/04/22 16:29 Lamotrigine (Lamotrigine Er 300mg Tab) 1 each PO HS [facility] Stop: 11/04/22 20:59 Last Admin: 10/08/22 20:26 Dose: 1 each Lorazepam (Lorazepam 0.5 Mg Tab) 0.5 mg PO Q8H PRN PRN Reason: Anxiety Stop: 11/04/22 16:29 Lorazepam (Lorazepam 2 Mg/1 Ml Vial) 0.5 mg IV Q8H PRN PRN Reason: Anxiety Stop: 11/04/22 16:29 Magnesium Hydroxide (Magnesium Hydroxide Susp 30 Ml Udc) 30 ml PO Q24H PRN PRN Reason: Constipation Stop: 11/04/22 16:29 Metoclopramide HCl (Metoclopramide Hcl Inj 5 Mg/Ml 2 Ml Vial) 10 mg IV Q6H PRN PRN Reason: Nausea &/or Vomiting Stop: 11/04/22 16:29 Naloxone HCl (Naloxone Hcl 0.4 Mg/1 Ml Vial/Carp) 0.1 mg IV Q5M PRN PRN Reason: Oversedation/Resp depression Stop: 11/04/22 16:29 Ondansetron HCl (Ondansetron Inj 2 Mg/Ml 2 Ml Vial) 4 mg IV Q6H PRN PRN Reason: Nausea &/or Vomiting Stop: 11/04/22 16:29 Last Admin: 10/08/22 02:06 Dose: 4 mg Ondansetron HCl (Ondansetron 4 Mg Od Tab) 4 mg PO Q6H PRN PRN Reason: Nausea Stop: 11/04/22 16:29 Oxycodone HCl (Oxycodone Hcl Ir 5 Mg Tab (Immediate Release)) 5 - 10 mg PO Q4H PRN PRN Reason: Pain & Pre PT Stop: 10/19/22 16:29 Pneumococcal Polyvalent Vaccine (Do Not Administer Pneumococcal Vaccine) 1 each N/A PRN PRN PRN Reason: Notification Stop: 11/04/22 16:29 Polyethylene Glycol (Polyethylene (Miralax) 17 Gm Pack) 17 gm PO Q6 [facility] Stop: 11/05/22 05:59 Last Admin: 10/09/22 05:32 Dose: Not Given Potassium Chloride (Potassium Chloride Crtab 20 Meq Tabcr) 20 meq PO BID [facility] Stop: 11/07/22 20:59 Last Admin: 10/09/22 08:33 Dose: 20 meq Potassium Chloride (Potassium Chloride Crtab 20 Meq Tabcr) 40 meq PO NOW STA Stop: 10/09/22 10:09 Senna/Docusate Sodium (Docusate Sodium/Senna 50/8.6mg Tab) 2 tab PO HS [facility] Stop: 11/04/22 20:59 Last Admin: 10/08/22 20:24 Dose: Not Given Sodium Biphosphate/Sodium Phosphate (Sod Phosphate/Sod Biphosphate Enema 132 Ml Btl) 132 ml [place] ONE PRN PRN Reason: Constipation Stop: 11/04/22 16:29 Sodium Chloride (Sodium Chloride 1 Gm Tablet) 2 gm PO BID [facility] Stop: 11/06/22 20:59 Last Admin: 10/09/22 08:33 Dose: 2 gm Sodium Chloride (Sodium Chloride 1 Gm Tablet) 1 gm PO BID [facility] Stop: 11/07/22 15:59 Last Admin: 10/08/22 20:26 Dose: 1 gm Urea (Urea (Urea-Na) 15 Gm Pack) 30 gm PO BID [facility] Stop: 11/06/22 12:29 Last Admin: 10/09/22 08:34 Dose: Not Given (3) Carbamazepine toxicity Encounter type: sequela Injury intent: accidental or unintentional Qualified Code(s): T42.1X1S - Poisoning by iminostilbenes, accidental (unintentional), sequela
--- NOTE | 2022-10-09 12:04 | Nephrology Progress Note ---
Date of Service October 09, 2022 Assessment & Plan Admission and Anticipated Discharge Date Admission Date: October 05, 2022 Subjective Assessment & Plan (1) Acute hyponatremia: Sec to Severe SIADH. pain and nausea as well as Surgery are potent triggers for ADH Release. His urine osm is very high which means difficult to get the na Up easily but did go up slightly to 129 now. Continue urea 30 bid. Salt tab 3 gm bid. lower FFR to 1200 ml per day. can do BMP q24h now. Control pain and nausea. Rec for Discharge: 1 Urea 30 bid. 2 lasix 40 bid 3 Salt tab 2 gm bid. 4 BMP to be done in [facility] on Monday. My clinic nurse will order under my name. 5 f/u within this week with me. S--feels fine. made 4100 ml urine yesterday with Lasix but now BP is low . Eating fine. really wants to go home. Physical Exam Physical Exam: CONSTITUTIONAL: Comfortable RESPIRATORY: clear to auscultation bilaterally, no crackles, rales or wheezes, normal respiratory effort CARDIOVASCULAR: regular rate and rhythm, S1 and 2 heard without murmurs, gallops or rubs, no JVD, no peripheral edema GASTROINTESTINAL: soft, nontender, ND, no guarding MUSCULOSKELETAL: NO edema SKIN: warm and dry Results & Data Vital Signs (Past 12 Hours) Vital Signs Temp Pulse Pulse Resp BP Pulse Ox O2 Del Method 10/09/22 10:54 36.7 C 72 18 98/64 L 96 Room Air 10/09/22 07:00 77 10/09/22 07:17 36.7 C 70 18 143/74 H 96 Room Air 10/09/22 02:35 36.8 C 79 18 93/61 L 97 Room Air
--- NOTE | 2022-10-10 10:41 | Discharge Summary ---
Date of Service October 10, 2022 Admission HPI Per Admitting Provider This is a 62-year-old male who presents with chronic persistent back and leg pain after failing course of nonoperative care is here for surgical invention. Principal Diagnosis Lumbar spinal stenosis with neurogenic claudication Discharge Data Allergies Allergy/AdvReac Type Severity Reaction Status Date / Time Iodinated Contrast Media Allergy Severe SEE NOTES Verified 10/05/22 10:25 Consultations 10/05/22 16:30 Consult Hospitalist Routine 10/06/22 21:43 Consult Nephrology Routine Procedures Performed Operation Date: 10/05/22 11:55 Actual Procedures p L1-L2 Decompression, T11-L2 Fusion, Spinal Cord Monitoring(Bilateral) - Joe Palafox DO s With hardware removal(Bilateral) - Joe Palafox DO Ordered Studies 10/05/22 11:55 FL lumbar spine 2-3V Routine Hospital Course (1) Spinal stenosis, lumbar region with neurogenic claudication: Patient went lumbar decompression fusion tolerated as well as taken to orthopedic for postoperative. Postop day 1 is up and ambulating unfortunately postop day or 2 we struggled with some hyponatremia and was transferred to the PCU. He progressed appropriately afterwards. KEERTHI drain decreasing probably. Excellent strength testing. Subsequent discharge home. Discharge orders instructions found in chart for further review. Total Time Total Time Spent Total Time Spent (In Minutes): 20 minutes Discharge Plan Discharge Items Patient Disposition: Home - Self-Care Reason For Visit: POSTOP Discharge Diagnosis: Lumbar spinal stenosis with neurogenic claudication Condition on Discharge: Good Activity: As commented below Non-emergency contact: Primary Care Provider Call non-emergency contact if: you have any medication questions Follow-up/Referrals: Roland Cali MD [Primary Care Provider] - Diet: Regular Addtl Attending Provider Instructions: ACTIVITY RECOMMENDATIONS: SELF CARE INSTRUCTIONS AFTER THORACIC/LUMBAR FUSIONS 1. You may walk to your tolerance. It is good exercise for your legs and back. Expect some back and intermittent leg aches and pains. 2. You may perform "counter-top" level activities (make a sandwich, missy with a project, etc.). 3. No bending or lifting of more than 10 pounds or back twisting of any nature (roll like a log when turning in bed). 4. You may ride in a car for 20-30 minutes at a time. No driving until after your first visit with your doctor. 5. Frequent changes of position and restricting sitting to 30 minutes at a time will help limit the amount of back spasms and stiffness you may experience. 6. You may discontinue the use of ambulatory aids (cane, crutches, etc.) once your strength and confidence allow. 7. You may machine repair person the shower and let water strike your incision when you arrive home at least once daily. Do not take a tub bath, sit in a hot tub or go into a swimming pool until after your first recheck in the office. SPECIAL CARE INSTRUCTIONS: VERY IMPORTANT TO READ AND REVIEW A. Your surgical incision has been closed with a cosmetic suture under the skin that will dissolve in about 6 weeks. In 14 days, you can use a pair of clean scissors and cut the suture that is left outside of the skin at the ends of your incision. 1. The small skin tapes can be removed 7 days after surgery if they have not fallen off by that point. 2. You may keep the wound open to air as much as possible to promote healing after post-op day number 5 unless told otherwise by your doctor. 3. If you think the wound looks like it is becoming infected (redness or worsening drainage) and/or you are experiencing fever, chill or worsening back pain and muscle spasms, contact the office so that we may evaluate you as soon as possible. B. Complications are uncommon, but please contact us if you have any signs or symptoms of: 1. wound infection (fever higher than 102.5 degrees F, redness, separation of wound, drainage, or increasing pain from the incision) 2. blood clots in legs (pain, swelling, redness and warmth in legs) 3. urinary tract infection (fever higher than 102.5 degrees F, burning upon urination or increased frequency of urination) 4. nerve problems (inability to walk on your toes or heels, numbness, loss of bowel or bladder control) 5. any other symptoms that concern you C. Please call the office at if you have any concerns or questions about your operation or recovery. D. No smoking! Smoking drastically decreases the chance of a solid fusion. E. Do not take any anti-inflammatory medications (Indocin, Advil, Motrin, Aspirin, Naprosyn, etc.) as these may inhibit the chance of a solid fusion. Tylenol is okay to take for pain. MANAGING PAIN AFTER SPINAL SURGERY 1. Narcotic medication is intended for short-term use and will be provided for surgical pain. Surgical pain usually lasts for a period of 4-6 weeks. Narcotic medication includes Percocet, Vicodin, Darvocet, Tylenol #3 or Lortab. 2. Longer-term pain is more appropriately treated with non-narcotic medication such as Tylenol ES. 3. Muscle spasm is not appropriately treated with narcotics. Muscle relaxers such as Soma, Flexeril or Skelaxin can be used along with Tylenol ES. 4. Remember that we all live with some "aches and pains". This is not unusual or uncommon after an injury or as we get older. a. Back pain is expected and may include muscle spasms for 4 to 6 weeks after surgery. The pain should gradually improve. If the pain worsens for no apparent reason, please contact the office. b. Intermittent leg pain may also be experienced and should not be concerned about unless it worsens for no apparent reason. If so, please contact the office. 5. We will provide appropriate medication within the normal guidelines of their prescribed use. We will also be very cautious and aware of potential abuse and extended duration of patients' medication needs. a. Pain medications are for your comfort and to assist with sleep and rest so that the tissue can heal. They are not provided in order to return to normal activity and should not be used through the day. To do so or worsening pain at night can result from ongoing tissue damage and development of tolerance to the prescribed medicine. 6. Please allow 2-3 days to process refills. Prescriptions will not be mailed but must be picked up at the office. FOLLOW UP VISIT: Keep your scheduled follow-up appointment. Any questions, please call the office at . Addtl Hosiery Operator Provider Instructions: For your low sodium please take urea, Lasix and salt tabs as prescribed. Within 1 week you will need a basic metabolic panel which will be ordered by Dr. Edmond Thompson from [facility]. Please follow-up with him within 1 week. His nurse will be contacting you to set up the appointment. It is recommended that you follow-up with your primary care doctor within 1 week of discharge from the hospital to ensure you are doing well on the new medications and feeling well postop. Please follow-up with Orthopedics as noted above. It was a pleasure taking care of you! Please call if you have any questions or problems. You can reach a [facility] hospitalist on duty at [facility] 24 hours a day by calling [phone]. Take care of yourself. Bina Eugene, DO [facility] Hospitalist Pending Studies at Discharge: No Stand-Alone Forms: [facility] Medications and DC Order Prescriptions: New tramadol 50 mg tablet 50 mg PO Q6H PRN (Reason: pain, moderate) Qty: 30 0RF oxycodone 5 mg tablet 5 mg PO Q6H PRN (Reason: pain) Qty: 30 0RF potassium chloride 20 mEq Tablet,Er Particles/Crystals 20 meq PO BID Qty: 60 0RF Rx Instructions: take with furosemide Ure-Na 15 gram Powder In Packet 30 g PO BID Qty: 60 1RF furosemide [Lasix] 40 mg tablet 40 mg PO BID Qty: 60 0RF Continued carvedilol [Coreg] 3.125 mg Tablet 3.125 mg PO BID ramipril [Altace] 2.5 mg Capsule 2.5 mg PO BID multivitamin [Multiple Vitamins] Tablet 1 tab PO QAM atorvastatin 40 mg Tablet 40 mg PO HS clopidogrel 75 mg Tablet 75 mg PO QAM aspirin [Aspir-81] 81 mg Tablet,Delayed Release (Dr/Ec) 81 mg PO QAM lamotrigine [Lamictal XR] 300 mg Tablet Extended Release 24hr 300 mg PO HS carbamazepine [Tegretol XR] 200 mg Tablet Extended Release 12 Hr 400 mg PO BID cyanocobalamin (vitamin B-12) 1,000 mcg Capsule 1,000 mcg PO QAM Discharge Orders: Discharge Order (Routine); Ordered 10/09/22 Ordered By: Joe Palafox Admission Data Admit Date/Time: 10/05/22 14:30 Attending Provider: Joe Palafox Admit Provider: Joe Palafox Primary Care Provider: Roland Cali Other Providers: Bina Eugene ; Ewelina Singh Other Interventions: Discharge Summary Assessment (RN) Last Done: 10/09/22 13:10
== END 2022-10-09 13:35 | disposition home or self-care (01) | DRG 454 ==
LOC: ASU 10:02 → 3N 14:30 → 2S 10-07 11:07